=== PATIENT | male | born 1940 | race African-American/Black ===

== ENCOUNTER 2017-07-13 17:52 | Inpatient (IN) | payer MEDICARE ==
[~2017-07-13] VITALS: Ht 182.9 cm; Wt 77.2 kg
[~2017-07-13 17:52] MED LIST: ASPI-612 PO; ASPI325T8 PO; ATOR20TA58 PO; BRIM5DRO2 OP; DORZ10DR3 EACHEYE; FINA5TAB4 PO; LATA2.5D3 EACHEYE; LISI-338 PO; METO25TA4 PO; TAMS0.4C2 PO; TICA90TA PO
[2017-07-13 18:23] LABS: BASO # 0.1 x10^3/uL (0.0-0.2); BASO % 1 % (0-3); EOS % 4 % (0-3); HEMOGLOBIN 13.9 g/dL (13.0-17.5); LYMPH # 1.4 x10^3/uL (1.0-4.8); LYMPH % 22 % (24-48); MEAN CORPUSCULAR HEMOGLOBIN 33 pg (25-35); MEAN CORPUSCULAR HGB CONC 34 g/dL (31-37); MEAN CORPUSCULAR VOLUME 97 fL (79-100); MONO % 10 % (0-9); NEUT % 64 % (31-73); PLATELET COUNT 215 x10^3/uL (140-400); RED BLOOD COUNT 4.23 x10^6/uL (4.30-5.70); RED CELL DISTRIBUTION WIDTH 13.8 % (11.5-14.5); WHITE BLOOD COUNT 6.5 x10^3/uL (4.0-11.0)
[2017-07-13] MEDS ORDERED: LIDO:MAALOX:DONNATAL 1:1:1 15 ML SINGLE DOSE SWSW ONE (18:30)
[2017-07-13 18:40] LABS: CALCIUM 9.6 mg/dL (8.5-10.1); CREATININE 1.2 mg/dL (0.7-1.3); POTASSIUM 4.2 mmol/L (3.5-5.1)
[2017-07-13] MEDS ORDERED: ALBUTEROL SULFATE 2.5 MG/3 ML NEBU. NEB ONE (18:45)
[2017-07-13] MEDS ORDERED: HYDROcodone/APAP 5/325MG 1 TAB TABLET PO ONE (18:45)
[2017-07-13] MEDS ORDERED: fentaNYL PF VIAL 100 MCG/2 ML VIAL IV PRN (18:45)
[2017-07-13] MEDS ORDERED: ONDANSETRON PF 4 MG/2 ML VIAL. IV PRN ×2 (18:45→19:45)
[2017-07-13] MEDS ORDERED: ONDANSETRON PF 4 MG/2 ML VIAL. IV ONE (18:45)
[2017-07-13] MEDS ORDERED: OXYMETAZOLINE 0.05% NASAL SPRAY 30ML BOTTLE. NS ONE (18:45)
[2017-07-13 18:49] LABS: ALBUMIN 3.9 g/dL (3.4-5.0); ALBUMIN/GLOBULIN RATIO 1.1 (1.0-1.7); TOTAL BILIRUBIN 0.4 mg/dL (0.2-1.0); TOTAL PROTEIN 7.4 g/dL (6.4-8.2)
[2017-07-13 19:17] LABS: INR 1.1 (0.8-1.1); PROTHROMBIN TIME PATIENT 13.2 SEC (11.7-14.0)
--- NOTE | 2017-07-13 19:18 | PHYS DOC ---
Past Medical History Past Medical History: High Cholesterol, Hypertension, Other Additional Past Medical Histor: ENLARGED PROSTATE Past Surgical History: Other Additional Past Surgical Histo: STENTS Alcohol Use: None Drug Use: None Adult General Chief Complaint Chief Complaint: CHEST PAIN HPI HPI Patient is a 77 year old male presenting to the emergency department for evaluation of left-sided chest pressure that has been going off and on for the past several weeks but it was much worse today. He thinks that it may get slightly worse with exertion but also says it feels worse after eating as well. He has had some diaphoresis but no nausea vomiting or shortness of breath. He says that this pain feels similar to when he had to get his stents approximately one year ago. 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 Patient took 2 full dose aspirins today in addition to his Plavix. He is in no obvious distress with normal vital signs. Review of Systems Review of Systems Constitutional: Denies fever or chills [] Eyes: Denies change in visual acuity, redness, or eye pain [] HENT: Denies nasal congestion or sore throat [] Respiratory: Denies cough or shortness of breath [] Cardiovascular: + CP GI: Denies abdominal pain, nausea, vomiting, bloody stools or diarrhea [] : Denies dysuria or hematuria [] Musculoskeletal: Denies back pain or joint pain [] Integument: Denies rash or skin lesions [] Neurologic: Denies headache, focal weakness or sensory changes [] All other systems were reviewed and found to be within normal limits, except as documented in this note. Allergies Allergies Allergies Coded Allergies Type Severity Reaction Last Updated Verified No Known Drug Allergies 06/15/16 No Physical Exam Physical Exam Constitutional: Well developed, well nourished, no acute distress, non-toxic appearance. [] HENT: Normocephalic, atraumatic, bilateral external ears normal, oropharynx moist, no oral exudates, nose normal. [] Eyes: PERRLA, EOMI, conjunctiva normal, no discharge. [] Neck: Normal range of motion, no tenderness, supple, no stridor. [] Cardiovascular:Heart rate regular rhythm, no murmur [] Lungs & Thorax: Bilateral breath sounds clear to auscultation [] Abdomen: Bowel sounds normal, soft, no tenderness, no masses, no pulsatile masses. [] Skin: Warm, dry, no erythema, no rash. [] Back: No tenderness, no CVA tenderness. [] Extremities: No tenderness, no cyanosis, no clubbing, ROM intact, no edema. [] Neurologic: Alert and oriented X 3, normal motor function, normal sensory function, no focal deficits noted. [] Current Patient Data Vital Signs Vital Signs Date Time Temp Pulse Resp B/P (MAP) Pulse Ox O2 Delivery O2 Flow Rate FiO2 07/13/17 18:16 97.7 67 18 136/67 (90) 94 Room Air 97.7 Lab Values Laboratory Tests Test 07/13/17 18:10 07/13/17 18:12 Sodium Level 140 mmol/L (136-145) Potassium Level 4.2 mmol/L (3.5-5.1) Chloride Level 108 mmol/L (98-107) H Carbon Dioxide Level 26 mmol/L (21-32) Anion Gap 6 (6-14) Blood Urea Nitrogen 18 mg/dL (8-26) Creatinine 1.2 mg/dL (0.7-1.3) Estimated GFR (Cockcroft-Gault) 71.0 BUN/Creatinine Ratio 15 (6-20) Glucose Level 109 mg/dL (70-99) H Calcium Level 9.6 mg/dL (8.5-10.1) Total Bilirubin 0.4 mg/dL (0.2-1.0) Aspartate Amino Transferase (AST) 23 U/L (15-37) Alanine Aminotransferase (ALT) 26 U/L (16-63) Alkaline Phosphatase 61 U/L (46-116) Troponin I Quantitative < 0.017 ng/mL (0.000-0.055) YU-Gpf-S-Type Natriuretic Peptide 57 pg/mL (0-449) Total Protein 7.4 g/dL (6.4-8.2) Albumin 3.9 g/dL (3.4-5.0) Albumin/Globulin Ratio 1.1 (1.0-1.7) Lipase 556 U/L (73-393) H White Blood Count 6.5 x10^3/uL (4.0-11.0) Red Blood Count 4.23 x10^6/uL (4.30-5.70) L Hemoglobin 13.9 g/dL (13.0-17.5) Hematocrit 41.0 % (39.0-53.0) Mean Corpuscular Volume 97 fL (79-100) Mean Corpuscular Hemoglobin 33 pg (25-35) Mean Corpuscular Hemoglobin Concent 34 g/dL (31-37) Red Cell Distribution Width 13.8 % (11.5-14.5) Platelet Count 215 x10^3/uL (140-400) Neutrophils (%) (Auto) 64 % (31-73) Lymphocytes (%) (Auto) 22 % (24-48) L Monocytes (%) (Auto) 10 % (0-9) H Eosinophils (%) (Auto) 4 % (0-3) H Basophils (%) (Auto) 1 % (0-3) Neutrophils # (Auto) 4.1 x10^3uL (1.8-7.7) Lymphocytes # (Auto) 1.4 x10^3/uL (1.0-4.8) Monocytes # (Auto) 0.6 x10^3/uL (0.0-1.1) Eosinophils # (Auto) 0.3 x10^3/uL (0.0-0.7) Basophils # (Auto) 0.1 x10^3/uL (0.0-0.2) Laboratory Tests 07/13/17 18:12 Laboratory Tests 07/13/17 18:10 EKG EKG Sinus rhythm at 66 beats per minutes with leftward axis no obvious ST elevation or depression with Q waves in the anterior leads and inverted and flattened T waves in the lateral leads Radiology/Procedures Radiology/Procedures [] Course & Med Decision Making Course & Med Decision Making Patient with chest pain and is concerning for possible ischemia given he describes it as the same prior to his stenting. Patient said the GI cocktail helped somewhat however he is still has some discomfort. Lipase is slightly elevated but he has no abdominal tenderness to 90 think that he has pancreatitis. Patient will be admitted for further evaluation and treatment. Dragon Disclaimer Dragon Disclaimer This electronic medical record was generated, in whole or in part, using a voice recognition dictation system. Departure Departure Impression: Primary Impression: Chest pain Additional Impression: Elevated lipase Disposition: ADMITTED INPATIENT Admitting Physician: Almaz Medina Condition: STABLE Referrals: ROSE SAMSON MD (PCP) Problem Qualifiers Primary Impression: Chest pain Chest pain type: unspecified Qualified Codes: R07.9 - Chest pain, unspecified DE PAULA DO Jul 13, 2017 19:18
[2017-07-13] MEDS ORDERED: ACETAMINOPHEN 325 MG TABLET. PO PRN (19:30)
--- NOTE | 2017-07-13 20:03 | PDOC1 ---
History and Physical Date of Admission Date of Admission DATE: 07/13/17 TIME: 19:59 Identification/Chief Complaint Chief Complaint CP Problems: Source Source: Caregiver, Chart review, Patient History of Present Illness History of Present Illness Very pleasant 77 y.o AA male with 2 indwelling stents last placed 2016 marcy Wilmer Zamarripa, has been having intermittent CP last few weeks worse today, midsternal after exertion and also after eating, some mild diaphoresis, no emesis, no SOA, no presyncopal sxs.. EKG reassuring, first set trop 0.04. Still having some left sided dc, feels achy, VS ok, CLaims compliance to his ASA 81 and Brilinta, ABout to have CXR now, Admitted for ACS r.o Wants to just stay overnight, not any longer if possible, Past Medical History Cardiovascular: CAD, HTN Renal/: Benign prostatic enlarg. Past Surgical History Past Surgical History: Other (PCI 2 stents), No pertinent history Family History Family History: No Significant, Hypertension Social History Smoke: No ALCOHOL: none Drugs: None Current Problem List Problem List Problems Medical Problems: (1) Chest pain Status: Acute (2) Elevated lipase Status: Acute Problems: Current Medications Current Medications Current Medications Multi-Ingredient Mouthwash/Gargle (Gi Cocktail Single Dose) 15 ml 1X ONCE SWSW Last administered on 07/13/17 18:46; Start 07/13/17 at 18:30; Stop at 18:31; Status DC Ondansetron HCl (Zofran) 8 mg 1X ONCE IV Last administered on 07/13/17 18:46 ; Start 07/13/17 at 18:45; Stop 07/13/17 at 18:56; Status DC Acetaminophen/ Hydrocodone Bitart (Lortab 5/325) 2 tab 1X ONCE PO Last administered on 07/13/17 18:45; Start 07/13/17 at 18:45; Stop 07/13/17 at 18 :56; Status DC Albuterol Sulfate (Ventolin Neb Soln) 5 mg 1X ONCE NEB ; Start 07/13/17 at 18: 45; Stop 07/13/17 at 18:56; Status DC Oxymetazoline HCl (Afrin) 2 spray 1X ONCE NS ; Start 07/13/17 at 18:45; Stop 07/13/17 at 18:56; Status DC Ondansetron HCl (Zofran) 4 mg PRN Q8HRS PRN IV NAUSEA/VOMITING; Start at 18:45; Stop 07/13/17 at 19:32; Status DC Fentanyl Citrate (Fentanyl 2ml Vial) 50 mcg PRN Q2HR PRN IV PAIN; Start at 18:45; Stop 07/14/17 at 18:44 Ondansetron HCl (Zofran) 4 mg PRN Q6HRS PRN IV NAUSEA/VOMITING; Start at 19:45 Acetaminophen (Tylenol) 650 mg PRN Q6HRS PRN PO pain; Start 07/13/17 at 19:30 Aspirin (Ecotrin) 81 mg DAILYWBKFT PO ; Start 07/14/17 at 08:00 Atorvastatin Calcium (Lipitor) 20 mg QHS PO ; Start 07/13/17 at 21:00 Dorzolamide HCl (Trusopt) 1 drop BID OU ; Start 07/13/17 at 21:00 Finasteride (Proscar) 5 mg DAILY PO ; Start 07/14/17 at 09:00 Latanoprost (Xalatan) 1 drop QHS OU ; Start 07/13/17 at 21:00 Lisinopril (Prinivil) 5 mg DAILY PO ; Start 07/14/17 at 09:00 Metoprolol Tartrate (Lopressor) 12.5 mg BID PO ; Start 07/13/17 at 21:00 Tamsulosin HCl (Flomax) 0.4 mg DAILY PO ; Start 07/14/17 at 09:00 Ticagrelor (Brilinta) 90 mg BID PO ; Start 07/13/17 at 21:00 Brimonidine Tartrate (Alphagan) 1 drop BID OU ; Start 07/13/17 at 21:00 Timolol Maleate (Timoptic 0.5% Ophth) 1 drop BID OU ; Start 07/13/17 at 21:00 Active Scripts Active Brilinta (Ticagrelor) 90 Mg Tablet 90 Mg PO BID Metoprolol Tartrate 25 Mg Tablet 12.5 Mg PO BID Lisinopril 5 Mg Tablet 5 Mg PO DAILY Atorvastatin Calcium 20 Mg Tablet 20 Mg PO QHS Aspirin Ec (Aspirin) 81 Mg Tablet. 81 Mg PO DAILYWBKFT Reported Latanoprost 2.5 Ml Drops 1 Drop EACHEYE QHS Dorzolamide Hcl 10 Ml Drops 1 Drop EACHEYE BID Tamsulosin Hcl 0.4 Mg Cap.er.24h 0.4 Mg PO DAILY Finasteride 5 Mg Tablet 5 Mg PO DAILY Combigan Eye Drops (Brimonidine Tartrate/Timolol) 5 Ml Drops 5 Ml OP BID Allergies Allergies: Coded Allergies: No Known Drug Allergies (Unverified , 06/15/16) ROS Review of System as per HPI all else is neg 14 pt reviewed Physical Exam General: Alert, Oriented X3, Cooperative, No acute distress HEENT: Atraumatic, PERRLA Lungs: Clear to auscultation, Normal air movement Heart: S1S2, RRR, no thrills, no rubs, no gallops Cardiovascular: S1, S2 Breasts: Normal, Rt breast nml w/o mass, Lt breast nml w/o mass, Nipples normal Abdomen: Normal bowel sounds, Soft, No tenderness, No hepatosplenomegaly, No masses Male Genitals Exam: normal genitalia, normal prostate Rectal Exam: not examined PELVIC: Nml ext genitalia Extremities: No clubbing, No cyanosis, No edema, Normal pulses, No tenderness/ swelling Skin: No rashes, No breakdown, No significant lesion Neuro: Normal gait, Normal speech, Strength at 5/5 X4 ext, Normal tone, Sensation intact, Cranial nerves 3-12 NL, Reflexes 2+ Psych/Mental Status: Mental status NL, Mood NL Vitals Vitals Vital Signs Date Time Temp Pulse Resp B/P (MAP) Pulse Ox O2 Delivery O2 Flow Rate FiO2 07/13/17 18:45 Room Air 07/13/17 18:16 97.7 67 18 136/67 (90) 94 97.7 Labs Labs Laboratory Tests Test 07/13/17 18:10 07/13/17 18:12 07/13/17 18:54 Sodium Level 140 mmol/L (136-145) Potassium Level 4.2 mmol/L (3.5-5.1) Chloride Level 108 mmol/L (98-107) Carbon Dioxide Level 26 mmol/L (21-32) Anion Gap 6 (6-14) Blood Urea Nitrogen 18 mg/dL (8-26) Creatinine 1.2 mg/dL (0.7-1.3) Estimated GFR (Cockcroft-Gault) 71.0 BUN/Creatinine Ratio 15 (6-20) Glucose Level 109 mg/dL (70-99) Calcium Level 9.6 mg/dL (8.5-10.1) Total Bilirubin 0.4 mg/dL (0.2-1.0) Aspartate Amino Transf (AST/SGOT) 23 U/L (15-37) Alanine Aminotransferase (ALT/SGPT) 26 U/L (16-63) Alkaline Phosphatase 61 U/L (46-116) Troponin I Quantitative < 0.017 ng/mL (0.000-0.055) JV-Hyr-B-Type Natriuretic Peptide 57 pg/mL (0-449) Total Protein 7.4 g/dL (6.4-8.2) Albumin 3.9 g/dL (3.4-5.0) Albumin/Globulin Ratio 1.1 (1.0-1.7) Lipase 556 U/L (73-393) White Blood Count 6.5 x10^3/uL (4.0-11.0) Red Blood Count 4.23 x10^6/uL (4.30-5.70) Hemoglobin 13.9 g/dL (13.0-17.5) Hematocrit 41.0 % (39.0-53.0) Mean Corpuscular Volume 97 fL (79-100) Mean Corpuscular Hemoglobin 33 pg (25-35) Mean Corpuscular Hemoglobin Concent 34 g/dL (31-37) Red Cell Distribution Width 13.8 % (11.5-14.5) Platelet Count 215 x10^3/uL (140-400) Neutrophils (%) (Auto) 64 % (31-73) Lymphocytes (%) (Auto) 22 % (24-48) Monocytes (%) (Auto) 10 % (0-9) Eosinophils (%) (Auto) 4 % (0-3) Basophils (%) (Auto) 1 % (0-3) Neutrophils # (Auto) 4.1 x10^3uL (1.8-7.7) Lymphocytes # (Auto) 1.4 x10^3/uL (1.0-4.8) Monocytes # (Auto) 0.6 x10^3/uL (0.0-1.1) Eosinophils # (Auto) 0.3 x10^3/uL (0.0-0.7) Basophils # (Auto) 0.1 x10^3/uL (0.0-0.2) Prothrombin Time 13.2 SEC (11.7-14.0) Prothromb Time International Ratio 1.1 (0.8-1.1) Activated Partial Thromboplast Time 31 SEC (24-38) Laboratory Tests Test 07/13/17 18:10 07/13/17 18:12 07/13/17 18:54 Sodium Level 140 mmol/L (136-145) Potassium Level 4.2 mmol/L (3.5-5.1) Chloride Level 108 mmol/L (98-107) Carbon Dioxide Level 26 mmol/L (21-32) Anion Gap 6 (6-14) Blood Urea Nitrogen 18 mg/dL (8-26) Creatinine 1.2 mg/dL (0.7-1.3) Estimated GFR (Cockcroft-Gault) 71.0 BUN/Creatinine Ratio 15 (6-20) Glucose Level 109 mg/dL (70-99) Calcium Level 9.6 mg/dL (8.5-10.1) Total Bilirubin 0.4 mg/dL (0.2-1.0) Aspartate Amino Transf (AST/SGOT) 23 U/L (15-37) Alanine Aminotransferase (ALT/SGPT) 26 U/L (16-63) Alkaline Phosphatase 61 U/L (46-116) Troponin I Quantitative < 0.017 ng/mL (0.000-0.055) MO-Ltq-I-Type Natriuretic Peptide 57 pg/mL (0-449) Total Protein 7.4 g/dL (6.4-8.2) Albumin 3.9 g/dL (3.4-5.0) Albumin/Globulin Ratio 1.1 (1.0-1.7) Lipase 556 U/L (73-393) White Blood Count 6.5 x10^3/uL (4.0-11.0) Red Blood Count 4.23 x10^6/uL (4.30-5.70) Hemoglobin 13.9 g/dL (13.0-17.5) Hematocrit 41.0 % (39.0-53.0) Mean Corpuscular Volume 97 fL (79-100) Mean Corpuscular Hemoglobin 33 pg (25-35) Mean Corpuscular Hemoglobin Concent 34 g/dL (31-37) Red Cell Distribution Width 13.8 % (11.5-14.5) Platelet Count 215 x10^3/uL (140-400) Neutrophils (%) (Auto) 64 % (31-73) Lymphocytes (%) (Auto) 22 % (24-48) Monocytes (%) (Auto) 10 % (0-9) Eosinophils (%) (Auto) 4 % (0-3) Basophils (%) (Auto) 1 % (0-3) Neutrophils # (Auto) 4.1 x10^3uL (1.8-7.7) Lymphocytes # (Auto) 1.4 x10^3/uL (1.0-4.8) Monocytes # (Auto) 0.6 x10^3/uL (0.0-1.1) Eosinophils # (Auto) 0.3 x10^3/uL (0.0-0.7) Basophils # (Auto) 0.1 x10^3/uL (0.0-0.2) Prothrombin Time 13.2 SEC (11.7-14.0) Prothromb Time International Ratio 1.1 (0.8-1.1) Activated Partial Thromboplast Time 31 SEC (24-38) VTE Prophylaxis Ordered VTE Prophylaxis Devices: Yes VTE Pharmacological Prophylaxi: Yes Assessment/Plan Assessment/Plan 1. Chest pain 2. CAD 2 indwelling stents 3. HTN, controlled 4. BPH PLAN Admit Cards consut Cycle CE Resume home meds ff up cXR Keep tele monitor ARASH DYE MD Jul 13, 2017 20:03
[2017-07-13 20:15] VITALS: BP 130/76
[2017-07-13] MEDS ORDERED: CLOP75TA PO (20:39)
[2017-07-13] MEDS ORDERED: CHOL500021 PO (20:43)
[2017-07-13] MEDS ORDERED: MULT1TAB52 PO (20:43)
[2017-07-13] MEDS: METOPROLOL TART IMMED RELEASE 25 MG TABLET. PO SCH (20:48)
[2017-07-13] MEDS: ATORVASTATIN CALCIUM 20 MG TABLET PO SCH (21:00)
[2017-07-13] MEDS: BRIMONIDINE 0.2% OPHTH SOLUTION 5ML BOTTLE. OU SCH (21:00)
[2017-07-13] MEDS: TIMOLOL 0.5% OPHTH SOLUTION 5ML BOTTLE. OU SCH (21:00)
[2017-07-13] MEDS ORDERED: DORZOLAMIDE 2% OPHTH SOLUTION 10ML BOTTLE. OU SCH (21:00)
[2017-07-13] MEDS ORDERED: TICAGRELOR 90 MG TABLET. PO SCH (21:00)
[2017-07-13] MEDS: LATANOPROST 0.005% OPHTH SOLUTION 2.5ML BOTTLE. OU SCH (21:48)
[2017-07-13] MEDS ORDERED: PRED5DRO16 EACHEYE (21:58)
[2017-07-13] MEDS: DEXAMETHASONE 0.1% OPHTH SOLUTION 5ML BOTTLE. OU SCH (22:54)
[2017-07-13 23:50] VITALS: BP 109/53
[2017-07-14] MEDS: DEXAMETHASONE 0.1% OPHTH SOLUTION 5ML BOTTLE. OU SCH ×7 (02:00→21:00)
[2017-07-14 03:59] VITALS: BP 123/62
[2017-07-14 05:31] LABS: BASO % 1 % (0-3); EOS % 5 % (0-3); HEMATOCRIT 39.7 % (39.0-53.0); LYMPH # 1.8 x10^3/uL (1.0-4.8); LYMPH % 30 % (24-48); MEAN CORPUSCULAR HEMOGLOBIN 33 pg (25-35); MEAN CORPUSCULAR HGB CONC 33 g/dL (31-37); MEAN CORPUSCULAR VOLUME 99 fL (79-100); MONO % 12 % (0-9); NEUT % 52 % (31-73); PLATELET COUNT 205 x10^3/uL (140-400); RED BLOOD COUNT 4.01 x10^6/uL (4.30-5.70); RED CELL DISTRIBUTION WIDTH 13.4 % (11.5-14.5); WHITE BLOOD COUNT 6.1 x10^3/uL (4.0-11.0)
[2017-07-14 06:03] LABS: CALCIUM 9.4 mg/dL (8.5-10.1); CREATININE 1.2 mg/dL (0.7-1.3); POTASSIUM 4.3 mmol/L (3.5-5.1)
[2017-07-14 06:09] LABS: CHOLESTEROL/HDL RATIO 3.1
--- NOTE | 2017-07-14 07:29 | EKG ---
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
[2017-07-14 07:43] VITALS: BP 125/65
--- NOTE | 2017-07-14 07:46 | RAD ---
Single view chest History:Chest pain An AP view of the chest is submitted. Comparison: 06/15/2016. Findings: There is no significant infiltrate, pleural effusion, or pneumothorax. The pericardial cardiac silhouette is within normal limits in size. Impression: There is no evidence of acute cardiopulmonary disease.
[2017-07-14] MEDS: DORZOLAMIDE 2% OPHTH SOLUTION 10ML BOTTLE. OU SCH ×3 (08:01→21:00)
[2017-07-14] MEDS: TIMOLOL 0.5% OPHTH SOLUTION 5ML BOTTLE. OU SCH ×2 (08:01→21:00)
[2017-07-14] MEDS: BRIMONIDINE 0.2% OPHTH SOLUTION 5ML BOTTLE. OU SCH ×2 (08:02→21:00)
[2017-07-14] MEDS: LISINOPRIL 5 MG TABLET. PO SCH (08:03)
[2017-07-14] MEDS: METOPROLOL TART IMMED RELEASE 25 MG TABLET. PO SCH ×2 (08:04→21:00)
[2017-07-14] MEDS: FINASTERIDE 5 MG TABLET. PO SCH (08:04)
[2017-07-14] MEDS: CHOLECALCIFEROL (VITAMIN D3) 1,000 UNIT TABLET PO SCH (08:04)
[2017-07-14] MEDS: TAMSULOSIN 0.4 MG CAP.ER.24H. PO SCH ×2 (08:04→21:00)
[2017-07-14] MEDS: MULTIVITAMIN with MINERAL TABLET. PO SCH (08:04)
[2017-07-14] MEDS: ASPIRIN ENTERIC COATED 81 MG TABLET.DR. PO SCH (08:04)
[2017-07-14] MEDS: CLOPIDOGREL BISULFATE 75 MG TABLET PO SCH (08:05)
[2017-07-14] MEDS ORDERED: TAMSULOSIN 0.4 MG CAP.ER.24H. PO SCH (09:00)
--- NOTE | 2017-07-14 10:48 | PDOC ---
PROGRESS NOTES Chief Complaint Chief Complaint 1. Chest pain 2. CAD 2 indwelling stents 3. HTN, controlled 4. BPH History of Present Illness History of Present Illness Some left sided CP after eating NO epig or abd pain "CP" still somewhat there Known pt of Sushant Zamarripa - not on brilinta anymore, claims compliance Trop x 3 is neg SANTOS: Trial PPI Maalox prn Await cards rounds Dw him Vitals Vitals Vital Signs Date Time Temp Pulse Resp B/P (MAP) Pulse Ox O2 Delivery O2 Flow Rate FiO2 07/14/17 08:04 85 125/65 07/14/17 07:43 97.7 17 100 Room Air 97.7 Physical Exam General: Alert, Oriented X3, Cooperative, No acute distress Lungs: Clear Abdomen: Normal bowel sounds, Soft, No tenderness, No hepatosplenomegaly, No masses Extremities: No clubbing, No cyanosis, No edema, Normal pulses, No tenderness/ swelling Skin: No rashes, No breakdown, No significant lesion Labs LABS Laboratory Tests Test 07/13/17 18:10 07/13/17 18:12 07/13/17 18:54 07/14/17 00:30 Sodium Level 140 mmol/L (136-145) Potassium Level 4.2 mmol/L (3.5-5.1) Chloride Level 108 mmol/L (98-107) Carbon Dioxide Level 26 mmol/L (21-32) Anion Gap 6 (6-14) Blood Urea Nitrogen 18 mg/dL (8-26) Creatinine 1.2 mg/dL (0.7-1.3) Estimated GFR (Cockcroft-Gault) 71.0 BUN/Creatinine Ratio 15 (6-20) Glucose Level 109 mg/dL (70-99) Calcium Level 9.6 mg/dL (8.5-10.1) Total Bilirubin 0.4 mg/dL (0.2-1.0) Aspartate Amino Transf (AST/SGOT) 23 U/L (15-37) Alanine Aminotransferase (ALT/SGPT) 26 U/L (16-63) Alkaline Phosphatase 61 U/L (46-116) Troponin I Quantitative < 0.017 ng/mL (0.000-0.055) < 0.017 ng/mL (0.000-0.055) DD-Lbb-F-Type Natriuretic Peptide 57 pg/mL (0-449) Total Protein 7.4 g/dL (6.4-8.2) Albumin 3.9 g/dL (3.4-5.0) Albumin/Globulin Ratio 1.1 (1.0-1.7) Lipase 556 U/L (73-393) White Blood Count 6.5 x10^3/uL (4.0-11.0) Red Blood Count 4.23 x10^6/uL (4.30-5.70) Hemoglobin 13.9 g/dL (13.0-17.5) Hematocrit 41.0 % (39.0-53.0) Mean Corpuscular Volume 97 fL (79-100) Mean Corpuscular Hemoglobin 33 pg (25-35) Mean Corpuscular Hemoglobin Concent 34 g/dL (31-37) Red Cell Distribution Width 13.8 % (11.5-14.5) Platelet Count 215 x10^3/uL (140-400) Neutrophils (%) (Auto) 64 % (31-73) Lymphocytes (%) (Auto) 22 % (24-48) Monocytes (%) (Auto) 10 % (0-9) Eosinophils (%) (Auto) 4 % (0-3) Basophils (%) (Auto) 1 % (0-3) Neutrophils # (Auto) 4.1 x10^3uL (1.8-7.7) Lymphocytes # (Auto) 1.4 x10^3/uL (1.0-4.8) Monocytes # (Auto) 0.6 x10^3/uL (0.0-1.1) Eosinophils # (Auto) 0.3 x10^3/uL (0.0-0.7) Basophils # (Auto) 0.1 x10^3/uL (0.0-0.2) Prothrombin Time 13.2 SEC (11.7-14.0) Prothromb Time International Ratio 1.1 (0.8-1.1) Activated Partial Thromboplast Time 31 SEC (24-38) Test 07/14/17 05:20 White Blood Count 6.1 x10^3/uL (4.0-11.0) Red Blood Count 4.01 x10^6/uL (4.30-5.70) Hemoglobin 13.0 g/dL (13.0-17.5) Hematocrit 39.7 % (39.0-53.0) Mean Corpuscular Volume 99 fL (79-100) Mean Corpuscular Hemoglobin 33 pg (25-35) Mean Corpuscular Hemoglobin Concent 33 g/dL (31-37) Red Cell Distribution Width 13.4 % (11.5-14.5) Platelet Count 205 x10^3/uL (140-400) Neutrophils (%) (Auto) 52 % (31-73) Lymphocytes (%) (Auto) 30 % (24-48) Monocytes (%) (Auto) 12 % (0-9) Eosinophils (%) (Auto) 5 % (0-3) Basophils (%) (Auto) 1 % (0-3) Neutrophils # (Auto) 3.1 x10^3uL (1.8-7.7) Lymphocytes # (Auto) 1.8 x10^3/uL (1.0-4.8) Monocytes # (Auto) 0.7 x10^3/uL (0.0-1.1) Eosinophils # (Auto) 0.3 x10^3/uL (0.0-0.7) Basophils # (Auto) 0.0 x10^3/uL (0.0-0.2) Sodium Level 143 mmol/L (136-145) Potassium Level 4.3 mmol/L (3.5-5.1) Chloride Level 108 mmol/L (98-107) Carbon Dioxide Level 30 mmol/L (21-32) Anion Gap 5 (6-14) Blood Urea Nitrogen 19 mg/dL (8-26) Creatinine 1.2 mg/dL (0.7-1.3) Estimated GFR (Cockcroft-Gault) 71.0 Glucose Level 95 mg/dL (70-99) Calcium Level 9.4 mg/dL (8.5-10.1) Troponin I Quantitative < 0.017 ng/mL (0.000-0.055) Triglycerides Level 67 mg/dL (0-150) Cholesterol Level 107 mg/dL (0-200) LDL Cholesterol, Calculated 59 mg/dL (0-100) VLDL Cholesterol, Calculated 13 mg/dL (0-40) Non-HDL Cholesterol Calculated 72 mg/dL (0-129) HDL Cholesterol 35 mg/dL (40-60) Cholesterol/HDL Ratio 3.1 Review of Systems Review of Systems Chest dc, no soa, pND, orthopnea, pre syncopal sxs Assessment and Plan Assessmemt and Plan Problems Medical Problems: (1) Chest pain Status: Acute (2) Elevated lipase Status: Acute Problems: Comment Review of Relevant I have reviewed the following items khoa (where applicable) has been applied. Labs Laboratory Tests Test 07/13/17 18:10 07/13/17 18:12 07/13/17 18:54 07/14/17 00:30 Sodium Level 140 mmol/L (136-145) Potassium Level 4.2 mmol/L (3.5-5.1) Chloride Level 108 mmol/L (98-107) Carbon Dioxide Level 26 mmol/L (21-32) Anion Gap 6 (6-14) Blood Urea Nitrogen 18 mg/dL (8-26) Creatinine 1.2 mg/dL (0.7-1.3) Estimated GFR (Cockcroft-Gault) 71.0 BUN/Creatinine Ratio 15 (6-20) Glucose Level 109 mg/dL (70-99) Calcium Level 9.6 mg/dL (8.5-10.1) Total Bilirubin 0.4 mg/dL (0.2-1.0) Aspartate Amino Transf (AST/SGOT) 23 U/L (15-37) Alanine Aminotransferase (ALT/SGPT) 26 U/L (16-63) Alkaline Phosphatase 61 U/L (46-116) Troponin I Quantitative < 0.017 ng/mL (0.000-0.055) < 0.017 ng/mL (0.000-0.055) IL-Vpj-N-Type Natriuretic Peptide 57 pg/mL (0-449) Total Protein 7.4 g/dL (6.4-8.2) Albumin 3.9 g/dL (3.4-5.0) Albumin/Globulin Ratio 1.1 (1.0-1.7) Lipase 556 U/L (73-393) White Blood Count 6.5 x10^3/uL (4.0-11.0) Red Blood Count 4.23 x10^6/uL (4.30-5.70) Hemoglobin 13.9 g/dL (13.0-17.5) Hematocrit 41.0 % (39.0-53.0) Mean Corpuscular Volume 97 fL (79-100) Mean Corpuscular Hemoglobin 33 pg (25-35) Mean Corpuscular Hemoglobin Concent 34 g/dL (31-37) Red Cell Distribution Width 13.8 % (11.5-14.5) Platelet Count 215 x10^3/uL (140-400) Neutrophils (%) (Auto) 64 % (31-73) Lymphocytes (%) (Auto) 22 % (24-48) Monocytes (%) (Auto) 10 % (0-9) Eosinophils (%) (Auto) 4 % (0-3) Basophils (%) (Auto) 1 % (0-3) Neutrophils # (Auto) 4.1 x10^3uL (1.8-7.7) Lymphocytes # (Auto) 1.4 x10^3/uL (1.0-4.8) Monocytes # (Auto) 0.6 x10^3/uL (0.0-1.1) Eosinophils # (Auto) 0.3 x10^3/uL (0.0-0.7) Basophils # (Auto) 0.1 x10^3/uL (0.0-0.2) Prothrombin Time 13.2 SEC (11.7-14.0) Prothromb Time International Ratio 1.1 (0.8-1.1) Activated Partial Thromboplast Time 31 SEC (24-38) Test 07/14/17 05:20 White Blood Count 6.1 x10^3/uL (4.0-11.0) Red Blood Count 4.01 x10^6/uL (4.30-5.70) Hemoglobin 13.0 g/dL (13.0-17.5) Hematocrit 39.7 % (39.0-53.0) Mean Corpuscular Volume 99 fL (79-100) Mean Corpuscular Hemoglobin 33 pg (25-35) Mean Corpuscular Hemoglobin Concent 33 g/dL (31-37) Red Cell Distribution Width 13.4 % (11.5-14.5) Platelet Count 205 x10^3/uL (140-400) Neutrophils (%) (Auto) 52 % (31-73) Lymphocytes (%) (Auto) 30 % (24-48) Monocytes (%) (Auto) 12 % (0-9) Eosinophils (%) (Auto) 5 % (0-3) Basophils (%) (Auto) 1 % (0-3) Neutrophils # (Auto) 3.1 x10^3uL (1.8-7.7) Lymphocytes # (Auto) 1.8 x10^3/uL (1.0-4.8) Monocytes # (Auto) 0.7 x10^3/uL (0.0-1.1) Eosinophils # (Auto) 0.3 x10^3/uL (0.0-0.7) Basophils # (Auto) 0.0 x10^3/uL (0.0-0.2) Sodium Level 143 mmol/L (136-145) Potassium Level 4.3 mmol/L (3.5-5.1) Chloride Level 108 mmol/L (98-107) Carbon Dioxide Level 30 mmol/L (21-32) Anion Gap 5 (6-14) Blood Urea Nitrogen 19 mg/dL (8-26) Creatinine 1.2 mg/dL (0.7-1.3) Estimated GFR (Cockcroft-Gault) 71.0 Glucose Level 95 mg/dL (70-99) Calcium Level 9.4 mg/dL (8.5-10.1) Troponin I Quantitative < 0.017 ng/mL (0.000-0.055) Triglycerides Level 67 mg/dL (0-150) Cholesterol Level 107 mg/dL (0-200) LDL Cholesterol, Calculated 59 mg/dL (0-100) VLDL Cholesterol, Calculated 13 mg/dL (0-40) Non-HDL Cholesterol Calculated 72 mg/dL (0-129) HDL Cholesterol 35 mg/dL (40-60) Cholesterol/HDL Ratio 3.1 Laboratory Tests Test 07/13/17 18:10 07/13/17 18:12 07/13/17 18:54 07/14/17 00:30 Sodium Level 140 mmol/L (136-145) Potassium Level 4.2 mmol/L (3.5-5.1) Chloride Level 108 mmol/L (98-107) Carbon Dioxide Level 26 mmol/L (21-32) Anion Gap 6 (6-14) Blood Urea Nitrogen 18 mg/dL (8-26) Creatinine 1.2 mg/dL (0.7-1.3) Estimated GFR (Cockcroft-Gault) 71.0 BUN/Creatinine Ratio 15 (6-20) Glucose Level 109 mg/dL (70-99) Calcium Level 9.6 mg/dL (8.5-10.1) Total Bilirubin 0.4 mg/dL (0.2-1.0) Aspartate Amino Transf (AST/SGOT) 23 U/L (15-37) Alanine Aminotransferase (ALT/SGPT) 26 U/L (16-63) Alkaline Phosphatase 61 U/L (46-116) Troponin I Quantitative < 0.017 ng/mL (0.000-0.055) < 0.017 ng/mL (0.000-0.055) RZ-Qax-B-Type Natriuretic Peptide 57 pg/mL (0-449) Total Protein 7.4 g/dL (6.4-8.2) Albumin 3.9 g/dL (3.4-5.0) Albumin/Globulin Ratio 1.1 (1.0-1.7) Lipase 556 U/L (73-393) White Blood Count 6.5 x10^3/uL (4.0-11.0) Red Blood Count 4.23 x10^6/uL (4.30-5.70) Hemoglobin 13.9 g/dL (13.0-17.5) Hematocrit 41.0 % (39.0-53.0) Mean Corpuscular Volume 97 fL (79-100) Mean Corpuscular Hemoglobin 33 pg (25-35) Mean Corpuscular Hemoglobin Concent 34 g/dL (31-37) Red Cell Distribution Width 13.8 % (11.5-14.5) Platelet Count 215 x10^3/uL (140-400) Neutrophils (%) (Auto) 64 % (31-73) Lymphocytes (%) (Auto) 22 % (24-48) Monocytes (%) (Auto) 10 % (0-9) Eosinophils (%) (Auto) 4 % (0-3) Basophils (%) (Auto) 1 % (0-3) Neutrophils # (Auto) 4.1 x10^3uL (1.8-7.7) Lymphocytes # (Auto) 1.4 x10^3/uL (1.0-4.8) Monocytes # (Auto) 0.6 x10^3/uL (0.0-1.1) Eosinophils # (Auto) 0.3 x10^3/uL (0.0-0.7) Basophils # (Auto) 0.1 x10^3/uL (0.0-0.2) Prothrombin Time 13.2 SEC (11.7-14.0) Prothromb Time International Ratio 1.1 (0.8-1.1) Activated Partial Thromboplast Time 31 SEC (24-38) Test 07/14/17 05:20 White Blood Count 6.1 x10^3/uL (4.0-11.0) Red Blood Count 4.01 x10^6/uL (4.30-5.70) Hemoglobin 13.0 g/dL (13.0-17.5) Hematocrit 39.7 % (39.0-53.0) Mean Corpuscular Volume 99 fL (79-100) Mean Corpuscular Hemoglobin 33 pg (25-35) Mean Corpuscular Hemoglobin Concent 33 g/dL (31-37) Red Cell Distribution Width 13.4 % (11.5-14.5) Platelet Count 205 x10^3/uL (140-400) Neutrophils (%) (Auto) 52 % (31-73) Lymphocytes (%) (Auto) 30 % (24-48) Monocytes (%) (Auto) 12 % (0-9) Eosinophils (%) (Auto) 5 % (0-3) Basophils (%) (Auto) 1 % (0-3) Neutrophils # (Auto) 3.1 x10^3uL (1.8-7.7) Lymphocytes # (Auto) 1.8 x10^3/uL (1.0-4.8) Monocytes # (Auto) 0.7 x10^3/uL (0.0-1.1) Eosinophils # (Auto) 0.3 x10^3/uL (0.0-0.7) Basophils # (Auto) 0.0 x10^3/uL (0.0-0.2) Sodium Level 143 mmol/L (136-145) Potassium Level 4.3 mmol/L (3.5-5.1) Chloride Level 108 mmol/L (98-107) Carbon Dioxide Level 30 mmol/L (21-32) Anion Gap 5 (6-14) Blood Urea Nitrogen 19 mg/dL (8-26) Creatinine 1.2 mg/dL (0.7-1.3) Estimated GFR (Cockcroft-Gault) 71.0 Glucose Level 95 mg/dL (70-99) Calcium Level 9.4 mg/dL (8.5-10.1) Troponin I Quantitative < 0.017 ng/mL (0.000-0.055) Triglycerides Level 67 mg/dL (0-150) Cholesterol Level 107 mg/dL (0-200) LDL Cholesterol, Calculated 59 mg/dL (0-100) VLDL Cholesterol, Calculated 13 mg/dL (0-40) Non-HDL Cholesterol Calculated 72 mg/dL (0-129) HDL Cholesterol 35 mg/dL (40-60) Cholesterol/HDL Ratio 3.1 Medications Current Medications Multi-Ingredient Mouthwash/Gargle (Gi Cocktail Single Dose) 15 ml 1X ONCE SWSW Last administered on 07/13/17 18:46; Start 07/13/17 at 18:30; Stop at 18:31; Status DC Ondansetron HCl (Zofran) 8 mg 1X ONCE IV Last administered on 07/13/17 18:46 ; Start 07/13/17 at 18:45; Stop 07/13/17 at 18:56; Status DC Acetaminophen/ Hydrocodone Bitart (Lortab 5/325) 2 tab 1X ONCE PO Last administered on 07/13/17 18:45; Start 07/13/17 at 18:45; Stop 07/13/17 at 18 :56; Status DC Albuterol Sulfate (Ventolin Neb Soln) 5 mg 1X ONCE NEB ; Start 07/13/17 at 18: 45; Stop 07/13/17 at 18:56; Status DC Oxymetazoline HCl (Afrin) 2 spray 1X ONCE NS ; Start 07/13/17 at 18:45; Stop 07/13/17 at 18:56; Status DC Ondansetron HCl (Zofran) 4 mg PRN Q8HRS PRN IV NAUSEA/VOMITING; Start at 18:45; Stop 07/13/17 at 19:32; Status DC Fentanyl Citrate (Fentanyl 2ml Vial) 50 mcg PRN Q2HR PRN IV PAIN; Start at 18:45; Stop 07/14/17 at 18:44 Ondansetron HCl (Zofran) 4 mg PRN Q6HRS PRN IV NAUSEA/VOMITING; Start at 19:45 Acetaminophen (Tylenol) 650 mg PRN Q6HRS PRN PO pain; Start 07/13/17 at 19:30 Aspirin (Ecotrin) 81 mg DAILYWBKFT PO Last administered on 07/14/17 08:04; Start 07/14/17 at 08:00 Atorvastatin Calcium (Lipitor) 20 mg QHS PO Last administered on 07/13/17 21: 00; Start 07/13/17 at 21:00 Dorzolamide HCl (Trusopt) 1 drop BID OU ; Start 07/13/17 at 21:00; Stop at 22:16; Status DC Finasteride (Proscar) 5 mg DAILY PO Last administered on 07/14/17 08:04; Start 07/14/17 at 09:00 Latanoprost (Xalatan) 1 drop QHS OU Last administered on 07/13/17 21:48; Start 07/13/17 at 21:00 Lisinopril (Prinivil) 5 mg DAILY PO Last administered on 07/14/17 08:03; Start 07/14/17 at 09:00 Metoprolol Tartrate (Lopressor) 12.5 mg BID PO Last administered on 07/14/17 08:04; Start 07/13/17 at 21:00 Tamsulosin HCl (Flomax) 0.4 mg DAILY PO ; Start 07/14/17 at 09:00; Stop at 09:00; Status DC Ticagrelor (Brilinta) 90 mg BID PO ; Start 07/13/17 at 21:00; Stop 07/13/17 at 22:16; Status DC Brimonidine Tartrate (Alphagan) 1 drop BID OU Last administered on 07/14/17 08:02; Start 07/13/17 at 21:00 Timolol Maleate (Timoptic 0.5% [facility]) 1 drop BID OU Last administered on 08:01; Start 07/13/17 at 21:00 Dorzolamide HCl (Trusopt) 1 drop TID OU Last administered on 07/14/17 08:01; Start 07/14/17 at 09:00 Tamsulosin HCl (Flomax) 0.4 mg BID PO Last administered on 07/14/17 08:04; Start 07/14/17 at 09:00 Clopidogrel Bisulfate (Plavix) 75 mg DAILYWBKFT PO Last administered on 08:05; Start 07/14/17 at 08:00 Vitamin D (Vitamin D3) 500 unit DAILY PO Last administered on 07/14/17 08:04 ; Start 07/14/17 at 09:00 Multivitamins (Thera M Plus) 1 tab DAILY PO Last administered on 07/14/17 08: 04; Start 07/14/17 at 09:00 Dexamethasone (Maxidex) 1 drop Q2HR OU Last administered on 07/14/17 07:59; Start 07/14/17 at 00:00 Active Scripts Active Brilinta (Ticagrelor) 90 Mg Tablet 90 Mg PO BID Metoprolol Tartrate 25 Mg Tablet 12.5 Mg PO BID Lisinopril 5 Mg Tablet 5 Mg PO DAILY Atorvastatin Calcium 20 Mg Tablet 20 Mg PO QHS Aspirin Ec (Aspirin) 81 Mg Tablet.dr 81 Mg PO DAILYWBKFT Reported Prednisolone Acetate 5 Ml Drops.susp 1 Drop EACHEYE Q2HR Multivitamins (Multivitamin) 1 Each Tablet 1 Tab PO DAILY D3-50 (Cholecalciferol (Vitamin D3)) 50,000 Unit Capsule 50,000 Unit PO DAILY Clopidogrel (Clopidogrel Bisulfate) 75 Mg Tablet 1 Tab PO DAILY Latanoprost 2.5 Ml Drops 1 Drop EACHEYE QHS Dorzolamide Hcl 10 Ml Drops 1 Drop EACHEYE TID Tamsulosin Hcl 0.4 Mg Cap.er.24h 0.4 Mg PO BID Finasteride 5 Mg Tablet 5 Mg PO DAILY Combigan Eye Drops (Brimonidine Tartrate/Timolol) 5 Ml Drops 5 Ml OP BID Vitals/I & O Vital Sign - Last 24 Hours 07/13/17 07/13/17 07/13/17 07/13/17 18:16 18:45 20:15 20:30 Temp 97.7 97.3 97.7 97.3 Pulse 67 61 Resp 18 16 B/P (MAP) 136/67 (90) 130/76 (94) Pulse Ox 94 98 O2 Delivery Room Air Room Air Room Air Room Air 07/13/17 07/13/17 07/14/17 07/14/17 20:48 23:50 03:59 07:43 Temp 97.6 97.5 97.7 97.6 97.5 97.7 Pulse 61 61 52 85 Resp 16 16 17 B/P (MAP) 130/76 109/53 (71) 123/62 (82) 125/65 (85) Pulse Ox 100 100 100 O2 Delivery Room Air Room Air Room Air 07/14/17 07/14/17 08:03 08:04 Pulse 85 85 B/P (MAP) 125/65 125/65 Intake and Output 07/13/17 07/13/17 07/14/17 15:00 23:00 07:00 Intake Total 580 ml Balance 580 ml ARASH DYE MD Jul 14, 2017 10:48
[2017-07-14] MEDS ORDERED: MAG HYDROX/ALUMINUM HYD/SIMETH 30 ML ORAL.SUSP PO PRN (11:00)
[2017-07-14 11:03] VITALS: BP 126/67
[2017-07-14] MEDS: PANTOPRAZOLE 40 MG TABLET.DR. PO SCH (12:42)
[2017-07-14 15:04] VITALS: BP 124/70
--- NOTE | 2017-07-14 19:03 | CONS ---
DATE OF CONSULTATION: 07/14/2017 REASON FOR CONSULTATION: Chest pain. HISTORY OF PRESENT ILLNESS: The patient is a 77-year-old man who presents to the hospital in the setting of atypical chest pain. Of note, he had some atypical chest pain last year, which ultimately prompted a cardiac catheterization and 2-vessel intervention for coronary artery disease. At baseline, the patient reports he has been doing functionally quite well. Denies any orthopnea, dyspnea, PND or lower extremity edema. No syncope or palpitations. He had some irregular chest tightness across his precordium without any alleviating or exacerbating factors and in light of this due to concern, reported to the hospital. He reports that his symptoms this time around are similar to, but not exactly likely he has had before. He reports compliance with his medications. His dietary habits have been less than optimal. PAST MEDICAL HISTORY: 1. Coronary artery disease. 2. Dyslipidemia. 3. Mild hypertension. ALLERGIES: No known drug allergies. MEDICATIONS: 1. Atorvastatin 20 mg daily. 2. Aspirin 81 mg daily. 3. Plavix 75 mg daily. 4. Lisinopril 5 mg daily. 5. Metoprolol 12.5 mg b.i.d. REVIEW OF SYSTEMS: Negative for 10 out of 14 systems reviewed, unless otherwise mentioned above in the HPI. SOCIAL HISTORY: No alcohol, tobacco or illicit drug use. FAMILY HISTORY: Negative for any sudden cardiac . PHYSICAL EXAMINATION: VITAL SIGNS: Afebrile, 92, 16, 124/70, 100% on room air. GENERAL: He is alert and oriented, in no acute distress. HEAD AND NECK: Unremarkable. CARDIAC: Regular rate and rhythm without any murmurs, rubs or gallops. LUNGS: Clear to auscultation bilaterally. ABDOMEN: Soft, nontender, nondistended. EXTREMITIES: Without any clubbing, cyanosis or edema. 2+ radial and dorsalis pedis pulses. NEUROLOGIC: No focal deficits. MUSCULOSKELETAL: No trauma. DIAGNOSTIC STUDIES: Hemoglobin and platelets are within normal limits. Biomarkers are negative x 3. LDL is at goal 59 and HDL at 72. Chest x-ray is unremarkable. EKG is unremarkable. IMPRESSION: 1. Atypical chest pain in a patient with known coronary artery disease. 2. Dyslipidemia. 3. Hypertension, well controlled. RECOMMENDATIONS: I had a long discussion with the patient in regards to his chest discomfort and various approaches of treatment. He is low risk in nature given the lack of any significant biomarker elevation or EKG changes. We discussed continued monitoring with outpatient followup or stress testing. The patient will pursue stress testing at this time. Plan for a treadmill myocardial perfusion study in the morning, n.p.o. at midnight. Thank you for this consultation. ARTURO RODRÍGUEZ MD DR: SHAKA/nola JOB#: [id number] / [id number]
[2017-07-14 19:30] VITALS: BP 123/63
[2017-07-14] MEDS: LATANOPROST 0.005% OPHTH SOLUTION 2.5ML BOTTLE. OU SCH (21:00)
[2017-07-14] MEDS: ATORVASTATIN CALCIUM 20 MG TABLET PO SCH (22:34)
[2017-07-14 23:58] VITALS: BP 108/60
[2017-07-15 03:12] VITALS: BP 114/65
[2017-07-15 07:00] VITALS: BP 116/65
[2017-07-15] MEDS: PANTOPRAZOLE 40 MG TABLET.DR. PO SCH (07:30)
[2017-07-15] MEDS: CLOPIDOGREL BISULFATE 75 MG TABLET PO SCH (08:00)
[2017-07-15] MEDS: ASPIRIN ENTERIC COATED 81 MG TABLET.DR. PO SCH (10:59)
[2017-07-15] MEDS: TAMSULOSIN 0.4 MG CAP.ER.24H. PO SCH (10:59)
[2017-07-15] MEDS: METOPROLOL TART IMMED RELEASE 25 MG TABLET. PO SCH (10:59)
[2017-07-15] MEDS: MULTIVITAMIN with MINERAL TABLET. PO SCH (11:00)
[2017-07-15] MEDS: CHOLECALCIFEROL (VITAMIN D3) 1,000 UNIT TABLET PO SCH (11:00)
[2017-07-15] MEDS: FINASTERIDE 5 MG TABLET. PO SCH (11:00)
[2017-07-15] MEDS: LISINOPRIL 5 MG TABLET. PO SCH (11:00)
[2017-07-15] MEDS: DEXAMETHASONE 0.1% OPHTH SOLUTION 5ML BOTTLE. OU SCH (11:01)
[2017-07-15] MEDS: BRIMONIDINE 0.2% OPHTH SOLUTION 5ML BOTTLE. OU SCH (11:01)
[2017-07-15] MEDS: TIMOLOL 0.5% OPHTH SOLUTION 5ML BOTTLE. OU SCH (11:01)
[2017-07-15] MEDS: DORZOLAMIDE 2% OPHTH SOLUTION 10ML BOTTLE. OU SCH (11:01)
--- NOTE | 2017-07-15 12:08 | RAD ---
APPROVED REPORT Test Type: Exercise Stress Nurse/Tech: Taniya Panchal R.N. Test Indications: chest pain Cardiac History: stents in 2016, Hypertension Medications: See Electronic Medical Record Medical History: See Electronic Medical Record Resting ECG: s. [id number] Resting Heart Rate: 56 bpm Resting Blood Pressure: 133/66mmHg Pretest Chest Pain: Atypical angina Nurse/Tech Notes S1S2, lungs sound clear Consent: The procedure was explained to the patient in lay terms. Informed consent was witnessed. Forest eout was entered into [employer]. History and Stress Test performed by Taniya Panchal R.N. Stress Symptoms states the chest throbbing is at a 2 which has not changed since he came to [facility]. POST EXERCISE Reason for Termination: Reached target heart rate Target HR: 121 Max HR: 132 bpm Exercise duration: 6 min., 15 sec min:sec, 3 Stage Max Blood Pressure: 171/57mmHg Blood Pressure response to exercise: Normal blood pressure response during stress. Chest Pain: Yes. cont. at rate of 2 Arrhythmia: No. ST Change: No. INTERPRETATION Stress EKG Conclusion: No stress induced EKG changes to suggest ischemia. Imaging Protocol IMAGE PROTOCOL: Rest Tc-99m/stress Tc-99m 1 day Rest: Stress: Viability: Radiopharm.Tc99m [id number] Sestamibi Dose11.6mCi 32.6mCi Duration 15min. 10min. Img Date 07/15/2017 07/15/2017 Inj-Img Roxk11mel. 60min. Post-Injection Exercise: 1 minute Rest Admin Site:IV - Right HandAdministrator:KYARA Jj Stress Admin Site: IV - Right HandAdministrator: KYARA Jj STRESS DATA End Diast. Vol.72.0mlAv. Heart Rate70.0bpm End Syst. Vol.21.0mlCO Index BSA0.0L/min Myocardial Lold424.0gEject. Jqypslgo84.0% Stress Rates Pk. Fill Rate2.58EDV/secLVtime Pk. Fill 156.53msec Pk. Empty Rate4.00ESV/secLVtime Pk. Nzpgd589.64msec 1/3 Pk. 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 Wall Motion Grossly normal. EF > 70%. LV Perf. Quant 17 Seg. SSS9.00 17 Seg. SRS6.00 17 Seg. SDS3.00 Stress Defect Extent (% LAD)34.40Rest Defect Extent (% LAD)23.10Rev. Defect Extent (% LAD)10.00 Stress Defect Extent (% LCX) 3.80Rest Defect Extent (% LCX)5.00Rev. Defect Extent (% LCX)0.00 Stress Defect Extent (% RCA)10.00Rest Defect Extent (% RCA)8.90Rev. Defect Extent (% RCA)0.00 Stress Defect Extent (% ABUNDIO)22.80Rest Defect Extent (% ABUNDIO)15.40Rev. Defect Extent (% ABUNDIO)6.10 Other Information Quality:Good Risk Assessment: Moderate Risk Conclusion 1. No stress induced EKG changes to suggest ischemia. Good exercise capacity with 10.0 Mets on a Bruc e Protocol 2. Fixed apical perfusion defect as noted above. 3. Normal EF at > 70% 4. Moderate risk for future CV events.
[2017-07-15 14:00] VITALS: BP 137/80
== END 2017-07-15 14:55 | disposition home or self-care (01) | DRG 206 ==
LOC: ER 17:52 → 6 SOUTH 18:24
PROVIDERS: ADMIT Internal Medicine; ATTEND Internal Medicine
DX: M94.0 Chondrocostal junction syndrome [Tietze] (principal); E78.5 Hyperlipidemia, unspecified; I25.10 Atherosclerotic heart disease of native coronary artery without angina pectoris; R74.8 Abnormal levels of other serum enzymes; N40.0 Benign prostatic hyperplasia without lower urinary tract symptoms; Z82.49 Family history of ischemic heart disease and other diseases of the circulatory system; Z95.5 Presence of coronary angioplasty implant and graft; I12.9 Hypertensive chronic kidney disease with stage 1 through stage 4 chronic kidney disease, or unspecified chronic kidney disease; N18.2 Chronic kidney disease, stage 2 (mild)
CPT/HCPCS: 36415; 71010; 78452; 80048; 80053; 80061; 83690; 83880; 84484; 85025; 85610; 85730; 93005; 93017; 96374; 96376; A9500; J2405; 97530; 99285-25

== ENCOUNTER 2018-10-11 14:14 | Inpatient (IN) | payer MEDICARE ==
[~2018-10-11] VITALS: Ht 182.9 cm; Wt 75.5 kg
[~2018-10-11 14:14] MED LIST changes: +CHOL500021 PO; +CLOP75TA PO; -DORZ10DR3 EACHEYE; +DORZ10DR6 EACHEYE; +MULT1TAB52 PO; +PANT20TA2 PO; +PRED5DRO16 EACHEYE; +SUCR1TAB35 PO
[2018-10-11] MEDS ORDERED: ASPIRIN 325 MG TABLET PO ONE (14:30)
[2018-10-11 14:37] LABS: BASO % 1 % (0-3); EOS # 0.1 x10^3/uL (0.0-0.7); EOS % 2 % (0-3); HEMATOCRIT 38.5 % (39.0-53.0); HEMOGLOBIN 12.5 g/dL (13.0-17.5); LYMPH # 0.9 x10^3/uL (1.0-4.8); LYMPH % 17 % (24-48); MEAN CORPUSCULAR HEMOGLOBIN 31 pg (25-35); MEAN CORPUSCULAR HGB CONC 32 g/dL (31-37); MEAN CORPUSCULAR VOLUME 96 fL (79-100); MONO # 0.6 x10^3/uL (0.0-1.1); MONO % 10 % (0-9); NEUT # 3.9 x10^3uL (1.8-7.7); NEUT % 70 % (31-73); PLATELET COUNT 233 x10^3/uL (140-400); RED BLOOD COUNT 4.03 x10^6/uL (4.30-5.70); WHITE BLOOD COUNT 5.5 x10^3/uL (4.0-11.0)
[2018-10-11 14:45] LABS: CALCIUM 9.3 mg/dL (8.5-10.1); CREATININE 1.2 mg/dL (0.7-1.3); GFR 70.9; POTASSIUM 3.7 mmol/L (3.5-5.1)
--- NOTE | 2018-10-11 14:48 | PHYS DOC ---
Past Medical History Past Medical History: High Cholesterol, Heart Disease, Hypertension, Other Additional Past Medical Histor: ENLARGED PROSTATE (DANIEL GARCIA APRN) Past Surgical History: Other Additional Past Surgical Histo: Cardiac STENTS x2. (DANIEL GARCIA APRN) Alcohol Use: None Drug Use: None (DANIEL GARCIA APRN) Adult General Chief Complaint Chief Complaint: CHEST PAIN HPI HPI Patient is a 78 year old male who presents with mid chest pressure for the last 4 days that comes and goes. Patient states that when he was shoveling snow days ago he feels that it triggered this pressure. Patient denies shortness of air, nausea, vomiting, fever. Patient has a history of stents [address] Piña, hypertension, high cholesterol, heart disease, enlarged prostate. Patient states he is also concerned that he's been having worsening extremity edema in his ankles. (DANIEL GARCIA APRN) Review of Systems Review of Systems Constitutional: Denies fever or chills [] Eyes: Denies change in visual acuity, redness, or eye pain [] HENT: Denies nasal congestion or sore throat [] Respiratory: Denies cough or shortness of breath [] Cardiovascular: mid chest pressure GI: Denies abdominal pain, nausea, vomiting, bloody stools or diarrhea [] : Denies dysuria or hematuria [] Musculoskeletal: Denies back pain or joint pain [] Integument: Denies rash or skin lesions [] Neurologic: Denies headache, focal weakness or sensory changes [] All other systems were reviewed and found to be within normal limits, except as documented in this note. (DANIEL GARCIA APRN) Current Medications Current Medications Current Medications Medications (Trade) Dose Ordered Sig/[facility] Start Time Stop Time Status Last Admin Dose Admin Aspirin (Denise Aspirin) 325 mg 1X ONCE 10/11/18 14:30 10/11/18 14:31 DC 10/11/18 14:49 325 MG Azithromycin 250 ml @ 250 mls/hr 1X ONCE 10/11/18 15:30 10/11/18 16:29 UNV Levofloxacin/ Dextrose (Levaquin Per Pharmacy) 1 each PRN DAILY PRN 10/11/18 15:30 UNV Nitroglycerin (Nitrostat) 0.4 mg PRN Q5MIN PRN 10/11/18 14:45 10/11/18 14:59 0.4 MG (ASHLEY ASKEW MD) Allergies Allergies Allergies Coded Allergies Type Severity Reaction Last Updated Verified No Known Drug Allergies 06/15/16 No (ASHLEY ASKEW MD) Physical Exam Physical Exam Constitutional: Well developed, well nourished, no acute distress, non-toxic appearance. [] HENT: Normocephalic, atraumatic, bilateral external ears normal, oropharynx moist, no oral exudates, nose normal. [] Eyes: PERRLA, EOMI, conjunctiva normal, no discharge. [] Neck: Normal range of motion, no tenderness, supple, no stridor. [] Cardiovascular:Heart rate regular rhythm, no murmur [] Lungs & Thorax: Bilateral breath sounds clear to auscultation [] Abdomen: Bowel sounds normal, soft, no tenderness, no masses, no pulsatile masses. [] Skin: Warm, dry, no erythema, no rash. [] Back: No tenderness, no CVA tenderness. [] Extremities: No tenderness, no cyanosis, no clubbing, ROM intact, Bilateral pedal 2+ edema. [] Neurologic: Alert and oriented X 3, normal motor function, normal sensory function, no focal deficits noted. [] Psychologic: Affect normal, judgement normal, mood normal. [] (DANIEL GARCIA APRN) Current Patient Data Vital Signs Vital Signs Date Time Temp Pulse Resp B/P (MAP) Pulse Ox O2 Delivery O2 Flow Rate FiO2 10/11/18 15:30 62 14 115/66 (82) 96 Room Air 10/11/18 14:16 98.7 98.7 (ASHLEY ASKEW MD) Lab Values Laboratory Tests Test 10/11/18 14:25 10/11/18 15:15 White Blood Count 5.5 x10^3/uL (4.0-11.0) Red Blood Count 4.03 x10^6/uL (4.30-5.70) L Hemoglobin 12.5 g/dL (13.0-17.5) L Hematocrit 38.5 % (39.0-53.0) L Mean Corpuscular Volume 96 fL (79-100) Mean Corpuscular Hemoglobin 31 pg (25-35) Mean Corpuscular Hemoglobin Concent 32 g/dL (31-37) Red Cell Distribution Width 14.0 % (11.5-14.5) Platelet Count 233 x10^3/uL (140-400) Neutrophils (%) (Auto) 70 % (31-73) Lymphocytes (%) (Auto) 17 % (24-48) L Monocytes (%) (Auto) 10 % (0-9) H Eosinophils (%) (Auto) 2 % (0-3) Basophils (%) (Auto) 1 % (0-3) Neutrophils # (Auto) 3.9 x10^3uL (1.8-7.7) Lymphocytes # (Auto) 0.9 x10^3/uL (1.0-4.8) L Monocytes # (Auto) 0.6 x10^3/uL (0.0-1.1) Eosinophils # (Auto) 0.1 x10^3/uL (0.0-0.7) Basophils # (Auto) 0.0 x10^3/uL (0.0-0.2) Sodium Level 142 mmol/L (136-145) Potassium Level 3.7 mmol/L (3.5-5.1) Chloride Level 105 mmol/L (98-107) Carbon Dioxide Level 27 mmol/L (21-32) Anion Gap 10 (6-14) Blood Urea Nitrogen 10 mg/dL (8-26) Creatinine 1.2 mg/dL (0.7-1.3) Estimated GFR (Cockcroft-Gault) 70.9 BUN/Creatinine Ratio 8 (6-20) Glucose Level 106 mg/dL (70-99) H Calcium Level 9.3 mg/dL (8.5-10.1) Total Bilirubin 0.9 mg/dL (0.2-1.0) Aspartate Amino Transferase (AST) 26 U/L (15-37) Alanine Aminotransferase (ALT) 35 U/L (16-63) Alkaline Phosphatase 117 U/L (46-116) H Troponin I Quantitative < 0.017 ng/mL (0.000-0.055) LA-Rbv-J-Type Natriuretic Peptide 305 pg/mL (0-449) Total Protein 7.8 g/dL (6.4-8.2) Albumin 3.7 g/dL (3.4-5.0) Albumin/Globulin Ratio 0.9 (1.0-1.7) L Urine Collection Type Void Urine Color Yellow Urine Clarity Clear Urine pH 7.5 Urine Specific Harvey <=1.005 Urine Protein Negative mg/dL (NEG-TRACE) Urine Glucose (UA) Negative mg/dL (NEG) Urine Ketones (Stick) Negative mg/dL (NEG) Urine Blood Negative (NEG) Urine Nitrite Negative (NEG) Urine Bilirubin Negative (NEG) Urine Urobilinogen Dipstick 0.2 mg/dL (0.2 mg/dL) Urine Leukocyte Esterase Negative (NEG) Urine RBC 0 /HPF (0-2) Urine WBC Rare /HPF (0-4) Urine Squamous Epithelial Cells Few /LPF Urine Bacteria 0 /HPF (0-FEW) Laboratory Tests 10/11/18 14:25 Laboratory Tests 10/11/18 14:25 (ASHLEY ASKEW MD) EKG EKG Sinus Rhythm and no SEMI Interpretation Time: [address] Askew (DANIEL GARCIA APRN) Radiology/Procedures Radiology/Procedures [] (DANIEL GARCIA APRN) Impressions: [facility] [address] [place] [address] IMAGING REPORT Signed PATIENT: KATHLEEN LUU ACCOUNT: [id number] : 1940 LOCATION: ER AGE: 78 SEX: M EXAM STATUS: PRE ER ORD. PHYSICIAN: DANIEL GARCIA APRN REASON: chest pain PROCEDURE: PORTABLE CHEST 1V Indication:LEFT SIDED CHEST PAIN X5 DAYS. RADIATES DOWN LEFT ARM TECHNIQUE:Portable AP chest X-ray COMPARISON:07/13/2017 FINDINGS: Heart is normal in size. Blunting of the left costophrenic angle is seen with silhouetting of the left hemidiaphragm. Rest of the lungs are clear. No pneumothorax. Visualized bony thorax within normal limits. IMPRESSION: Findings suggests consolidation which may be from atelectasis or pneumonia in the left lung base and small pleural effusion. Electronically signed by: Arnulfo Carmona DO (10/11/2018 2:45 PM) [facility] DICTATED and SIGNED BY: ARNULFO CARMONA DO DATE: 10/11/18 1445 (DANIEL GARCIA APRN) Course & Med Decision Making Course & Med Decision Making Patient is a 78 year old male who presents with mid chest pressure for the last 4 days that comes and goes. Patient states that when he was shoveling snow days ago he feels that it triggered this pressure. Patient denies shortness of air, nausea, vomiting, fever. Patient has a history of stents [address] Piña, hypertension, high cholesterol, heart disease, enlarged prostate. Patient states he is also concerned that he's been having worsening extremity edema in his ankles. Patient has bilateral extremity edema that is 2+ nonpitting. Heart rate regular. Lungs are clear to auscultation all lobes. Abdomen soft and nontender. Chest pain is not reproducible with palpation. Patient speaks in full clear sentences. He denies any dizziness or numbness and tingling. PERRLA. Patient states nothing makes the pain worse or better. Patient states the pressure has been coming and going the last 4 days that seems to be staying longer the last day. Patient is currently rating his discomfort or his pressure at a 5 out of 10. EKG shows sinus rhythm and no STEMI. Heart score 5. Patient is told that more likely he will be admitted to the hospital for observation for his chest pain given his history and his current symptoms. Patient is agreeable to this. Chest xray shows Findings suggests consolidation which may be from atelectasis or pneumonia in the left lung base and small pleural effusion. Patient did also receive 2 nitros which relieved his pain/ pressure. Patient is started on doxycycline and Rocephin. Patient is admitted by Dr. Pinto. (DANIEL GARCIA APRN) Course & Med Decision Making Staff Physician Addendum: I was working in the ER during the course of this patient's visit. I was available for consultation as needed, but I was not directly involved in the care of this patient. (ASHLEY ASKEW MD) Dragon Disclaimer Dragon Disclaimer This electronic medical record was generated, in whole or in part, using a voice recognition dictation system. (DANIEL GARCIA APRN) Departure Departure Impression: Primary Impression: Chest pain Additional Impression: Pneumonia Disposition: 09 ADMITTED INPATIENT Admitting Physician: Other (BAFUS,DANIEL M [employer]) Condition: STABLE Referrals: LILLIG,ROSE P MD (PCP) Problem Qualifiers Primary Impression: Chest pain Chest pain type: unspecified Qualified Codes: R07.9 - Chest pain, unspecified Additional Impression: Pneumonia Pneumonia type: due to unspecified organism Laterality: left Lung location : lower lobe of lung Qualified Codes: J18.1 - Lobar pneumonia, unspecified organism DANIEL GARCIA APRN Oct 11, 2018 14:48 ASHLEY ASKEW MD Oct 13, 2018 00:37
[2018-10-11 14:51] LABS: ALBUMIN 3.7 g/dL (3.4-5.0); ALBUMIN/GLOBULIN RATIO 0.9 (1.0-1.7); TOTAL BILIRUBIN 0.9 mg/dL (0.2-1.0); TOTAL PROTEIN 7.8 g/dL (6.4-8.2)
[2018-10-11] MEDS: NITROGLYCERIN SUBLINGUAL 0.4 MG BOTTLE OF 25. SL PRN ×2 (14:52→14:59)
[2018-10-11 15:23] LABS: BILIRUBIN,URINE NEGATIVE (NEG); CLARITY,URINE CLEAR; COLOR,URINE YELLOW; NITRITE,URINE NEGATIVE (NEG); PH,URINE 7.5; PROTEIN,URINE NEGATIVE (NEG-TRACE); UROBILINOGEN,URINE 0.2 mg/dL (0.2 mg/dL)
[2018-10-11 15:30] LABS: BACTERIA,URINE 0 /HPF (0-FEW); RBC,URINE 0 /HPF (0-2); SQUAMOUS EPITHELIAL CELL,UR FEW /LPF; WBC,URINE RARE /HPF (0-4)
[2018-10-11] MEDS ORDERED: levOFLOXacin PER PHARMACY. MC PRN (15:30)
[2018-10-11] MEDS ORDERED: AZITHRMYCN 500MG IVPB FOR OMNI 250 ML IV ONE (15:30)
[2018-10-11] MEDS ORDERED: DOXYCYCLINE HYCLATE 100 MG in IV DEXTROSE 5% 100ML 100 ML IV ONE (16:00)
[2018-10-11] MEDS ORDERED: cefTRIAXone IV Push 1 GM VIAL. IVP ONE (16:00)
--- NOTE | 2018-10-11 16:09 | PDOC1 ---
History and Physical Date of Admission Date of Admission DATE: 10/11/18 TIME: 16:07 Identification/Chief Complaint Chief Complaint Chest pain Source Source: Chart review, Patient History of Present Illness History of Present Illness 78 year old male w/ PMHx HTN, CAD, GERD, PUD, HLD, BPH who presents with mid chest pressure for the last 4 days that comes and goes. Patient states that when he was shoveling snow days ago he feels that it triggered this pressure. Patient denies shortness of air, nausea, vomiting, fever. Patient has a history of stents [address] Piña. Patient states he is also concerned that he's been having worsening extremity edema in his ankles, R>L. BNP 305 In ED found with negative troponin, EKG. CXR revealed a LLL infiltrate and based on his symptoms and mild renal insufficiency was called for inpatient admission for community acquired pneumonia Past Medical History Cardiovascular: CAD, HTN Pulmonary: No pertinent hx GI: No pertinent hx Heme/Onc: No pertinent hx Hepatobiliary: No pertinent hx Psych: No pertinent hx Renal/: Benign prostatic enlarg. Past Surgical History Past Surgical History: Other, No pertinent history Family History Family History: No Significant, Hypertension Social History Smoke: No ALCOHOL: none Drugs: None Current Problem List Problem List Problems Medical Problems: (1) Chest pain Status: Acute (2) Pneumonia Status: Acute Current Medications Current Medications Current Medications Aspirin (Denise Aspirin) 325 mg 1X ONCE PO Last administered on 10/11/18at 14:49 ; Start 10/11/18 at 14:30; Stop 10/11/18 at 14:31; Status DC Nitroglycerin (Nitrostat) 0.4 mg PRN Q5MIN PRN SL CHEST PAIN Last administered on 10/11/18at 14:59; Start 10/11/18 at 14:45 Levofloxacin/ Dextrose (Levaquin Per Pharmacy) 1 each PRN DAILY PRN MC SEE COMMENTS; Start 10/11/18 at 15:30; Status UNV Azithromycin 250 ml @ 250 mls/hr 1X ONCE IV ; Start 10/11/18 at 15:30; Stop at 16:29; Status UNV Levofloxacin/ Dextrose 100 ml @ 100 mls/hr 1X ONCE IV ; Start 10/11/18 at 15: 45; Stop 10/11/18 at 16:44; Status Cancel Doxycycline Hyclate 100 mg/ Dextrose 100 ml @ 50 mls/hr 1X ONCE IV ; Start at 16:00; Stop 10/11/18 at 17:59; Status UNV Ceftriaxone Sodium (Rocephin) 1 gm 1X ONCE IVP ; Start 10/11/18 at 16:00; Stop 10/11/18 at 16:01; Status UNV Active Scripts Active Protonix (Pantoprazole Sodium) 20 Mg Tablet.dr 2 Tab PO DAILY Carafate (Sucralfate) 1 Gm Tablet 1 Tab PO QID Metoprolol Tartrate 25 Mg Tablet 12.5 Mg PO BID Lisinopril 5 Mg Tablet 5 Mg PO DAILY Atorvastatin Calcium 20 Mg Tablet 20 Mg PO QHS Aspirin Ec (Aspirin) 81 Mg Tablet.dr 81 Mg PO DAILYWBKFT Reported Prednisolone Acetate 5 Ml Drops.susp 1 Drop EACHEYE Q2HR Multivitamins (Multivitamin) 1 Each Tablet 1 Tab PO DAILY D3-50 (Cholecalciferol (Vitamin D3)) 50,000 Unit Capsule 50,000 Unit PO DAILY Clopidogrel (Clopidogrel Bisulfate) 75 Mg Tablet 1 Tab PO DAILY Latanoprost 2.5 Ml Drops 1 Drop EACHEYE QHS Dorzolamide Hcl 10 Ml Drops 1 Drop EACHEYE TID Tamsulosin Hcl 0.4 Mg Cap.er.24h 0.4 Mg PO BID Finasteride 5 Mg Tablet 5 Mg PO DAILY Combigan Eye Drops (Brimonidine Tartrate/Timolol) 5 Ml Drops 5 Ml OP BID Allergies Allergies: Coded Allergies: No Known Drug Allergies (Unverified , 06/15/16) ROS General: YES: Fatigue, Malaise; No: Chills, Night Sweats, Appetite, Other PSYCHOLOGICAL ROS: No: Anxiety, Behavioral Disorder, Concentration difficultie , Decreased libido, Depression, Disorientation, Hallucinations, Hostility, Irritablity, Memory difficulties, Mood Swings, Obsessive thoughts, Physical abuse, Sexual abuse, Sleep disturbances, Suicidal ideation, Other Eyes: No Blurry vision, No Decreased vision, No Double vision, No Dry eyes, No Excessive tearing, No Eye Pain, No Itchy Eyes, No Loss of vision, No Photophobia , No Scotomata, No Uses contacts, No Uses glasses, No Other HEENT: No: Heacaches, Visual Changes, Hearing change, Nasal congestion, Nasal discharge, Oral lesions, Sinus pain, Sore Throat, Epistaxis, Sneezing, Snoring, Tinnitus, Vertigo, Vocal changes, Other ALLERGY AND IMMUNOLOGY: No: Hives, Insect Bite Sensitivity, Itchy/Watery Eyes, Nasal Congestion, Post Nasal Drip, Seasonal Allergies, Other Hematological and Lymphatic: No: Bleeding Problems, Blood Clots, Blood Transfusions, Brusing, Night Sweats, Pallor, Swollen Lymph Nodes, Other ENDOCRINE: No: Breast Changes, Galactorrhea, Hair Pattern Changes, Hot Flashes , Malaise/lethargy, Mood Swings, Palpitations, Polydipsia/polyuria, Skin Changes , Temperature Intolerance, Unexpected Weight Changes, Other Breast: No New/Changing Breast Lumps, No Nipple changes, No Nipple discharge, No Other Respiratory: YES: Cough, Shortness of breath; No: Hemoptysis, Orthopnea, Pleuritic Pain, SOB with excertion, Sputum Changes , Stridor, Tachypnea, Wheezing, Other Cardiovascular: yes Chest Pain; No Palpitations, No Orthopnea, No Paroxysmal Noc. Dyspnea, No Edema, No Lt Headedness, No Other Gastrointestinal: Yes Nausea; No Vomiting, No Abdominal Pain, No Diarrhea, No Constipation, No Melena, No Hematochezia, No Other Genitourinary: No Dysuria, No Frequency, No Incontinence, No Hematuria, No Retention, No Discharge, No Urgency, No Pain, No Flank Pain, No Other, No , No , No , No , No , No , No Musculoskeletal: Yes Muscle Pain (left arm); No Gait Disturbance, No Joint Pain, No Joint Stiffness, No Joint Swelling, No Muscular Weakness, No Pain In:, No Swelling In:, No Other Neurological: No Behavorial Changes, No Bowel/Bladder ControlChng, No Confusion , No Dizziness, No Gait Disturbance, No Headaches, No Impaired Coord/balance, No Memory Loss, No Numbness/Tingling, No Seizures, No Speech Problems, No Tremors, No Visual Changes, No Weakness, No Other Skin: No Dry Skin, No Eczema, No Hair Changes, No Lumps, No Mole Changes, No Mottling, No Nail Changes, No Pruritus, No Rash, No Skin Lesion Changes, No Other, No Acne Physical Exam General: Alert, Oriented X3, Cooperative, No acute distress HEENT: Atraumatic, PERRLA, EOMI, Mucous membr. moist/pink Lungs: Other (Bibasilar crackles) Abdomen: Normal bowel sounds, Soft, No tenderness, No hepatosplenomegaly, No masses Rectal Exam: not examined Extremities: No clubbing, No cyanosis, Normal pulses, No tenderness/swelling, Other (1+ edema left ankle, 2+ edema right ankle) Skin: No rashes, No breakdown, No significant lesion Neuro: Normal gait, Normal speech, Strength at 5/5 X4 ext, Normal tone, Sensation intact, Cranial nerves 3-12 NL, Reflexes 2+ Vitals Vitals Vital Signs Date Time Temp Pulse Resp B/P (MAP) Pulse Ox O2 Delivery O2 Flow Rate FiO2 10/11/18 14:59 77 132/68 10/11/18 14:16 98.7 16 96 Room Air 98.7 Labs Labs Laboratory Tests Test 10/11/18 14:25 10/11/18 15:15 White Blood Count 5.5 x10^3/uL (4.0-11.0) Red Blood Count 4.03 x10^6/uL (4.30-5.70) Hemoglobin 12.5 g/dL (13.0-17.5) Hematocrit 38.5 % (39.0-53.0) Mean Corpuscular Volume 96 fL (79-100) Mean Corpuscular Hemoglobin 31 pg (25-35) Mean Corpuscular Hemoglobin Concent 32 g/dL (31-37) Red Cell Distribution Width 14.0 % (11.5-14.5) Platelet Count 233 x10^3/uL (140-400) Neutrophils (%) (Auto) 70 % (31-73) Lymphocytes (%) (Auto) 17 % (24-48) Monocytes (%) (Auto) 10 % (0-9) Eosinophils (%) (Auto) 2 % (0-3) Basophils (%) (Auto) 1 % (0-3) Neutrophils # (Auto) 3.9 x10^3uL (1.8-7.7) Lymphocytes # (Auto) 0.9 x10^3/uL (1.0-4.8) Monocytes # (Auto) 0.6 x10^3/uL (0.0-1.1) Eosinophils # (Auto) 0.1 x10^3/uL (0.0-0.7) Basophils # (Auto) 0.0 x10^3/uL (0.0-0.2) Sodium Level 142 mmol/L (136-145) Potassium Level 3.7 mmol/L (3.5-5.1) Chloride Level 105 mmol/L (98-107) Carbon Dioxide Level 27 mmol/L (21-32) Anion Gap 10 (6-14) Blood Urea Nitrogen 10 mg/dL (8-26) Creatinine 1.2 mg/dL (0.7-1.3) Estimated GFR (Cockcroft-Gault) 70.9 BUN/Creatinine Ratio 8 (6-20) Glucose Level 106 mg/dL (70-99) Calcium Level 9.3 mg/dL (8.5-10.1) Total Bilirubin 0.9 mg/dL (0.2-1.0) Aspartate Amino Transf (AST/SGOT) 26 U/L (15-37) Alanine Aminotransferase (ALT/SGPT) 35 U/L (16-63) Alkaline Phosphatase 117 U/L (46-116) Troponin I Quantitative < 0.017 ng/mL (0.000-0.055) NB-Ypp-F-Type Natriuretic Peptide 305 pg/mL (0-449) Total Protein 7.8 g/dL (6.4-8.2) Albumin 3.7 g/dL (3.4-5.0) Albumin/Globulin Ratio 0.9 (1.0-1.7) Urine Collection Type Void Urine Color Yellow Urine Clarity Clear Urine pH 7.5 Urine Specific Bynum <=1.005 Urine Protein Negative mg/dL (NEG-TRACE) Urine Glucose (UA) Negative mg/dL (NEG) Urine Ketones (Stick) Negative mg/dL (NEG) Urine Blood Negative (NEG) Urine Nitrite Negative (NEG) Urine Bilirubin Negative (NEG) Urine Urobilinogen Dipstick 0.2 mg/dL (0.2 mg/dL) Urine Leukocyte Esterase Negative (NEG) Urine RBC 0 /HPF (0-2) Urine WBC Rare /HPF (0-4) Urine Squamous Epithelial Cells Few /LPF Urine Bacteria 0 /HPF (0-FEW) Laboratory Tests Test 10/11/18 14:25 10/11/18 15:15 White Blood Count 5.5 x10^3/uL (4.0-11.0) Red Blood Count 4.03 x10^6/uL (4.30-5.70) Hemoglobin 12.5 g/dL (13.0-17.5) Hematocrit 38.5 % (39.0-53.0) Mean Corpuscular Volume 96 fL (79-100) Mean Corpuscular Hemoglobin 31 pg (25-35) Mean Corpuscular Hemoglobin Concent 32 g/dL (31-37) Red Cell Distribution Width 14.0 % (11.5-14.5) Platelet Count 233 x10^3/uL (140-400) Neutrophils (%) (Auto) 70 % (31-73) Lymphocytes (%) (Auto) 17 % (24-48) Monocytes (%) (Auto) 10 % (0-9) Eosinophils (%) (Auto) 2 % (0-3) Basophils (%) (Auto) 1 % (0-3) Neutrophils # (Auto) 3.9 x10^3uL (1.8-7.7) Lymphocytes # (Auto) 0.9 x10^3/uL (1.0-4.8) Monocytes # (Auto) 0.6 x10^3/uL (0.0-1.1) Eosinophils # (Auto) 0.1 x10^3/uL (0.0-0.7) Basophils # (Auto) 0.0 x10^3/uL (0.0-0.2) Sodium Level 142 mmol/L (136-145) Potassium Level 3.7 mmol/L (3.5-5.1) Chloride Level 105 mmol/L (98-107) Carbon Dioxide Level 27 mmol/L (21-32) Anion Gap 10 (6-14) Blood Urea Nitrogen 10 mg/dL (8-26) Creatinine 1.2 mg/dL (0.7-1.3) Estimated GFR (Cockcroft-Gault) 70.9 BUN/Creatinine Ratio 8 (6-20) Glucose Level 106 mg/dL (70-99) Calcium Level 9.3 mg/dL (8.5-10.1) Total Bilirubin 0.9 mg/dL (0.2-1.0) Aspartate Amino Transf (AST/SGOT) 26 U/L (15-37) Alanine Aminotransferase (ALT/SGPT) 35 U/L (16-63) Alkaline Phosphatase 117 U/L (46-116) Troponin I Quantitative < 0.017 ng/mL (0.000-0.055) VY-Mtw-S-Type Natriuretic Peptide 305 pg/mL (0-449) Total Protein 7.8 g/dL (6.4-8.2) Albumin 3.7 g/dL (3.4-5.0) Albumin/Globulin Ratio 0.9 (1.0-1.7) Urine Collection Type Void Urine Color Yellow Urine Clarity Clear Urine pH 7.5 Urine Specific Bynum <=1.005 Urine Protein Negative mg/dL (NEG-TRACE) Urine Glucose (UA) Negative mg/dL (NEG) Urine Ketones (Stick) Negative mg/dL (NEG) Urine Blood Negative (NEG) Urine Nitrite Negative (NEG) Urine Bilirubin Negative (NEG) Urine Urobilinogen Dipstick 0.2 mg/dL (0.2 mg/dL) Urine Leukocyte Esterase Negative (NEG) Urine RBC 0 /HPF (0-2) Urine WBC Rare /HPF (0-4) Urine Squamous Epithelial Cells Few /LPF Urine Bacteria 0 /HPF (0-FEW) Images Images CXR - Findings suggests consolidation which may be from atelectasis or pneumonia in the left lung base and small pleural effusion. VTE Prophylaxis Ordered VTE Prophylaxis Devices: No VTE Pharmacological Prophylaxi: Yes Assessment/Plan Assessment/Plan A/P: Chest pain - could be 2/2 pneumonia on CXR, however his left arm pain and improvement with NTG and CAD history and cessation of plavix last year for PUD merit further w/u. Trend trops. cont NTG, ASA, consult cardiology LLL Pneumonia - treat as CAP with rocephin + doxy Bilateral LE swelling - particularly concerning with BNP of 305, which is normal for age > 74. Will get US of bilateral LE, more concern for DVT on right , though no provocation is in his history. Lovenox for now CAD - cont meds PUD - cont PPI, carafate. Stopped plavix previously for GI bleed HLD - cont statin FEN - Cardiac diet PPX - lovenox FULL CODE Inpatient for CAP with chest pain and leg swelling. RAIN DAMON MD Oct 11, 2018 16:09
[2018-10-11] MEDS ORDERED: ACETAMINOPHEN 325 MG TABLET. PO PRN (16:30)
[2018-10-11] MEDS ORDERED: fentaNYL PF VIAL 100 MCG/2 ML VIAL IV PRN (16:30)
[2018-10-11] MEDS ORDERED: ONDANSETRON PF 4 MG/2 ML VIAL. IV PRN (16:30)
[2018-10-11 19:45] VITALS: BP 132/71
[2018-10-11] MEDS: IPRATRPIUM/ALBUTEROL 0.5/2.5MG 3 ML NEBU. NEB SCH (20:00)
[2018-10-11] MEDS: NON FORMULARY ITEM (Prednisolone Acetate 1 DROP) EACHEYE SCH (22:00)
[2018-10-11] MEDS: SUCRALFATE 1 GM TABLET. PO SCH (22:58)
[2018-10-11] MEDS: TAMSULOSIN 0.4 MG CAP.ER.24H. PO SCH (22:58)
[2018-10-11] MEDS: LATANOPROST 0.005% OPHTH SOLUTION 2.5ML BOTTLE. OU SCH (23:00)
[2018-10-11] MEDS: DORZOLAMIDE 2% OPHTH SOLUTION 10ML BOTTLE. OU SCH (23:00)
[2018-10-11] MEDS: ENOXAPARIN 30 MG/0.3 ML SYRINGE. SQ SCH (23:00)
[2018-10-11 23:15] VITALS: BP 146/84
[2018-10-12] MEDS: NON FORMULARY ITEM (Prednisolone Acetate 1 DROP) EACHEYE SCH ×4 (02:00→05:51)
[2018-10-12 03:10] VITALS: BP 147/75
[2018-10-12 05:38] LABS: CALCIUM 9.1 mg/dL (8.5-10.1); CREATININE 1.2 mg/dL (0.7-1.3); GFR 70.9; POTASSIUM 3.7 mmol/L (3.5-5.1)
[2018-10-12 07:49] VITALS: BP 133/75
[2018-10-12] MEDS: IPRATRPIUM/ALBUTEROL 0.5/2.5MG 3 ML NEBU. NEB SCH ×3 (07:56→16:04)
--- NOTE | 2018-10-12 08:22 | RAD ---
Right lower extremity venous doppler ultrasound Indication:RIGHT LE PAIN AND SWELLING. Technique: Color Doppler, grayscale, and spectral waveform analysis is used to evaluate the right femoral and popliteal veins. Findings: No evidence of deep venous thrombosis. Normal response to augmentation, normal compressibility and normal phasicity is demonstrated. Visualized calf veins are patent. Impression: Negative for deep venous thrombosis Electronically signed by: Anuel Finch MD (10/12/2018 8:18 AM) [facility]
[2018-10-12] MEDS: cefTRIAXone IV Push 1 GM VIAL. IVP SCH (08:33)
[2018-10-12] MEDS: SUCRALFATE 1 GM TABLET. PO SCH ×4 (08:34→22:52)
[2018-10-12] MEDS: DOXYCYCLINE HYCLATE 100 MG in IV DEXTROSE 5% 100ML 100 ML IV SCH ×2 (08:34→22:59)
[2018-10-12] MEDS: ASPIRIN ENTERIC COATED 81 MG TABLET.DR. PO SCH (08:34)
[2018-10-12] MEDS: FINASTERIDE 5 MG TABLET. PO SCH (08:34)
[2018-10-12] MEDS: LISINOPRIL 5 MG TABLET. PO SCH (08:34)
[2018-10-12] MEDS: PANTOPRAZOLE 40 MG TABLET.DR. PO SCH (08:34)
[2018-10-12] MEDS: MULTIVITAMIN with MINERAL TABLET. PO SCH (08:34)
[2018-10-12] MEDS: TAMSULOSIN 0.4 MG CAP.ER.24H. PO SCH ×2 (08:34→22:52)
[2018-10-12] MEDS: CHOLECALCIFEROL (VITAMIN D3) 1,000 UNIT TABLET PO SCH (08:34)
[2018-10-12] MEDS: DORZOLAMIDE 2% OPHTH SOLUTION 10ML BOTTLE. OU SCH ×3 (08:35→22:53)
[2018-10-12] MEDS: DEXAMETHASONE 0.1% OPHTH SOLUTION 5ML BOTTLE. OU SCH ×4 (08:36→22:53)
[2018-10-12] MEDS: BRIMONIDINE 0.2% OPHTH SOLUTION 5ML BOTTLE. OU SCH ×2 (08:36→22:54)
[2018-10-12] MEDS: TIMOLOL 0.5% OPHTH SOLUTION 5ML BOTTLE. OU SCH ×2 (08:36→22:53)
[2018-10-12] MEDS ORDERED: NON FORMULARY ITEM (Brimonidine Tartrate/Timolol (Combigan Eye Drops) 5 ML) OP SCH (09:00)
--- NOTE | 2018-10-12 09:40 | PDOC2 ---
CONSULT Date of Consult Date of Consult DATE: 10/12/18 TIME: 09:31 Reason for Consult Reason for Consult: Chest pain Referring Physician Referring Physician: Dr. Pinto Identification/Chief Complaint Chief Complaint Chest pain Source Source: Chart review, Patient History of Present Illness Reason for Visit: 78-year-old male with history of coronary artery disease s/p PCI/JESUS to LAD/LCx in June 2016, usually followed by Dr. Piña presented complaining of retrosternal chest pressure radiating to the left arm mainly on exertion and relieved with rest. He noted this particularly when he was shoveling snow recently. He also complained of associated mild dyspnea but denied any orthopnea /PND, palpitations or syncope. Past Medical History Cardiovascular: CAD, HTN Pulmonary: No pertinent hx GI: No pertinent hx Heme/Onc: No pertinent hx Hepatobiliary: No pertinent hx Psych: No pertinent hx Renal/: Benign prostatic enlarg. Past Surgical History Past Surgical History: Other, No pertinent history Family History Family History: No Significant, Hypertension Social History No ALCOHOL: none Drugs: None Current Problem List Problem List Problems Medical Problems: (1) Chest pain Status: Acute (2) Pneumonia Status: Acute Current Medications Current Medications Current Medications Aspirin (Denise Aspirin) 325 mg 1X ONCE PO Last administered on 10/11/18at 14:49 ; Start 10/11/18 at 14:30; Stop 10/11/18 at 14:31; Status DC Nitroglycerin (Nitrostat) 0.4 mg PRN Q5MIN PRN SL CHEST PAIN Last administered on 10/11/18at 14:59; Start 10/11/18 at 14:45 Levofloxacin/ Dextrose (Levaquin Per Pharmacy) 1 each PRN DAILY PRN MC SEE COMMENTS; Start 10/11/18 at 15:30; Status UNV Azithromycin 250 ml @ 250 mls/hr 1X ONCE IV ; Start 10/11/18 at 15:30; Stop at 16:29; Status UNV Levofloxacin/ Dextrose 100 ml @ 100 mls/hr 1X ONCE IV ; Start 10/11/18 at 15: 45; Stop 10/11/18 at 16:44; Status Cancel Doxycycline Hyclate 100 mg/ Dextrose 100 ml @ 50 mls/hr 1X ONCE IV Last administered on 10/11/18at 16:37; Start 10/11/18 at 16:00; Stop 10/11/18 at 17:59 ; Status DC Ceftriaxone Sodium (Rocephin) 1 gm 1X ONCE IVP Last administered on 10/11/18at 16:33; Start 10/11/18 at 16:00; Stop 10/11/18 at 16:10; Status DC Ondansetron HCl (Zofran) 4 mg PRN Q8HRS PRN IV NAUSEA/VOMITING; Start 10/11/18 at 16:30; Stop 10/12/18 at 16:29 Fentanyl Citrate (Fentanyl 2ml Vial) 50 mcg PRN Q1HR PRN IV PAIN; Start at 16:30; Stop 10/12/18 at 16:29 Acetaminophen (Tylenol) 650 mg PRN Q4HRS PRN PO FEVER; Start 10/11/18 at 16:30 ; Stop 10/12/18 at 16:29 Albuterol/ Ipratropium (Duoneb) 3 ml RTQID NEB Last administered on 10/12/18at 07:56; Start 10/11/18 at 20:00; Stop 10/12/18 at 19:59 Aspirin (Ecotrin) 81 mg DAILYWBKFT PO Last administered on 10/12/18at 08:34; Start 10/12/18 at 08:00 Atorvastatin Calcium (Lipitor) 20 mg QHS PO ; Start 10/12/18 at 21:00 Dorzolamide HCl (Trusopt) 1 drop TID OU Last administered on 10/12/18at 08:35; Start 10/11/18 at 22:00 Finasteride (Proscar) 5 mg DAILY PO Last administered on 10/12/18at 08:34; Start 10/12/18 at 09:00 Tamsulosin HCl (Flomax) 0.4 mg BID PO Last administered on 10/12/18at 08:34; Start 10/11/18 at 21:30 Non-Formulary Medication (Brimonidine Tartrate/Timolol (Combigan Eye Drops)) 5 ml BID OP ; Start 10/12/18 at 09:00; Stop 10/12/18 at 09:00; Status DC Vitamin D (Vitamin D3) 1,000 unit DAILY PO Last administered on 10/12/18at 08:34 ; Start 10/12/18 at 09:00 Latanoprost (Xalatan) 1 drop QHS OU Last administered on 10/11/18 23:00; Start 10/11/18 at 22:00 Lisinopril (Prinivil) 5 mg DAILY PO Last administered on 10/12/18 08:34; Start 10/12/18 at 09:00 Multivitamins (Thera M Plus) 1 tab DAILY PO Last administered on 10/12/18 08: 34; Start 10/12/18 at 09:00 Pantoprazole Sodium (Protonix) 40 mg DAILY07 PO Last administered on 10/12/18 08:34; Start 10/12/18 at 07:00 Non-Formulary Medication (Prednisolone Acetate ) 1 drop Q2HR EACHEYE ; Start at 22:00; Stop 10/12/18 at 07:10; Status DC Sucralfate (Carafate) 1 gm QIDACHS PO Last administered on 10/12/18 08:34; Start 10/11/18 at 21:30 Ceftriaxone Sodium (Rocephin) 1 gm Q24H IVP Last administered on 10/12/18 08: 33; Start 10/12/18 at 09:00 Doxycycline Hyclate 100 mg/ Dextrose 100 ml @ 50 mls/hr Q12HR IV Last administered on 10/12/18 08:34; Start 10/12/18 at 09:00 Enoxaparin Sodium (Lovenox 30mg Syringe) 30 mg Q24H SQ Last administered on 23:00; Start 10/11/18 at 21:30 Brimonidine Tartrate (Alphagan) 1 drop BID OU Last administered on 10/12/18 08 :36; Start 10/12/18 at 09:00 Timolol Maleate (Timoptic 0.5% [facility]) 1 drop BID OU Last administered on 08:36; Start 10/12/18 at 09:00 Dexamethasone (Maxidex) 1 drop QID OU Last administered on 10/12/18 08:36; Start 10/12/18 at 09:00 Active Scripts Active Protonix (Pantoprazole Sodium) 20 Mg Tablet.dr 2 Tab PO DAILY Carafate (Sucralfate) 1 Gm Tablet 1 Tab PO QID Metoprolol Tartrate 25 Mg Tablet 12.5 Mg PO BID Lisinopril 5 Mg Tablet 5 Mg PO DAILY Atorvastatin Calcium 20 Mg Tablet 20 Mg PO QHS Aspirin Ec (Aspirin) 81 Mg Tablet.dr 81 Mg PO DAILYWBKFT Reported Prednisolone Acetate 5 Ml Drops.susp 1 Drop EACHEYE Q2HR Multivitamins (Multivitamin) 1 Each Tablet 1 Tab PO DAILY D3-50 (Cholecalciferol (Vitamin D3)) 50,000 Unit Capsule 50,000 Unit PO DAILY Clopidogrel (Clopidogrel Bisulfate) 75 Mg Tablet 1 Tab PO DAILY Latanoprost 2.5 Ml Drops 1 Drop EACHEYE QHS Dorzolamide Hcl 10 Ml Drops 1 Drop EACHEYE TID Tamsulosin Hcl 0.4 Mg Cap.er.24h 0.4 Mg PO BID Finasteride 5 Mg Tablet 5 Mg PO DAILY Combigan Eye Drops (Brimonidine Tartrate/Timolol) 5 Ml Drops 5 Ml OP BID Allergies Allergies: Coded Allergies: No Known Drug Allergies (Unverified , 06/15/16) ROS PSYCHOLOGICAL ROS: No: Hallucinations Eyes: No Loss of vision HEENT: No: Epistaxis Respiratory: YES: Shortness of breath; No: Orthopnea Cardiovascular: yes Chest Pain; No Palpitations Gastrointestinal: No Vomiting, No Diarrhea Genitourinary: No Hematuria Neurological: No Seizures Skin: No Rash Physical Exam General: Alert, Oriented X3 HEENT: Atraumatic, PERRLA Lungs: Clear to auscultation Heart: Regular rate Abdomen: Soft, No tenderness Extremities: Other (2+ edema right lower extremity and trace edema left lower extremity) Vitals VITALS Vital Signs Date Time Temp Pulse Resp B/P (MAP) Pulse Ox O2 Delivery O2 Flow Rate FiO2 10/12/18 08:34 73 133/75 10/12/18 08:00 Room Air 10/12/18 07:57 97 10/12/18 07:49 97.8 17 97.8 Labs Labs Laboratory Tests Test 10/11/18 14:25 10/11/18 15:15 10/11/18 16:14 10/11/18 19:15 White Blood Count 5.5 x10^3/uL (4.0-11.0) Red Blood Count 4.03 x10^6/uL (4.30-5.70) Hemoglobin 12.5 g/dL (13.0-17.5) Hematocrit 38.5 % (39.0-53.0) Mean Corpuscular Volume 96 fL (79-100) Mean Corpuscular Hemoglobin 31 pg (25-35) Mean Corpuscular Hemoglobin Concent 32 g/dL (31-37) Red Cell Distribution Width 14.0 % (11.5-14.5) Platelet Count 233 x10^3/uL (140-400) Neutrophils (%) (Auto) 70 % (31-73) Lymphocytes (%) (Auto) 17 % (24-48) Monocytes (%) (Auto) 10 % (0-9) Eosinophils (%) (Auto) 2 % (0-3) Basophils (%) (Auto) 1 % (0-3) Neutrophils # (Auto) 3.9 x10^3uL (1.8-7.7) Lymphocytes # (Auto) 0.9 x10^3/uL (1.0-4.8) Monocytes # (Auto) 0.6 x10^3/uL (0.0-1.1) Eosinophils # (Auto) 0.1 x10^3/uL (0.0-0.7) Basophils # (Auto) 0.0 x10^3/uL (0.0-0.2) Sodium Level 142 mmol/L (136-145) Potassium Level 3.7 mmol/L (3.5-5.1) Chloride Level 105 mmol/L (98-107) Carbon Dioxide Level 27 mmol/L (21-32) Anion Gap 10 (6-14) Blood Urea Nitrogen 10 mg/dL (8-26) Creatinine 1.2 mg/dL (0.7-1.3) Estimated GFR (Cockcroft-Gault) 70.9 BUN/Creatinine Ratio 8 (6-20) Glucose Level 106 mg/dL (70-99) Calcium Level 9.3 mg/dL (8.5-10.1) Total Bilirubin 0.9 mg/dL (0.2-1.0) Aspartate Amino Transf (AST/SGOT) 26 U/L (15-37) Alanine Aminotransferase (ALT/SGPT) 35 U/L (16-63) Alkaline Phosphatase 117 U/L (46-116) Troponin I Quantitative < 0.017 ng/mL (0.000-0.055) < 0.017 ng/mL (0.000-0.055) PA-Pdp-P-Type Natriuretic Peptide 305 pg/mL (0-449) Total Protein 7.8 g/dL (6.4-8.2) Albumin 3.7 g/dL (3.4-5.0) Albumin/Globulin Ratio 0.9 (1.0-1.7) Urine Collection Type Void Urine Color Yellow Urine Clarity Clear Urine pH 7.5 Urine Specific [place]lin <=1.005 Urine Protein Negative mg/dL (NEG-TRACE) Urine Glucose (UA) Negative mg/dL (NEG) Urine Ketones (Stick) Negative mg/dL (NEG) Urine Blood Negative (NEG) Urine Nitrite Negative (NEG) Urine Bilirubin Negative (NEG) Urine Urobilinogen Dipstick 0.2 mg/dL (0.2 mg/dL) Urine Leukocyte Esterase Negative (NEG) Urine RBC 0 /HPF (0-2) Urine WBC Rare /HPF (0-4) Urine Squamous Epithelial Cells Few /LPF Urine Bacteria 0 /HPF (0-FEW) Lactic Acid Level 0.9 mmol/L (0.4-2.0) Test 10/12/18 04:00 Sodium Level 143 mmol/L (136-145) Potassium Level 3.7 mmol/L (3.5-5.1) Chloride Level 107 mmol/L (98-107) Carbon Dioxide Level 24 mmol/L (21-32) Anion Gap 12 (6-14) Blood Urea Nitrogen 12 mg/dL (8-26) Creatinine 1.2 mg/dL (0.7-1.3) Estimated GFR (Cockcroft-Gault) 70.9 Glucose Level 103 mg/dL (70-99) Calcium Level 9.1 mg/dL (8.5-10.1) Troponin I Quantitative 0.025 ng/mL (0.000-0.055) Laboratory Tests Test 10/11/18 14:25 10/11/18 15:15 10/11/18 16:14 10/11/18 19:15 White Blood Count 5.5 x10^3/uL (4.0-11.0) Red Blood Count 4.03 x10^6/uL (4.30-5.70) Hemoglobin 12.5 g/dL (13.0-17.5) Hematocrit 38.5 % (39.0-53.0) Mean Corpuscular Volume 96 fL (79-100) Mean Corpuscular Hemoglobin 31 pg (25-35) Mean Corpuscular Hemoglobin Concent 32 g/dL (31-37) Red Cell Distribution Width 14.0 % (11.5-14.5) Platelet Count 233 x10^3/uL (140-400) Neutrophils (%) (Auto) 70 % (31-73) Lymphocytes (%) (Auto) 17 % (24-48) Monocytes (%) (Auto) 10 % (0-9) Eosinophils (%) (Auto) 2 % (0-3) Basophils (%) (Auto) 1 % (0-3) Neutrophils # (Auto) 3.9 x10^3uL (1.8-7.7) Lymphocytes # (Auto) 0.9 x10^3/uL (1.0-4.8) Monocytes # (Auto) 0.6 x10^3/uL (0.0-1.1) Eosinophils # (Auto) 0.1 x10^3/uL (0.0-0.7) Basophils # (Auto) 0.0 x10^3/uL (0.0-0.2) Sodium Level 142 mmol/L (136-145) Potassium Level 3.7 mmol/L (3.5-5.1) Chloride Level 105 mmol/L (98-107) Carbon Dioxide Level 27 mmol/L (21-32) Anion Gap 10 (6-14) Blood Urea Nitrogen 10 mg/dL (8-26) Creatinine 1.2 mg/dL (0.7-1.3) Estimated GFR (Cockcroft-Gault) 70.9 BUN/Creatinine Ratio 8 (6-20) Glucose Level 106 mg/dL (70-99) Calcium Level 9.3 mg/dL (8.5-10.1) Total Bilirubin 0.9 mg/dL (0.2-1.0) Aspartate Amino Transf (AST/SGOT) 26 U/L (15-37) Alanine Aminotransferase (ALT/SGPT) 35 U/L (16-63) Alkaline Phosphatase 117 U/L (46-116) Troponin I Quantitative < 0.017 ng/mL (0.000-0.055) < 0.017 ng/mL (0.000-0.055) IL-Tuz-Q-Type Natriuretic Peptide 305 pg/mL (0-449) Total Protein 7.8 g/dL (6.4-8.2) Albumin 3.7 g/dL (3.4-5.0) Albumin/Globulin Ratio 0.9 (1.0-1.7) Urine Collection Type Void Urine Color Yellow Urine Clarity Clear Urine pH 7.5 Urine Specific [place]lin <=1.005 Urine Protein Negative mg/dL (NEG-TRACE) Urine Glucose (UA) Negative mg/dL (NEG) Urine Ketones (Stick) Negative mg/dL (NEG) Urine Blood Negative (NEG) Urine Nitrite Negative (NEG) Urine Bilirubin Negative (NEG) Urine Urobilinogen Dipstick 0.2 mg/dL (0.2 mg/dL) Urine Leukocyte Esterase Negative (NEG) Urine RBC 0 /HPF (0-2) Urine WBC Rare /HPF (0-4) Urine Squamous Epithelial Cells Few /LPF Urine Bacteria 0 /HPF (0-FEW) Lactic Acid Level 0.9 mmol/L (0.4-2.0) Test 10/12/18 04:00 Sodium Level 143 mmol/L (136-145) Potassium Level 3.7 mmol/L (3.5-5.1) Chloride Level 107 mmol/L (98-107) Carbon Dioxide Level 24 mmol/L (21-32) Anion Gap 12 (6-14) Blood Urea Nitrogen 12 mg/dL (8-26) Creatinine 1.2 mg/dL (0.7-1.3) Estimated GFR (Cockcroft-Gault) 70.9 Glucose Level 103 mg/dL (70-99) Calcium Level 9.1 mg/dL (8.5-10.1) Troponin I Quantitative 0.025 ng/mL (0.000-0.055) Assessment/Plan Assessment/Plan 1. Chest pain and dyspnea on exertion in a patient with known history of coronary artery disease s/p PCI/JESUS to LAD/LCx 06/2016. His Plavix was stopped one year ago secondary to peptic ulcer disease. Myocardial infarction has been ruled out based on cardiac enzymes and EKG. Plan for cardiac catheterization and possible angina plasty tomorrow. Risks and benefits were explained and he is agreeable. 2. Hypertension: Controlled 3. Hyperlipidemia: Continue statin therapy 4. Pneumonia: Treat per IM 5. Possible right lower extremity venous insufficiency based on asymmetric edema. Doubt CHF. Plan for outpatient venous reflux study. Thank you for your consultation. HOLA STEWART MD Oct 12, 2018 09:40
[2018-10-12 11:05] VITALS: BP 140/83
--- NOTE | 2018-10-12 11:48 | EKG ---
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
--- NOTE | 2018-10-12 13:32 | PDOC ---
PROGRESS NOTES Chief Complaint Chief Complaint Chest pain - could be 2/2 pneumonia on CXR, however his left arm pain and improvement with NTG and CAD history and cessation of plavix last year for PUD merit further w/u. Trend trops. cont NTG, ASA, wikll follow cardiology associate recommendations. LLL Pneumonia - treat as CAP with rocephin + doxy Bilateral LE swelling - particularly concerning with BNP of 305, which is normal for age > 74. Will get US of bilateral LE, more concern for DVT on right but no evidence on US as of now. will follow on the left CAD - cont meds PUD - cont PPI, carafate. Stopped plavix previously for GI bleed HLD - cont statin continue antibiotics for CAP Cardiac diet PPX - lovenox FULL CODE Inpatient for CAP with chest pain and leg swelling. History of Present Illness History of Present Illness Patient with no new complaints. Still concerned about his lower summary edema. Reassurance has been provided after discussing results of his Doppler ultrasound family at bedside all concerns were addressed to the best of my abilities Vitals Vitals Vital Signs Date Time Temp Pulse Resp B/P (MAP) Pulse Ox O2 Delivery O2 Flow Rate FiO2 10/12/18 13:04 96 Room Air 10/12/18 11:05 98.0 66 17 140/83 (102) 98.0 Physical Exam General: Alert, Oriented X3 Heart: Regular rate Lungs: Clear Abdomen: Soft, No tenderness Extremities: Other (2+ edema right lower extremity and trace edema left lower extremity) Skin: No rashes, No breakdown, No significant lesion Labs LABS Laboratory Tests Test 10/11/18 14:25 10/11/18 15:15 10/11/18 16:14 10/11/18 19:15 White Blood Count 5.5 x10^3/uL (4.0-11.0) Red Blood Count 4.03 x10^6/uL (4.30-5.70) Hemoglobin 12.5 g/dL (13.0-17.5) Hematocrit 38.5 % (39.0-53.0) Mean Corpuscular Volume 96 fL (79-100) Mean Corpuscular Hemoglobin 31 pg (25-35) Mean Corpuscular Hemoglobin Concent 32 g/dL (31-37) Red Cell Distribution Width 14.0 % (11.5-14.5) Platelet Count 233 x10^3/uL (140-400) Neutrophils (%) (Auto) 70 % (31-73) Lymphocytes (%) (Auto) 17 % (24-48) Monocytes (%) (Auto) 10 % (0-9) Eosinophils (%) (Auto) 2 % (0-3) Basophils (%) (Auto) 1 % (0-3) Neutrophils # (Auto) 3.9 x10^3uL (1.8-7.7) Lymphocytes # (Auto) 0.9 x10^3/uL (1.0-4.8) Monocytes # (Auto) 0.6 x10^3/uL (0.0-1.1) Eosinophils # (Auto) 0.1 x10^3/uL (0.0-0.7) Basophils # (Auto) 0.0 x10^3/uL (0.0-0.2) Sodium Level 142 mmol/L (136-145) Potassium Level 3.7 mmol/L (3.5-5.1) Chloride Level 105 mmol/L (98-107) Carbon Dioxide Level 27 mmol/L (21-32) Anion Gap 10 (6-14) Blood Urea Nitrogen 10 mg/dL (8-26) Creatinine 1.2 mg/dL (0.7-1.3) Estimated GFR (Cockcroft-Gault) 70.9 BUN/Creatinine Ratio 8 (6-20) Glucose Level 106 mg/dL (70-99) Calcium Level 9.3 mg/dL (8.5-10.1) Total Bilirubin 0.9 mg/dL (0.2-1.0) Aspartate Amino Transf (AST/SGOT) 26 U/L (15-37) Alanine Aminotransferase (ALT/SGPT) 35 U/L (16-63) Alkaline Phosphatase 117 U/L (46-116) Troponin I Quantitative < 0.017 ng/mL (0.000-0.055) < 0.017 ng/mL (0.000-0.055) CO-Xot-Q-Type Natriuretic Peptide 305 pg/mL (0-449) Total Protein 7.8 g/dL (6.4-8.2) Albumin 3.7 g/dL (3.4-5.0) Albumin/Globulin Ratio 0.9 (1.0-1.7) Urine Collection Type Void Urine Color Yellow Urine Clarity Clear Urine pH 7.5 Urine Specific [place] <=1.005 Urine Protein Negative mg/dL (NEG-TRACE) Urine Glucose (UA) Negative mg/dL (NEG) Urine Ketones (Stick) Negative mg/dL (NEG) Urine Blood Negative (NEG) Urine Nitrite Negative (NEG) Urine Bilirubin Negative (NEG) Urine Urobilinogen Dipstick 0.2 mg/dL (0.2 mg/dL) Urine Leukocyte Esterase Negative (NEG) Urine RBC 0 /HPF (0-2) Urine WBC Rare /HPF (0-4) Urine Squamous Epithelial Cells Few /LPF Urine Bacteria 0 /HPF (0-FEW) Lactic Acid Level 0.9 mmol/L (0.4-2.0) Test 10/12/18 04:00 Sodium Level 143 mmol/L (136-145) Potassium Level 3.7 mmol/L (3.5-5.1) Chloride Level 107 mmol/L (98-107) Carbon Dioxide Level 24 mmol/L (21-32) Anion Gap 12 (6-14) Blood Urea Nitrogen 12 mg/dL (8-26) Creatinine 1.2 mg/dL (0.7-1.3) Estimated GFR (Cockcroft-Gault) 70.9 Glucose Level 103 mg/dL (70-99) Calcium Level 9.1 mg/dL (8.5-10.1) Troponin I Quantitative 0.025 ng/mL (0.000-0.055) Review of Systems Review of Systems Attendant as per history of present illness otherwise 14 point review of system is negative Assessment and Plan Assessmemt and Plan Problems Medical Problems: (1) Chest pain Status: Acute (2) Pneumonia Status: Acute Comment Review of Relevant I have reviewed the following items khoa (where applicable) has been applied. Labs Laboratory Tests Test 10/11/18 14:25 10/11/18 15:15 10/11/18 16:14 10/11/18 19:15 White Blood Count 5.5 x10^3/uL (4.0-11.0) Red Blood Count 4.03 x10^6/uL (4.30-5.70) Hemoglobin 12.5 g/dL (13.0-17.5) Hematocrit 38.5 % (39.0-53.0) Mean Corpuscular Volume 96 fL (79-100) Mean Corpuscular Hemoglobin 31 pg (25-35) Mean Corpuscular Hemoglobin Concent 32 g/dL (31-37) Red Cell Distribution Width 14.0 % (11.5-14.5) Platelet Count 233 x10^3/uL (140-400) Neutrophils (%) (Auto) 70 % (31-73) Lymphocytes (%) (Auto) 17 % (24-48) Monocytes (%) (Auto) 10 % (0-9) Eosinophils (%) (Auto) 2 % (0-3) Basophils (%) (Auto) 1 % (0-3) Neutrophils # (Auto) 3.9 x10^3uL (1.8-7.7) Lymphocytes # (Auto) 0.9 x10^3/uL (1.0-4.8) Monocytes # (Auto) 0.6 x10^3/uL (0.0-1.1) Eosinophils # (Auto) 0.1 x10^3/uL (0.0-0.7) Basophils # (Auto) 0.0 x10^3/uL (0.0-0.2) Sodium Level 142 mmol/L (136-145) Potassium Level 3.7 mmol/L (3.5-5.1) Chloride Level 105 mmol/L (98-107) Carbon Dioxide Level 27 mmol/L (21-32) Anion Gap 10 (6-14) Blood Urea Nitrogen 10 mg/dL (8-26) Creatinine 1.2 mg/dL (0.7-1.3) Estimated GFR (Cockcroft-Gault) 70.9 BUN/Creatinine Ratio 8 (6-20) Glucose Level 106 mg/dL (70-99) Calcium Level 9.3 mg/dL (8.5-10.1) Total Bilirubin 0.9 mg/dL (0.2-1.0) Aspartate Amino Transf (AST/SGOT) 26 U/L (15-37) Alanine Aminotransferase (ALT/SGPT) 35 U/L (16-63) Alkaline Phosphatase 117 U/L (46-116) Troponin I Quantitative < 0.017 ng/mL (0.000-0.055) < 0.017 ng/mL (0.000-0.055) PE-Xmn-I-Type Natriuretic Peptide 305 pg/mL (0-449) Total Protein 7.8 g/dL (6.4-8.2) Albumin 3.7 g/dL (3.4-5.0) Albumin/Globulin Ratio 0.9 (1.0-1.7) Urine Collection Type Void Urine Color Yellow Urine Clarity Clear Urine pH 7.5 Urine Specific [place] <=1.005 Urine Protein Negative mg/dL (NEG-TRACE) Urine Glucose (UA) Negative mg/dL (NEG) Urine Ketones (Stick) Negative mg/dL (NEG) Urine Blood Negative (NEG) Urine Nitrite Negative (NEG) Urine Bilirubin Negative (NEG) Urine Urobilinogen Dipstick 0.2 mg/dL (0.2 mg/dL) Urine Leukocyte Esterase Negative (NEG) Urine RBC 0 /HPF (0-2) Urine WBC Rare /HPF (0-4) Urine Squamous Epithelial Cells Few /LPF Urine Bacteria 0 /HPF (0-FEW) Lactic Acid Level 0.9 mmol/L (0.4-2.0) Test 10/12/18 04:00 Sodium Level 143 mmol/L (136-145) Potassium Level 3.7 mmol/L (3.5-5.1) Chloride Level 107 mmol/L (98-107) Carbon Dioxide Level 24 mmol/L (21-32) Anion Gap 12 (6-14) Blood Urea Nitrogen 12 mg/dL (8-26) Creatinine 1.2 mg/dL (0.7-1.3) Estimated GFR (Cockcroft-Gault) 70.9 Glucose Level 103 mg/dL (70-99) Calcium Level 9.1 mg/dL (8.5-10.1) Troponin I Quantitative 0.025 ng/mL (0.000-0.055) Laboratory Tests Test 10/11/18 14:25 10/11/18 15:15 10/11/18 16:14 10/11/18 19:15 White Blood Count 5.5 x10^3/uL (4.0-11.0) Red Blood Count 4.03 x10^6/uL (4.30-5.70) Hemoglobin 12.5 g/dL (13.0-17.5) Hematocrit 38.5 % (39.0-53.0) Mean Corpuscular Volume 96 fL (79-100) Mean Corpuscular Hemoglobin 31 pg (25-35) Mean Corpuscular Hemoglobin Concent 32 g/dL (31-37) Red Cell Distribution Width 14.0 % (11.5-14.5) Platelet Count 233 x10^3/uL (140-400) Neutrophils (%) (Auto) 70 % (31-73) Lymphocytes (%) (Auto) 17 % (24-48) Monocytes (%) (Auto) 10 % (0-9) Eosinophils (%) (Auto) 2 % (0-3) Basophils (%) (Auto) 1 % (0-3) Neutrophils # (Auto) 3.9 x10^3uL (1.8-7.7) Lymphocytes # (Auto) 0.9 x10^3/uL (1.0-4.8) Monocytes # (Auto) 0.6 x10^3/uL (0.0-1.1) Eosinophils # (Auto) 0.1 x10^3/uL (0.0-0.7) Basophils # (Auto) 0.0 x10^3/uL (0.0-0.2) Sodium Level 142 mmol/L (136-145) Potassium Level 3.7 mmol/L (3.5-5.1) Chloride Level 105 mmol/L (98-107) Carbon Dioxide Level 27 mmol/L (21-32) Anion Gap 10 (6-14) Blood Urea Nitrogen 10 mg/dL (8-26) Creatinine 1.2 mg/dL (0.7-1.3) Estimated GFR (Cockcroft-Gault) 70.9 BUN/Creatinine Ratio 8 (6-20) Glucose Level 106 mg/dL (70-99) Calcium Level 9.3 mg/dL (8.5-10.1) Total Bilirubin 0.9 mg/dL (0.2-1.0) Aspartate Amino Transf (AST/SGOT) 26 U/L (15-37) Alanine Aminotransferase (ALT/SGPT) 35 U/L (16-63) Alkaline Phosphatase 117 U/L (46-116) Troponin I Quantitative < 0.017 ng/mL (0.000-0.055) < 0.017 ng/mL (0.000-0.055) MI-Oij-C-Type Natriuretic Peptide 305 pg/mL (0-449) Total Protein 7.8 g/dL (6.4-8.2) Albumin 3.7 g/dL (3.4-5.0) Albumin/Globulin Ratio 0.9 (1.0-1.7) Urine Collection Type Void Urine Color Yellow Urine Clarity Clear Urine pH 7.5 Urine Specific [place] <=1.005 Urine Protein Negative mg/dL (NEG-TRACE) Urine Glucose (UA) Negative mg/dL (NEG) Urine Ketones (Stick) Negative mg/dL (NEG) Urine Blood Negative (NEG) Urine Nitrite Negative (NEG) Urine Bilirubin Negative (NEG) Urine Urobilinogen Dipstick 0.2 mg/dL (0.2 mg/dL) Urine Leukocyte Esterase Negative (NEG) Urine RBC 0 /HPF (0-2) Urine WBC Rare /HPF (0-4) Urine Squamous Epithelial Cells Few /LPF Urine Bacteria 0 /HPF (0-FEW) Lactic Acid Level 0.9 mmol/L (0.4-2.0) Test 10/12/18 04:00 Sodium Level 143 mmol/L (136-145) Potassium Level 3.7 mmol/L (3.5-5.1) Chloride Level 107 mmol/L (98-107) Carbon Dioxide Level 24 mmol/L (21-32) Anion Gap 12 (6-14) Blood Urea Nitrogen 12 mg/dL (8-26) Creatinine 1.2 mg/dL (0.7-1.3) Estimated GFR (Cockcroft-Gault) 70.9 Glucose Level 103 mg/dL (70-99) Calcium Level 9.1 mg/dL (8.5-10.1) Troponin I Quantitative 0.025 ng/mL (0.000-0.055) Medications Current Medications Aspirin (Denise Aspirin) 325 mg 1X ONCE PO Last administered on 10/11/18at 14:49 ; Start 10/11/18 at 14:30; Stop 10/11/18 at 14:31; Status DC Nitroglycerin (Nitrostat) 0.4 mg PRN Q5MIN PRN SL CHEST PAIN Last administered on 10/11/18at 14:59; Start 10/11/18 at 14:45 Levofloxacin/ Dextrose (Levaquin Per Pharmacy) 1 each PRN DAILY PRN MC SEE COMMENTS; Start 10/11/18 at 15:30; Status UNV Azithromycin 250 ml @ 250 mls/hr 1X ONCE IV ; Start 10/11/18 at 15:30; Stop at 16:29; Status UNV Levofloxacin/ Dextrose 100 ml @ 100 mls/hr 1X ONCE IV ; Start 10/11/18 at 15: 45; Stop 10/11/18 at 16:44; Status Cancel Doxycycline Hyclate 100 mg/ Dextrose 100 ml @ 50 mls/hr 1X ONCE IV Last administered on 10/11/18at 16:37; Start 10/11/18 at 16:00; Stop 10/11/18 at 17:59 ; Status DC Ceftriaxone Sodium (Rocephin) 1 gm 1X ONCE IVP Last administered on 10/11/18at 16:33; Start 10/11/18 at 16:00; Stop 10/11/18 at 16:10; Status DC Ondansetron HCl (Zofran) 4 mg PRN Q8HRS PRN IV NAUSEA/VOMITING; Start 10/11/18 at 16:30; Stop 10/12/18 at 16:29 Fentanyl Citrate (Fentanyl 2ml Vial) 50 mcg PRN Q1HR PRN IV PAIN; Start at 16:30; Stop 10/12/18 at 16:29 Acetaminophen (Tylenol) 650 mg PRN Q4HRS PRN PO FEVER; Start 10/11/18 at 16:30 ; Stop 10/12/18 at 16:29 Albuterol/ Ipratropium (Duoneb) 3 ml RTQID NEB Last administered on 10/12/18at 13:03; Start 10/11/18 at 20:00; Stop 10/12/18 at 19:59 Aspirin (Ecotrin) 81 mg DAILYWBKFT PO Last administered on 10/12/18at 08:34; Start 10/12/18 at 08:00 Atorvastatin Calcium (Lipitor) 20 mg QHS PO ; Start 10/12/18 at 21:00 Dorzolamide HCl (Trusopt) 1 drop TID OU Last administered on 10/12/18at 08:35; Start 10/11/18 at 22:00 Finasteride (Proscar) 5 mg DAILY PO Last administered on 10/12/18at 08:34; Start 10/12/18 at 09:00 Tamsulosin HCl (Flomax) 0.4 mg BID PO Last administered on 10/12/18 08:34; Start 10/11/18 at 21:30 Non-Formulary Medication (Brimonidine Tartrate/Timolol (Combigan Eye Drops)) 5 ml BID OP ; Start 10/12/18 at 09:00; Stop 10/12/18 at 09:00; Status DC Vitamin D (Vitamin D3) 1,000 unit DAILY PO Last administered on 10/12/18 08:34 ; Start 10/12/18 at 09:00 Latanoprost (Xalatan) 1 drop QHS OU Last administered on 10/11/18 23:00; Start 10/11/18 at 22:00 Lisinopril (Prinivil) 5 mg DAILY PO Last administered on 10/12/18 08:34; Start 10/12/18 at 09:00 Multivitamins (Thera M Plus) 1 tab DAILY PO Last administered on 10/12/18 08: 34; Start 10/12/18 at 09:00 Pantoprazole Sodium (Protonix) 40 mg DAILY07 PO Last administered on 10/12/18 08:34; Start 10/12/18 at 07:00 Non-Formulary Medication (Prednisolone Acetate ) 1 drop Q2HR EACHEYE ; Start at 22:00; Stop 10/12/18 at 07:10; Status DC Sucralfate (Carafate) 1 gm QIDACHS PO Last administered on 10/12/18 11:53; Start 10/11/18 at 21:30 Ceftriaxone Sodium (Rocephin) 1 gm Q24H IVP Last administered on 10/12/18 08: 33; Start 10/12/18 at 09:00 Doxycycline Hyclate 100 mg/ Dextrose 100 ml @ 50 mls/hr Q12HR IV Last administered on 10/12/18 08:34; Start 10/12/18 at 09:00 Enoxaparin Sodium (Lovenox 30mg Syringe) 30 mg Q24H SQ Last administered on 23:00; Start 10/11/18 at 21:30 Brimonidine Tartrate (Alphagan) 1 drop BID OU Last administered on 10/12/18 08 :36; Start 10/12/18 at 09:00 Timolol Maleate (Timoptic 0.5% Oph) 1 drop BID OU Last administered on at 08:36; Start 10/12/18 at 09:00 Dexamethasone (Maxidex) 1 drop QID OU Last administered on 10/12/18at 11:53; Start 10/12/18 at 09:00 Active Scripts Active Protonix (Pantoprazole Sodium) 20 Mg Tablet.dr 2 Tab PO DAILY Carafate (Sucralfate) 1 Gm Tablet 1 Tab PO QID Metoprolol Tartrate 25 Mg Tablet 12.5 Mg PO BID Lisinopril 5 Mg Tablet 5 Mg PO DAILY Atorvastatin Calcium 20 Mg Tablet 20 Mg PO QHS Aspirin Ec (Aspirin) 81 Mg Tablet.dr 81 Mg PO DAILYWBKFT Reported Prednisolone Acetate 5 Ml Drops.susp 1 Drop EACHEYE Q2HR Multivitamins (Multivitamin) 1 Each Tablet 1 Tab PO DAILY D3-50 (Cholecalciferol (Vitamin D3)) 50,000 Unit Capsule 50,000 Unit PO DAILY Clopidogrel (Clopidogrel Bisulfate) 75 Mg Tablet 1 Tab PO DAILY Latanoprost 2.5 Ml Drops 1 Drop EACHEYE QHS Dorzolamide Hcl 10 Ml Drops 1 Drop EACHEYE TID Tamsulosin Hcl 0.4 Mg Cap.er.24h 0.4 Mg PO BID Finasteride 5 Mg Tablet 5 Mg PO DAILY Combigan Eye Drops (Brimonidine Tartrate/Timolol) 5 Ml Drops 5 Ml OP BID Vitals/I & O Vital Sign - Last 24 Hours 10/11/18 10/11/18 10/11/18 10/11/18 14:16 14:52 14:59 15:00 Temp 98.7 98.7 Pulse 72 66 77 104 Resp 16 14 B/P (MAP) 140/89 (106) 166/87 132/68 132/68 (89) Pulse Ox 96 97 O2 Delivery Room Air Room Air 10/11/18 10/11/18 10/11/18 10/11/18 15:30 16:00 19:45 21:09 Temp 98.2 98.2 Pulse 62 60 69 Resp 14 14 18 B/P (MAP) 115/66 (82) 126/69 (88) 132/71 (91) Pulse Ox 96 96 98 96 O2 Delivery Room Air Room Air Room Air Room Air 10/11/18 10/11/18 10/12/18 10/12/18 22:30 23:15 03:10 07:49 Temp 97.4 97.9 97.8 97.4 97.9 97.8 Pulse 59 64 73 Resp 17 17 17 B/P (MAP) 146/84 (104) 147/75 (99) 133/75 (94) Pulse Ox 98 98 98 O2 Delivery Room Air Room Air Room Air Room Air 10/12/18 10/12/18 10/12/18 10/12/18 07:57 08:00 08:34 11:05 Temp 98.0 98.0 Pulse 73 66 Resp 17 B/P (MAP) 133/75 140/83 (102) Pulse Ox 97 96 O2 Delivery Room Air Room Air Room Air 10/12/18 13:04 Pulse Ox 96 O2 Delivery Room Air Intake and Output 10/11/18 10/11/18 10/12/18 15:00 23:00 07:00 Intake Total 500 ml Balance 500 ml TASIA YI MD Oct 12, 2018 13:32
[2018-10-12 14:49] VITALS: BP 136/70
--- NOTE | 2018-10-12 16:01 | RAD ---
Left lower extremity venous doppler ultrasound Indication:BLE SWELLING Technique: Color Doppler, grayscale, and spectral waveform analysis is used to evaluate the left femoral and popliteal veins. Findings: No evidence of deep venous thrombosis. Normal response to augmentation, normal compressibility and normal phasicity is demonstrated. Visualized calf veins are patent. Impression: Negative for deep venous thrombosis Electronically signed by: Anuel Finch MD (10/12/2018 3:57 PM) [facility]
[2018-10-12 19:50] VITALS: BP 149/86
[2018-10-12] MEDS: ENOXAPARIN 30 MG/0.3 ML SYRINGE. SQ SCH (21:30)
[2018-10-12] MEDS: ATORVASTATIN CALCIUM 20 MG TABLET PO SCH (22:52)
[2018-10-12] MEDS: LATANOPROST 0.005% OPHTH SOLUTION 2.5ML BOTTLE. OU SCH (22:55)
[2018-10-12] MEDS: LACTOBACILLUS RHAMNOSUS GG 1 CAPSULE. PO SCH (23:13)
[2018-10-12 23:15] VITALS: BP 136/86
[2018-10-13] VITALS (15 sets, daily range): BP systolic 121–160; BP diastolic 72–87
[2018-10-13] MEDS: PANTOPRAZOLE 40 MG TABLET.DR. PO SCH (07:00)
[2018-10-13] MEDS: SUCRALFATE 1 GM TABLET. PO SCH ×4 (07:30→21:14)
[2018-10-13] MEDS: CHOLECALCIFEROL (VITAMIN D3) 1,000 UNIT TABLET PO SCH (09:00)
[2018-10-13] MEDS: LACTOBACILLUS RHAMNOSUS GG 1 CAPSULE. PO SCH ×2 (09:00→21:14)
[2018-10-13] MEDS: FINASTERIDE 5 MG TABLET. PO SCH (09:00)
[2018-10-13] MEDS: MULTIVITAMIN with MINERAL TABLET. PO SCH (09:00)
[2018-10-13] MEDS: TAMSULOSIN 0.4 MG CAP.ER.24H. PO SCH ×2 (09:00→21:00)
[2018-10-13 09:28] LABS: PROTHROMBIN TIME PATIENT 14.8 SEC (11.7-14.0)
[2018-10-13] MEDS: LISINOPRIL 5 MG TABLET. PO SCH (09:28)
[2018-10-13] MEDS: DOXYCYCLINE HYCLATE 100 MG in IV DEXTROSE 5% 100ML 100 ML IV SCH ×2 (09:30→21:15)
[2018-10-13] MEDS: TIMOLOL 0.5% OPHTH SOLUTION 5ML BOTTLE. OU SCH ×2 (09:30→21:13)
[2018-10-13] MEDS: DORZOLAMIDE 2% OPHTH SOLUTION 10ML BOTTLE. OU SCH ×3 (09:30→21:13)
[2018-10-13] MEDS: ASPIRIN ENTERIC COATED 81 MG TABLET.DR. PO SCH (09:30)
[2018-10-13] MEDS: cefTRIAXone IV Push 1 GM VIAL. IVP SCH (09:30)
[2018-10-13] MEDS: BRIMONIDINE 0.2% OPHTH SOLUTION 5ML BOTTLE. OU SCH ×2 (09:30→21:13)
[2018-10-13] MEDS: DEXAMETHASONE 0.1% OPHTH SOLUTION 5ML BOTTLE. OU SCH ×4 (09:30→21:13)
--- NOTE | 2018-10-13 11:38 | NUR ---
SS following for discharge planning. SS reviewed pt chart. Pt is from home with spouse and currently on room air. No discharge needs noted at this time. SS will continue to follow for pending discharge needs.
[2018-10-13] MEDS ORDERED: IODIXANOL 320 MG/ML 100 ML VIAL. ONE (14:33)
[2018-10-13] MEDS ORDERED: LIDOCAINE 1% PF 2 ML VIAL. ONE (14:34)
[2018-10-13] MEDS ORDERED: VERAPAMIL 5 MG/2 ML VIAL. ONE (14:51)
[2018-10-13] MEDS ORDERED: MIDAZOLAM HCL/PF 2 MG/2 ML VIAL. ONE (14:51)
[2018-10-13] MEDS ORDERED: fentaNYL PF VIAL 100 MCG/2 ML VIAL ONE (14:51)
[2018-10-13] MEDS ORDERED: NITROGLYCERIN 200 MCG/2 ML SYRINGE FOR CATH/VASC LAB. ONE (14:52)
[2018-10-13] MEDS ORDERED: HEPARIN for IV BOLUS 10,000 UNIT/10 ML VIAL. ONE (14:52)
--- NOTE | 2018-10-13 15:05 | PDOC ---
PROGRESS NOTES Chief Complaint Chief Complaint Chest pain - could be 2/2 pneumonia on CXR, however his left arm pain and improvement with NTG and CAD history and cessation of plavix last year patient will undergo cardiac cath today LLL Pneumonia - treat as CAP with rocephin + doxy Bilateral LE swelling - particularly concerning with BNP of 305, which is normal for age > 74. Will get US of bilateral LE, more concern for DVT on right but no evidence on US as of now. will follow on the left CAD - cont meds PUD - cont PPI, carafate. Stopped plavix previously for GI bleed HLD - cont statin continue antibiotics for CAP Cardiac diet PPX - lovenox FULL CODE Inpatient for CAP with chest pain and leg swelling. cardiac cath today reassurance that bilaeral dopplers were negative, venous insufficiency vs salt abuse as possbile etiolgoy for peripheral edema History of Present Illness History of Present Illness Patient with no new complaints. Still concerned about his lower summary edema. Reassurance has been provided after discussing results of his Doppler ultrasound family at bedside all concerns were addressed to the best of my abilities Vitals Vitals Vital Signs Date Time Temp Pulse Resp B/P (MAP) Pulse Ox O2 Delivery O2 Flow Rate FiO2 10/13/18 15:00 97.6 90 16 160/83 (108) 98 Room Air 97.6 Physical Exam General: Alert, Oriented X3 Heart: Regular rate Lungs: Clear Abdomen: Soft, No tenderness Extremities: Other (2+ edema right lower extremity and trace edema left lower extremity) Skin: No rashes, No breakdown, No significant lesion Labs LABS Laboratory Tests Test 10/13/18 08:40 Prothrombin Time 14.8 SEC (11.7-14.0) Prothromb Time International Ratio 1.2 (0.8-1.1) Review of Systems Review of Systems Pertinent as per history of present illness otherwise 14 point review of system is negative Assessment and Plan Assessmemt and Plan Problems Medical Problems: (1) Chest pain Status: Acute (2) Pneumonia Status: Acute Comment Review of Relevant I have reviewed the following items khoa (where applicable) has been applied. Labs Laboratory Tests Test 10/11/18 15:15 10/11/18 16:14 10/11/18 19:15 10/12/18 04:00 Urine Collection Type Void Urine Color Yellow Urine Clarity Clear Urine pH 7.5 Urine Specific [place] <=1.005 Urine Protein Negative mg/dL (NEG-TRACE) Urine Glucose (UA) Negative mg/dL (NEG) Urine Ketones (Stick) Negative mg/dL (NEG) Urine Blood Negative (NEG) Urine Nitrite Negative (NEG) Urine Bilirubin Negative (NEG) Urine Urobilinogen Dipstick 0.2 mg/dL (0.2 mg/dL) Urine Leukocyte Esterase Negative (NEG) Urine RBC 0 /HPF (0-2) Urine WBC Rare /HPF (0-4) Urine Squamous Epithelial Cells Few /LPF Urine Bacteria 0 /HPF (0-FEW) Lactic Acid Level 0.9 mmol/L (0.4-2.0) Troponin I Quantitative < 0.017 ng/mL (0.000-0.055) 0.025 ng/mL (0.000-0.055) Sodium Level 143 mmol/L (136-145) Potassium Level 3.7 mmol/L (3.5-5.1) Chloride Level 107 mmol/L (98-107) Carbon Dioxide Level 24 mmol/L (21-32) Anion Gap 12 (6-14) Blood Urea Nitrogen 12 mg/dL (8-26) Creatinine 1.2 mg/dL (0.7-1.3) Estimated GFR (Cockcroft-Gault) 70.9 Glucose Level 103 mg/dL (70-99) Calcium Level 9.1 mg/dL (8.5-10.1) Test 10/13/18 08:40 Prothrombin Time 14.8 SEC (11.7-14.0) Prothromb Time International Ratio 1.2 (0.8-1.1) Laboratory Tests Test 10/13/18 08:40 Prothrombin Time 14.8 SEC (11.7-14.0) Prothromb Time International Ratio 1.2 (0.8-1.1) Microbiology 10/11/18 Blood Culture - Preliminary, Resulted NO GROWTH AFTER 1 DAY Medications Current Medications Aspirin (Denise Aspirin) 325 mg 1X ONCE PO Last administered on 10/11/18at 14:49 ; Start 10/11/18 at 14:30; Stop 10/11/18 at 14:31; Status DC Nitroglycerin (Nitrostat) 0.4 mg PRN Q5MIN PRN SL CHEST PAIN Last administered on 10/11/18at 14:59; Start 10/11/18 at 14:45 Levofloxacin/ Dextrose (Levaquin Per Pharmacy) 1 each PRN DAILY PRN MC SEE COMMENTS; Start 10/11/18 at 15:30; Status UNV Azithromycin 250 ml @ 250 mls/hr 1X ONCE IV ; Start 10/11/18 at 15:30; Stop at 16:29; Status UNV Levofloxacin/ Dextrose 100 ml @ 100 mls/hr 1X ONCE IV ; Start 10/11/18 at 15: 45; Stop 10/11/18 at 16:44; Status Cancel Doxycycline Hyclate 100 mg/ Dextrose 100 ml @ 50 mls/hr 1X ONCE IV Last administered on 10/11/18at 16:37; Start 10/11/18 at 16:00; Stop 10/11/18 at 17:59 ; Status DC Ceftriaxone Sodium (Rocephin) 1 gm 1X ONCE IVP Last administered on 10/11/18at 16:33; Start 10/11/18 at 16:00; Stop 10/11/18 at 16:10; Status DC Ondansetron HCl (Zofran) 4 mg PRN Q8HRS PRN IV NAUSEA/VOMITING; Start 10/11/18 at 16:30; Stop 10/12/18 at 16:29; Status DC Fentanyl Citrate (Fentanyl 2ml Vial) 50 mcg PRN Q1HR PRN IV PAIN; Start at 16:30; Stop 10/12/18 at 16:29; Status DC Acetaminophen (Tylenol) 650 mg PRN Q4HRS PRN PO FEVER; Start 10/11/18 at 16:30 ; Stop 10/12/18 at 16:29; Status DC Albuterol/ Ipratropium (Duoneb) 3 ml RTQID NEB Last administered on 10/12/18at 16:04; Start 10/11/18 at 20:00; Stop 10/12/18 at 19:59; Status DC Aspirin (Ecotrin) 81 mg DAILYWBKFT PO Last administered on 10/13/18at 09:30; Start 10/12/18 at 08:00 Atorvastatin Calcium (Lipitor) 20 mg QHS PO Last administered on 10/12/18at 22: 52; Start 10/12/18 at 21:00 Dorzolamide HCl (Trusopt) 1 drop TID OU Last administered on 10/13/18 09:30; Start 10/11/18 at 22:00 Finasteride (Proscar) 5 mg DAILY PO Last administered on 10/12/18 08:34; Start 10/12/18 at 09:00 Tamsulosin HCl (Flomax) 0.4 mg BID PO Last administered on 10/12/18 22:52; Start 10/11/18 at 21:30 Non-Formulary Medication (Brimonidine Tartrate/Timolol (Combigan Eye Drops)) 5 ml BID OP ; Start 10/12/18 at 09:00; Stop 10/12/18 at 09:00; Status DC Vitamin D (Vitamin D3) 1,000 unit DAILY PO Last administered on 10/12/18 08:34 ; Start 10/12/18 at 09:00 Latanoprost (Xalatan) 1 drop QHS OU Last administered on 10/12/18 22:55; Start 10/11/18 at 22:00 Lisinopril (Prinivil) 5 mg DAILY PO Last administered on 10/13/18 09:28; Start 10/12/18 at 09:00 Multivitamins (Thera M Plus) 1 tab DAILY PO Last administered on 10/12/18 08: 34; Start 10/12/18 at 09:00 Pantoprazole Sodium (Protonix) 40 mg DAILY07 PO Last administered on 10/12/18 08:34; Start 10/12/18 at 07:00 Non-Formulary Medication (Prednisolone Acetate ) 1 drop Q2HR EACHEYE ; Start at 22:00; Stop 10/12/18 at 07:10; Status DC Sucralfate (Carafate) 1 gm QIDACHS PO Last administered on 10/12/18 22:52; Start 10/11/18 at 21:30 Ceftriaxone Sodium (Rocephin) 1 gm Q24H IVP Last administered on 10/13/18 09: 30; Start 10/12/18 at 09:00 Doxycycline Hyclate 100 mg/ Dextrose 100 ml @ 50 mls/hr Q12HR IV Last administered on 10/13/18 09:30; Start 10/12/18 at 09:00 Enoxaparin Sodium (Lovenox 30mg Syringe) 30 mg Q24H SQ Last administered on at 23:00; Start 10/11/18 at 21:30 Brimonidine Tartrate (Alphagan) 1 drop BID OU Last administered on 10/13/18at 09 :30; Start 10/12/18 at 09:00 Timolol Maleate (Timoptic 0.5% Ophth) 1 drop BID OU Last administered on 09:30; Start 10/12/18 at 09:00 Dexamethasone (Maxidex) 1 drop QID OU Last administered on 10/13/18at 09:30; Start 10/12/18 at 09:00 Lactobacillus Rhamnosus (Culturelle) 1 cap BID PO Last administered on at 23:13; Start 10/12/18 at 21:00 Iodixanol (Visipaque 320) 100 ml STK-MED ONCE .ROUTE ; Start 10/13/18 at 14:33; Stop 10/13/18 at 14:34; Status DC Lidocaine HCl (Xylocaine-Mpf 1% 2ml Vial) 2 ml STK-MED ONCE .ROUTE ; Start 10/13 at 14:34; Stop 10/13/18 at 14:35; Status DC Heparin Sodium/ Sodium Chloride 500 ml @ As Directed STK-MED ONCE .ROUTE ; Start 10/13/18 at 14:34; Stop 10/13/18 at 14:35; Status DC Midazolam HCl (Versed) 2 mg STK-MED ONCE .ROUTE ; Start 10/13/18 at 14:51; Stop 10/13/18 at 14:52; Status DC Fentanyl Citrate (Fentanyl 2ml Vial) 100 mcg STK-MED ONCE .ROUTE ; Start at 14:51; Stop 10/13/18 at 14:52; Status DC Verapamil HCl (Verapamil) 5 mg STK-MED ONCE .ROUTE ; Start 10/13/18 at 14:51; Stop 10/13/18 at 14:52; Status DC Heparin Sodium (Porcine) (Heparin Sodium) 10,000 unit STK-MED ONCE .ROUTE ; Start 10/13/18 at 14:52; Stop 10/13/18 at 14:53; Status DC Nitroglycerin (Nitroglycerin) 200 mcg STK-MED ONCE .ROUTE ; Start 10/13/18 at 14 :52; Stop 10/13/18 at 14:53; Status DC Active Scripts Active Protonix (Pantoprazole Sodium) 20 Mg Tablet.dr 2 Tab PO DAILY Carafate (Sucralfate) 1 Gm Tablet 1 Tab PO QID Metoprolol Tartrate 25 Mg Tablet 12.5 Mg PO BID Lisinopril 5 Mg Tablet 5 Mg PO DAILY Atorvastatin Calcium 20 Mg Tablet 20 Mg PO QHS Aspirin Ec (Aspirin) 81 Mg Tablet.dr 81 Mg PO DAILYWBKFT Reported Prednisolone Acetate 5 Ml Drops.susp 1 Drop EACHEYE Q2HR Multivitamins (Multivitamin) 1 Each Tablet 1 Tab PO DAILY D3-50 (Cholecalciferol (Vitamin D3)) 50,000 Unit Capsule 50,000 Unit PO DAILY Clopidogrel (Clopidogrel Bisulfate) 75 Mg Tablet 1 Tab PO DAILY Latanoprost 2.5 Ml Drops 1 Drop EACHEYE QHS Dorzolamide Hcl 10 Ml Drops 1 Drop EACHEYE TID Tamsulosin Hcl 0.4 Mg Cap.er.24h 0.4 Mg PO BID Finasteride 5 Mg Tablet 5 Mg PO DAILY Combigan Eye Drops (Brimonidine Tartrate/Timolol) 5 Ml Drops 5 Ml OP BID Vitals/I & O Vital Sign - Last 24 Hours 10/12/18 10/12/18 10/12/18 10/12/18 16:04 19:50 20:00 23:15 Temp 97.9 98.1 97.9 98.1 Pulse 72 62 Resp 18 16 B/P (MAP) 149/86 (107) 136/86 (103) Pulse Ox 96 96 98 O2 Delivery Room Air Room Air Room Air Room Air 10/13/18 10/13/18 10/13/18 10/13/18 03:35 07:00 08:29 09:28 Temp 98.0 97.5 98.0 97.5 Pulse 89 91 91 Resp 16 16 B/P (MAP) 141/78 (99) 147/75 (99) 147/75 Pulse Ox 99 96 O2 Delivery Room Air Room Air Room Air 10/13/18 10/13/18 10:47 15:00 Temp 98.0 97.6 98.0 97.6 Pulse 60 90 Resp 16 16 B/P (MAP) 121/74 (90) 160/83 (108) Pulse Ox 98 98 O2 Delivery Room Air Room Air Intake and Output 10/12/18 10/12/18 10/13/18 15:00 23:00 07:00 Intake Total 120 ml 600 ml 750 ml Output Total 650 ml Balance -530 ml 600 ml 750 ml TASIA YI MD Oct 13, 2018 15:05
[2018-10-13] MEDS ORDERED: MIDAZOLAM HCL/PF 2 MG/2 ML VIAL. IV ONE (15:30)
[2018-10-13] MEDS ORDERED: VERAPAMIL 5 MG/2 ML VIAL. IART ONE (15:30)
[2018-10-13] MEDS ORDERED: fentaNYL PF VIAL 100 MCG/2 ML VIAL IV ONE (15:30)
[2018-10-13] MEDS ORDERED: IODIXANOL 320 MG/ML 100 ML VIAL. IART ONE (15:30)
[2018-10-13] MEDS ORDERED: HEPARIN for IV BOLUS 10,000 UNIT/10 ML VIAL. IART ONE (15:30)
[2018-10-13] MEDS ORDERED: LIDOCAINE 1% PF 2 ML VIAL. INJ ONE (15:30)
[2018-10-13] MEDS ORDERED: NITROGLYCERIN 200 MCG/2 ML SYRINGE FOR CATH/VASC LAB. IART ONE (15:30)
--- NOTE | 2018-10-13 15:33 | PDOC ---
MODERATE SEDATION ASSESSMENT RISKS/ALTERNATIVES Risks/Alternatives Risks and alternatives of this type of sedation and procedure discussed with: RISK/ALTERNATIVES: Patient H & P ON CHART H & P H & P on chart and reviewed for co-morbid conditions and appropriate labs. H&P ON CHART: Yes STATUS PREG STATUS ASSESSED: N/A MEDS/ALLERGIES REVIEWED Meds/Allergies Reviewed Medications and Allergies including time and route of recently administered narcotics and sedatives. MEDS/ALLERGIES REVIEWED: Yes ASA RATING ASA RATING: II AIRWAY ASSESSMENT Airway Assessment Airway patency, oral function limitations, presence of caps, crowns, dentures, partials, and ability to extend neck assessed. AIRWAY ASSESSMENT: Yes MALLAMPATI SCORE MALLAMPATI SCORE: II PRE-SEDATION ASSESSMENT PRE-SEDATION ASSESSMENT: Yes HOLA STEWART MD Oct 13, 2018 15:33
[2018-10-13] MEDS: IV 1/2 NORMAL SALINE 1,000 ML IV SCH (15:34)
[2018-10-13] MEDS ORDERED: NITROGLYCERIN SUBLINGUAL 0.4 MG BOTTLE OF 25. SL PRN (15:45)
--- NOTE | 2018-10-13 15:57 | CARD ---
MR#: [id number] Date of Study: 10/13/2018 Ordering Physician: HOLA HEDRICK, Referring Physician: RAIN DAMON Tech: RT Marry (R) APPROVED REPORT Technologist: RT Marry (R) Nurse: MANPREET WEBBER RN Procedure(s) performed: Left heart catheterization, selective coronary angiography and left ventricul ography via right transradial approach Moderate sedation:14 mins INDICATION The indication(s) include : unstable angina . CSHA Clinical Frailty Scale [facility] Clinical Frailty Scale: Well Heart Failure Heart Failure: No PROCEDURE NARRATIVE After explaining the risks, benefits and alternative options, informed consent was obtained from pam ent. Patient was brought to the cardiac Pyridine Recovery Operator and right wrist was prepped and draped in the usual fashion after confirming a positive modified Christopher's test. Arterial access was obtained in the righ t radial artery and a 6 Lao sheath was inserted. 6 Lao Jeremias catheter was used to perform palmer ective angiography of the left and right coronary arteries. 6 Lao pigtail catheter was used to pe rform left ventriculography. Patient tolerated the procedure well. Hemostasis was achieved using TR band. There were no immediate complications. The following findings were noted. FINDINGS 1. Hemodynamics: Left ventricular end-diastolic pressure of 12 mmHg. No pullback gradient across th e aortic valve. 2. Left ventriculography: Normal left ventricle systolic function with ejection fraction estimated at 65%. No significant mitral regurgitation seen. 3. Coronary angiography: a. The left main coronary artery arose from the left sinus of Valsalva, gave rise to the left anteri or descending and left circumflex arteries and did not show any significant stenosis. b. The left anterior descending artery showed patent stent in the midsegment. c. The left circumflex artery showed patent stent in the mid to distal segment of obtuse marginal br anch. d. The right coronary artery was a large and dominant vessel arising from the right sinus of Valsalv a that did not show any significant stenosis. Conclusion 1. No significant coronary artery stenosis with patent previously placed stents in left anterior bailey cending artery and obtuse marginal branch of left circumflex artery 2. Normal left ventricle systolic function with ejection fraction estimated at 65%. Recommendations Medical Therapy Signed by : Hola Hedrick, Electronically Approved : 10/13/2018 15:56:37
[2018-10-13] MEDS ORDERED: ENOXAPARIN 40 MG/0.4 ML SYRINGE. SQ SCH (21:00)
[2018-10-13] MEDS: LATANOPROST 0.005% OPHTH SOLUTION 2.5ML BOTTLE. OU SCH (21:13)
[2018-10-13] MEDS: ATORVASTATIN CALCIUM 20 MG TABLET PO SCH (21:14)
[2018-10-14 03:45] VITALS: BP 144/70
[2018-10-14 07:00] VITALS: BP 116/63
[2018-10-14] MEDS: PANTOPRAZOLE 40 MG TABLET.DR. PO SCH ×2 (07:00→07:31)
[2018-10-14] MEDS: SUCRALFATE 1 GM TABLET. PO SCH ×2 (07:32→12:11)
[2018-10-14] MEDS: IV 1/2 NORMAL SALINE 1,000 ML IV SCH (08:14)
[2018-10-14] MEDS: ASPIRIN ENTERIC COATED 81 MG TABLET.DR. PO SCH (08:43)
[2018-10-14] MEDS: CHOLECALCIFEROL (VITAMIN D3) 1,000 UNIT TABLET PO SCH (08:43)
[2018-10-14] MEDS: DOXYCYCLINE HYCLATE 100 MG in IV DEXTROSE 5% 100ML 100 ML IV SCH (08:43)
[2018-10-14] MEDS: MULTIVITAMIN with MINERAL TABLET. PO SCH (08:43)
[2018-10-14] MEDS: BRIMONIDINE 0.2% OPHTH SOLUTION 5ML BOTTLE. OU SCH (08:44)
[2018-10-14] MEDS: cefTRIAXone IV Push 1 GM VIAL. IVP SCH (08:44)
[2018-10-14] MEDS: TIMOLOL 0.5% OPHTH SOLUTION 5ML BOTTLE. OU SCH (08:44)
[2018-10-14] MEDS: LACTOBACILLUS RHAMNOSUS GG 1 CAPSULE. PO SCH (08:44)
[2018-10-14] MEDS: FINASTERIDE 5 MG TABLET. PO SCH (08:44)
[2018-10-14] MEDS: DEXAMETHASONE 0.1% OPHTH SOLUTION 5ML BOTTLE. OU SCH (08:44)
[2018-10-14] MEDS: LISINOPRIL 5 MG TABLET. PO SCH (08:44)
[2018-10-14] MEDS: DORZOLAMIDE 2% OPHTH SOLUTION 10ML BOTTLE. OU SCH (08:44)
[2018-10-14] MEDS: TAMSULOSIN 0.4 MG CAP.ER.24H. PO SCH (08:44)
[2018-10-14] MEDS ORDERED: LACT1CAP19 PO (09:54)
[2018-10-14] MEDS ORDERED: DOXY100T PO (09:54)
--- NOTE | 2018-10-14 10:20 | PDOC3 ---
Discharge Summary Visit Information Date of Admission: Oct 11, 2018 Date of Discharge: Oct 14, 2018 Admitting Diagnosis Comment: Chest pain - could be 2/2 pneumonia on CXR, however his left arm pain and improvement with NTG and CAD history and cessation of plavix last year for PUD merit further w/u. Trend trops. cont NTG, ASA, consult cardiology LLL Pneumonia - treat as CAP with rocephin + doxy Bilateral LE swelling - particularly concerning with BNP of 305, which is normal for age > 74. Will get US of bilateral LE, more concern for DVT on right , though no provocation is in his history. Lovenox for now CAD - cont meds PUD - cont PPI, carafate. Stopped plavix previously for GI bleed HLD - cont statin Final Diagnosis Problems Medical Problems: (1) Chest pain ACS ruled out most likely due to Pneumonic process with pleuresy Status: Acute (2) Pneumonia left lower lobe bacterial Status: Acute bilateral lower extremity with no evidence of sonographic DVT Dyslipidemia Brief Hospital Course Allergies Allergies Coded Allergies Type Severity Reaction Last Updated Verified No Known Drug Allergies 06/15/16 No Vital Signs Vital Signs Date Time Temp Pulse Resp B/P (MAP) Pulse Ox O2 Delivery O2 Flow Rate FiO2 10/14/18 08:44 78 116/63 10/14/18 08:23 Room Air 10/14/18 07:00 98.3 16 95 98.3 10/13/18 15:33 2.0 Lab Results Laboratory Tests Test 10/13/18 08:40 Prothrombin Time 14.8 SEC (11.7-14.0) Prothromb Time International Ratio 1.2 (0.8-1.1) Brief Hospital Course 78 year old male w/ PMHx HTN, CAD, GERD, PUD, HLD, BPH who presents with mid chest pressure for the last 4 days that comes and goes. Patient states that when he was shoveling snow days ago he feels that it triggered this pressure. Patient denies shortness of air, nausea, vomiting, fever. Patient has a history of stents [address] Piña. Patient states he is also concerned that he's been having worsening extremity edema in his ankles, R>L. BNP 305 In ED found with negative troponin, EKG. CXR revealed a LLL infiltrate and based on his symptoms and mild renal insufficiency was called for inpatient admission for community acquired pneumonia Patient was promptly started on broad-spectrum antibiotics. He was seen in consultation by cardiology as well, given his coronary artery disease risk factors patient was taken for a cardiac catheterization with no evidence of flow limiting lesions. Patient was given reassurance that his heart was in good standing. Most likely the reason for his lower external edema is excessive salt intake with fluid retention. There was no evidence on Doppler ultrasound bilaterally that he had a DVT. Reassurance was provided to the patient he is in good spirits to be dismissed home, the patient did not experience any acute events during his hospital stay. Signs and symptoms of alarm were discussed with the patient prior to dismissal. He has not understanding of all the instructions and all of his concerns were addressed to the best of my abilities Gen.: well-developed well-nourished in no apparent distress Head: Normal shape atraumatic Eyes: Pupils equal reactive to light and accommodation, normal conjunctivae and lids Ears: Normal shape Nose: Normal shape no trauma Mouth: No exudates of the back of throat no thrush no lesions Neck: Supple no JVD no carotid bruit or lymphadenopathy no thyromegaly Chest: Lungs clear to auscultation with good inspiratory effort no crackles rales or rhonchi Cardiovascular: S1-S2 regular rhythm no murmurs gallops or rubs Abdomen: Bowel sounds present soft nontender no hepatosplenomegaly appreciated sign Extremities: No clubbing no cyanosis no edema peripheral pulses palpated bilaterally Neurological: Alert awake oriented in person time place and situation, cranial nerves II through XII intact, no motor or sensory deficits appreciated Psych: Appropriate mood, cooperative Discharge Information Condition at Discharge: Improved Follow Up: Weeks Disposition/Orders: D/C to Home Scheduled Aspirin (Aspirin Ec) 81 Mg Tablet., 81 MG PO DAILYWBK, #30 Ref 3 Prescribed by: MAXIME NASSAR MD on 06/19/161114 Last Action: Continued on 10/11/182115 by RAIN DAMON MD Atorvastatin Calcium (Atorvastatin Calcium) 20 Mg Tablet, 20 MG PO QHS, #30 Ref 1 Prescribed by: MAXIME NASSAR MD on 06/19/161114 Last Action: Continued on 10/11/182115 by RAIN DAMON MD Brimonidine Tartrate/Timolol (Combigan Eye Drops) 5 Ml Drops, 5 ML OP BID, ( Reported) Entered as Reported by: Felecia Rice on 06/16/16216 Last Action: Converted on 10/11/182115 by RAIN DAMON MD Cholecalciferol (Vitamin D3) (D3-50) 50,000 Unit Capsule, 50,000 UNIT PO DAILY, (Reported) Entered as Reported by: ESTHELA LE on 07/13/172042 Last Action: Converted on 10/11/182115 by RAIN DAMON MD Clopidogrel Bisulfate (Clopidogrel) 75 Mg Tablet, 1 TAB PO DAILY, #90 Ref 1 ( Reported) Entered as Reported by: ESTHELA LE on 07/13/172038 Last Action: HELD on 10/11/182115 by RAIN DAMON MD Dorzolamide Hcl (Dorzolamide Hcl) 10 Ml Drops, 1 DROP EACHEYE TID, #30 Ref 3 ( Reported) Entered as Reported by: Felecia Rice on 06/16/16216 Last Action: Continued on 10/11/182115 by RAIN DAMON MD Doxycycline Hyclate (Doxycycline Hyclate) 100 Mg Tablet, 1 TAB PO BID for Pneumonia for 3 Days, #6 Prescribed by: TASIA YI MD on 10/14/18 0954 Finasteride (Finasteride) 5 Mg Tablet, 5 MG PO DAILY, (Reported) Entered as Reported by: Felecia Rice on 06/16/16216 Last Action: Continued on 10/11/182115 by RAIN DAMON MD Lactobacillus Rhamnosus Gg (Culturelle) 1 Each Cap.sprink, 1 CAP PO BID for probiotic for 7 Days, #14 Prescribed by: TASIA YI MD on 10/14/18 0954 Latanoprost (Latanoprost) 2.5 Ml Drops, 1 DROP EACHEYE QHS, #7.5 Ref 3 (Reported ) Entered as Reported by: Felecia Rice on 06/16/16216 Last Action: Converted on 10/11/182115 by RAIN DAMON MD Lisinopril (Lisinopril) 5 Mg Tablet, 5 MG PO DAILY, #30 Ref 1 Prescribed by: MAXIME NASSAR MD on 06/19/16 1115 Last Action: Converted on 10/11/182115 by RAIN DAMON MD Metoprolol Tartrate (Metoprolol Tartrate) 25 Mg Tablet, 12.5 MG PO BID, #30 Ref 1 Prescribed by: MAXIME NASSAR MD on 06/19/16 1115 Last Action: HELD on 10/11/182115 by RAIN DAMON MD Multivitamin (Multivitamins) 1 Each Tablet, 1 TAB PO DAILY, #90 Ref 3 (Reported) Entered as Reported by: ESTHELA LE on 07/13/172042 Last Action: Converted on 10/11/182115 by RAIN DAMON MD Pantoprazole Sodium (Protonix) 20 Mg Tablet.dr, 2 TAB PO DAILY for PUD, #90 Ref 3 Prescribed by: ARASH DYE on 08/17/18 1031 Last Action: Converted on 10/11/182115 by RAIN DAMON MD Prednisolone Acetate (Prednisolone Acetate) 5 Ml Drops.susp, 1 DROP EACHEYE Q2HR , #5 (Reported) Entered as Reported by: ESTHELA LE on 07/13/172157 Last Action: Converted on 10/11/182115 by RAIN DAMON MD Sucralfate (Carafate) 1 Gm Tablet, 1 TAB PO QID for PUD, #120 Ref 1 Prescribed by: ARASH DYE on 08/17/18 1031 Last Action: Converted on 10/11/182115 by RAIN DAMON MD Tamsulosin Hcl (Tamsulosin Hcl) 0.4 Mg Cap.er.24h, 0.4 MG PO BID, (Reported) Entered as Reported by: Felecia Rice on 06/16/16 0217 Last Action: Continued on 10/11/182115 by MD KASSIDY VYAS HECTOR M MD Oct 14, 2018 10:20
[2018-10-14 11:00] VITALS: BP 152/78
--- NOTE | 2018-10-14 12:38 | NUR ---
Discharge Note: [facility] Discharge instructions and discharge home medications reviewed with Patient and Spouseand a copy given. All questions have been answered and understanding verbalized. The following instructions and handouts were given: CP, doxycycline, Culturelle, edema, peripheral edema, pneumonia, post cath Discontinued lines and drains: Peripheral IV intact. Patient discharged to Home or Self Care with Spouse via Wheelchair
== END 2018-10-14 12:35 | disposition home or self-care (01) | DRG 286 ==
LOC: ER 14:14 → 2 SOUTH 15:36
PROVIDERS: ADMIT Internal Medicine; ATTEND Internal Medicine
PROC: 4A023N7 Measurement of Cardiac Sampling and Pressure, Left Heart, Percutaneous Approach (ICD-10-PCS; principal; 2018-10-13)
PROC: B2111ZZ Fluoroscopy of Multiple Coronary Arteries using Low Osmolar Contrast (ICD-10-PCS; 2018-10-13)
PROC: B2151ZZ Fluoroscopy of Left Heart using Low Osmolar Contrast (ICD-10-PCS; 2018-10-13)
DX: I25.10 Atherosclerotic heart disease of native coronary artery without angina pectoris (principal); J18.1 Lobar pneumonia, unspecified organism; I10 Essential (primary) hypertension; E78.00 Pure hypercholesterolemia, unspecified; N40.0 Benign prostatic hyperplasia without lower urinary tract symptoms; K21.9 Gastro-esophageal reflux disease without esophagitis; N28.9 Disorder of kidney and ureter, unspecified; E78.5 Hyperlipidemia, unspecified; Z82.49 Family history of ischemic heart disease and other diseases of the circulatory system; Z95.5 Presence of coronary angioplasty implant and graft; Z87.11 Personal history of peptic ulcer disease
CPT/HCPCS: 36415; 71045; 80048; 80053; 81001; 83605; 83880; 84484; 85025; 85610; 87040; 93005; 93458; 93971; 94640; 96365; 96375; 99152; C1769; C1892; J0696; J1644; J1650; J2250; J3010; J3490; J7620; Q9967; 99285-25

== ENCOUNTER → 2019-01-26 | Outpatient (CLI) | payer MEDICARE ==
[~2019-01-26] MED LIST changes: +DOXY100T PO; +HYDR-3164 PO; +IBUP-1060 PO; +LACT1CAP19 PO; +SULF1TAB24 PO
--- NOTE | 2019-01-26 10:27 | CARD ---
MR#: [id number] Date of Study: 01/26/2019 Ordering Physician: RAGHAV LOPEZ, Referring Physician: RAGHAV LOPEZ, Tech: Luciana Bernal RYLEY APPROVED REPORT EXAM: Two-dimensional and M-mode echocardiogram with Doppler and color Doppler. Other Information Quality : Good INDICATION Cardiac Disease: CAD 2D DIMENSIONS RVDd2.7 (2.9-3.5cm)Left Atrium(2D)3.5 (1.6-4.0cm) IVSd0.7 (0.7-1.1cm)Aortic Root(2D)2.9 (2.0-3.7cm) LVDd4.6 (3.9-5.9cm)LVOT Diameter2.0 (1.8-2.4cm) PWd0.6 (0.7-1.1cm)LVDs3.0 (2.5-4.0cm) FS (%) 34.1 %SV60.6 ml LVEF(%)60.0 (>50%) Aortic Valve AoV Peak Simon.105.1cm/sAoV VTI19.3cm AO Peak GR.4.4mmHgLVOT Peak Simon.89.4cm/s LVOT VTI 16.70cmAO Mean GR.2mmHg KAYLA (VMAX)2.45ow3BMD (VTI)2.72cm2 Mitral Valve MV E Yaifffom46.2cm/sMV DECEL PBDS537kk MV A Ohraloxi94.3cm/sMV XMB79nc E/A Ratio1.1MVA (PHT)4.13cm2 TDI E/Lateral E'8.9E/Medial E'8.3 Tricuspid Valve TR P. Duintcwd872yu/sRAP [id number] TR Peak Gr.69bkShWTAP66utTt Pulmonary Vein S1 Vnwsirbb91.5cm/sD2 Chcglilb79.1cm/s LEFT VENTRICLE The left ventricle is normal size. There is normal left ventricular wall thickness. The left ventricu lar systolic function is normal. The Ejection Fraction is 55-60%. There is normal LV segmental wall m otion. RIGHT VENTRICLE The right ventricle is normal size. The right ventricular systolic function is normal. ATRIA The left atrium size is normal. The right atrium size is normal. The interatrial septum is intact wit h no evidence for an atrial septal defect or patent foramen ovale as noted on 2-D or Doppler imaging. AORTIC VALVE The aortic valve is calcified but opens well. Doppler and Color Flow revealed no significant aortic r egurgitation. There is no significant aortic valvular stenosis. MITRAL VALVE The mitral valve is calcified but opens well. There is no evidence of mitral valve prolapse. There is no mitral valve stenosis. Doppler and Color-flow revealed mild mitral regurgitation. TRICUSPID VALVE The tricuspid valve is normal in structure and function. Doppler and Color Flow revealed mild tricusp id regurgitation. The PA pressure was estimated at 23 mmHg. There is no tricuspid valve stenosis. PULMONIC VALVE The pulmonary valve is normal in structure and function. Doppler and Color Flow revealed mild to mode rate pulmonic valvular regurgitation. There is no pulmonic valvular stenosis. GREAT VESSELS The aortic root is normal in size. The ascending aorta is normal in size. The IVC is normal in size a nd collapses >50% with inspiration. PERICARDIAL EFFUSION There is no evidence of significant pericardial effusion. Critical Notification Critical Value: No <Conclusion> The left ventricular systolic function is normal. The Ejection Fraction is 55-60%. There is normal LV segmental wall motion. Mild mitral regurgitation. Mild tricuspid regurgitation. The PA pressure was estimated at 23 mmHg. There is no evidence of significant pericardial effusion. Signed by : Dionte Hedrick, Electronically Approved : 01/26/2019 10:26:48
== END | disposition home or self-care (01) ==
LOC: ECHO 09:17
PROVIDERS: ATTEND Internal Medicine Cardiovascular Disease
DX: I08.8 Other rheumatic multiple valve diseases (principal); I25.10 Atherosclerotic heart disease of native coronary artery without angina pectoris
CPT/HCPCS: 93306

== ENCOUNTER 2019-01-28 12:09 | Emergency (ER) | payer MEDICARE ==
[~2019-01-28] VITALS: Ht 177.8 cm; Wt 75.3 kg
[~2019-01-28 12:09] MED LIST changes: -HYDR-3164 PO; -IBUP-1060 PO; -SULF1TAB24 PO
[2019-01-28 12:56] LABS: BILIRUBIN,URINE NEGATIVE (NEG); CLARITY,URINE CLEAR; COLOR,URINE YELLOW; NITRITE,URINE NEGATIVE (NEG); PROTEIN,URINE NEGATIVE (NEG-TRACE)
[2019-01-28 13:04] LABS: BACTERIA,URINE MANY /HPF (0-FEW); RBC,URINE TNTC /HPF (0-2); WBC,URINE 20-40 /HPF (0-4)
[2019-01-28 13:05] LABS: SQUAMOUS EPITHELIAL CELL,UR FEW /LPF
[2019-01-28 13:17] LABS: BASO % 0 % (0-3); EOS % 0 % (0-3); HEMATOCRIT 38.9 % (39.0-53.0); HEMOGLOBIN 13.2 g/dL (13.0-17.5); LYMPH # 0.6 x10^3/uL (1.0-4.8); LYMPH % 5 % (24-48); MEAN CORPUSCULAR HEMOGLOBIN 33 pg (25-35); MEAN CORPUSCULAR HGB CONC 34 g/dL (31-37); MEAN CORPUSCULAR VOLUME 96 fL (79-100); MONO # 0.9 x10^3/uL (0.0-1.1); MONO % 8 % (0-9); NEUT # 9.4 x10^3uL (1.8-7.7); NEUT % 86 % (31-73); PLATELET COUNT 222 x10^3/uL (140-400); RED BLOOD COUNT 4.05 x10^6/uL (4.30-5.70); RED CELL DISTRIBUTION WIDTH 15.9 % (11.5-14.5); WHITE BLOOD COUNT 10.8 x10^3/uL (4.0-11.0)
--- NOTE | 2019-01-28 13:25 | RAD ---
Scrotal ultrasound, 01/28/2019: HISTORY: Testicular pain The right testicle measures 3.2 x 2.5 x 1.9 cm while the left testicle measures 2.9 x 2.6 x 1.9 cm. No testicular mass is evident. There is symmetric blood flow in both testicles. No epididymal abnormality is seen. There are bilateral varicoceles. There are small bilateral hydroceles. IMPRESSION: 1. No testicular abnormality is detected. 2. Bilateral varicoceles. 2. Small bilateral hydroceles. Electronically signed by: Juan C Gonzalez MD (01/28/2019 1:22 PM) [facility]
[2019-01-28 13:26] LABS: PROTHROMBIN TIME PATIENT 13.7 SEC (11.7-14.0)
[2019-01-28 13:33] LABS: CALCIUM 9.6 mg/dL (8.5-10.1); CREATININE 1.2 mg/dL (0.7-1.3); GFR 70.9
[2019-01-28 13:39] LABS: ALBUMIN 3.5 g/dL (3.4-5.0); ALBUMIN/GLOBULIN RATIO 0.8 (1.0-1.7); TOTAL BILIRUBIN 0.9 mg/dL (0.2-1.0); TOTAL PROTEIN 7.8 g/dL (6.4-8.2)
[2019-01-28 14:51] LABS: % EOS 1 % (0-5); % LYMPHS 5 % (24-48); % MONOS 15 % (0-10); % SEGS 79 % (35-66); PLT ESTIMATE ADEQUATE (ADEQUATE); TOXIC VACUOLATION SLIGHT
[2019-01-28] MEDS ORDERED: IBUP-1060 PO (14:54)
[2019-01-28] MEDS ORDERED: HYDR-3164 PO (14:54)
[2019-01-28] MEDS ORDERED: SULF1TAB24 PO (14:54)
[2019-01-28] MEDS ORDERED: cefTRIAXone IV Push 1 GM VIAL. IVP ONE (15:00)
--- NOTE | 2019-01-28 15:05 | PHYS DOC ---
Past Medical History Past Medical History: GERD, High Cholesterol, Heart Disease, Hypertension, Other Additional Past Medical Histor: ENLARGED PROSTATE Past Surgical History: Other Additional Past Surgical Histo: Cardiac STENTS x2. Alcohol Use: None Drug Use: None Adult General Chief Complaint Chief Complaint: BLOOD IN URINE [facility] Patient is a 78 year old male who presents with complaining of bloody urine. Patient complaining of one episode of hematuria that started 1 hour prior to arrival to ER with bright red blood. Patient states he had history of BPH with a small amount of bloody urine today but today had complete blood at the end of his urination. Patient complaining of left testicular pain for the last 3 days as a constant pain without injury or purulent discharge or history of the same pain. Patient denies fever and chills, abdominal pain, nausea and vomiting, other bleeding. Review of Systems Review of Systems Constitutional: Denies fever or chills [] Eyes: Denies change in visual acuity, redness, or eye pain [] HENT: Denies nasal congestion or sore throat [] Respiratory: Denies cough or shortness of breath [] Cardiovascular: No additional information not addressed in HPI [] GI: Denies abdominal pain, nausea, vomiting, bloody stools or diarrhea [] : Denies dysuria, reports hematuria [] Musculoskeletal: Denies back pain or joint pain [] Integument: Denies rash or skin lesions [] Neurologic: Denies headache, focal weakness or sensory changes [] Endocrine: Denies polyuria or polydipsia [] All other systems were reviewed and found to be within normal limits, except as documented in this note. Allergies Allergies Allergies Coded Allergies Type Severity Reaction Last Updated Verified No Known Drug Allergies 06/15/16 No Physical Exam Physical Exam Constitutional: Well developed, well nourished, mild distress, non-toxic appearance. [] HENT: Normocephalic, atraumatic, oropharynx moist. Eyes: PERRLA, EOMI, conjunctiva normal, no discharge. [] Neck: Normal range of motion, no tenderness, supple, no stridor. [] Cardiovascular:Heart rate regular rhythm, no murmur [] Lungs & Thorax: Bilateral breath sounds clear to auscultation [] Abdomen: Bowel sounds normal, soft, no tenderness, no masses, no pulsatile masses. Genital exam with present of group leader showed no testicular mass or discharge, tenderness of left testicle.[] Skin: Warm, dry, no erythema, no rash. [] Back: No tenderness, no CVA tenderness. [] Extremities: No tenderness, no cyanosis, no clubbing, ROM intact, no edema. [] Neurologic: Alert and oriented X 3, normal motor function, normal sensory function, no focal deficits noted. [] Psychologic: Affect normal, judgement normal, mood normal. [] Current Patient Data Vital Signs Vital Signs Date Time Temp Pulse Resp B/P (MAP) Pulse Ox O2 Delivery O2 Flow Rate FiO2 01/28/19 12:40 97.3 94 14 120/96 (104) 99 Room Air 97.3 Lab Values Laboratory Tests Test 01/28/19 12:40 01/28/19 13:10 Urine Collection Type Unknown Urine Color Yellow Urine Clarity Clear Urine pH 7.0 Urine Specific [place] 1.015 Urine Protein Negative mg/dL (NEG-TRACE) Urine Glucose (UA) Negative mg/dL (NEG) Urine Ketones (Stick) Negative mg/dL (NEG) Urine Blood Large (NEG) Urine Nitrite Negative (NEG) Urine Bilirubin Negative (NEG) Urine Urobilinogen Dipstick 1.0 mg/dL (0.2 mg/dL) Urine Leukocyte Esterase Large (NEG) Urine RBC Tntc /HPF (0-2) Urine WBC 20-40 /HPF (0-4) Urine Squamous Epithelial Cells Few /LPF Urine Bacteria Many /HPF (0-FEW) White Blood Count 10.8 x10^3/uL (4.0-11.0) Red Blood Count 4.05 x10^6/uL (4.30-5.70) L Hemoglobin 13.2 g/dL (13.0-17.5) Hematocrit 38.9 % (39.0-53.0) L Mean Corpuscular Volume 96 fL (79-100) Mean Corpuscular Hemoglobin 33 pg (25-35) Mean Corpuscular Hemoglobin Concent 34 g/dL (31-37) Red Cell Distribution Width 15.9 % (11.5-14.5) H Platelet Count 222 x10^3/uL (140-400) Neutrophils (%) (Auto) 86 % (31-73) H Lymphocytes (%) (Auto) 5 % (24-48) L Monocytes (%) (Auto) 8 % (0-9) Eosinophils (%) (Auto) 0 % (0-3) Basophils (%) (Auto) 0 % (0-3) Neutrophils # (Auto) 9.4 x10^3uL (1.8-7.7) H Lymphocytes # (Auto) 0.6 x10^3/uL (1.0-4.8) L Monocytes # (Auto) 0.9 x10^3/uL (0.0-1.1) Eosinophils # (Auto) 0.0 x10^3/uL (0.0-0.7) Basophils # (Auto) 0.0 x10^3/uL (0.0-0.2) Platelet Estimate Pending Prothrombin Time 13.7 SEC (11.7-14.0) Prothrombin Time INR 1.1 (0.8-1.1) PTT 28 SEC (24-38) Sodium Level 140 mmol/L (136-145) Potassium Level 4.0 mmol/L (3.5-5.1) Chloride Level 103 mmol/L (98-107) Carbon Dioxide Level 26 mmol/L (21-32) Anion Gap 11 (6-14) Blood Urea Nitrogen 16 mg/dL (8-26) Creatinine 1.2 mg/dL (0.7-1.3) Estimated GFR (Cockcroft-Gault) 70.9 BUN/Creatinine Ratio 13 (6-20) Glucose Level 115 mg/dL (70-99) H Calcium Level 9.6 mg/dL (8.5-10.1) Total Bilirubin 0.9 mg/dL (0.2-1.0) Aspartate Amino Transferase (AST) 29 U/L (15-37) Alanine Aminotransferase (ALT) 44 U/L (16-63) Alkaline Phosphatase 85 U/L (46-116) Total Protein 7.8 g/dL (6.4-8.2) Albumin 3.5 g/dL (3.4-5.0) Albumin/Globulin Ratio 0.8 (1.0-1.7) L Laboratory Tests 01/28/19 13:10 Laboratory Tests 01/28/19 13:10 EKG EKG [] Radiology/Procedures Radiology/Procedures [] Course & Med Decision Making Course & Med Decision Making Pertinent Labs and Imaging studies reviewed. (See chart for details) Evaluation of patient in ER showed 78-year-old male patient with complaining of hematuria prior to arrival to ER and left testicle pain. Patient had unremarkable physical exam for left testicular tenderness is testicular ultrasound showed mild facet and varicocele bilaterally without mass. Labs showed UTI with hematuria. Patient did not want to have pain medication while he was in ER. Plan discharge patient home to diagnose of hemorrhagic cystitis and orchitis. Dragon Disclaimer Dragon Disclaimer This electronic medical record was generated, in whole or in part, using a voice recognition dictation system. Departure Departure Impression: Primary Impression: Urinary tract infection Additional Impressions: Hematuria Orchitis of left testicle Varicocele Hydrocele in adult Disposition: HOME, SELF-CARE (at 1450) Condition: STABLE Referrals: ROSE SAMSON MD (PCP) Patient Instructions: Hematuria, Adult, Orchitis, Urinary Tract Infection Additional Instructions: Drink plenty of liquids Follow-up with your primary care physician in 3-5 days Return to ER if not getting better Scripts Hydrocodone/Apap 5-325 (NORCO 5-325 TABLET) 1 Each Tablet 1 TAB PO PRN Q6HRS PRN for PAIN, #10 TAB 0 Refills Prov: CHELSEA CHRISTENSEN MD 01/28/19 Ibuprofen (IBUPROFEN) 800 Mg Tablet 800 MG PO PRN Q8HRS PRN for INFLAMMATION, #20 TAB Prov: CHELSEA CHRISTENSEN MD 01/28/19 Sulfamethoxazole/Trimethoprim (BACTRIM DS TABLET) 1 Each Tablet 1 TAB PO BID for infection, #14 TAB Prov: CHELSEA CHRISTENSEN MD 01/28/19 Problem Qualifiers Primary Impression: Urinary tract infection Urinary tract infection type: acute cystitis Hematuria presence: with hematuria Qualified Codes: N30.01 - Acute cystitis with hematuria Additional Impressions: Hematuria Hematuria type: gross Qualified Codes: R31.0 - Gross hematuria CHELSEA CHRISTENSEN MD Jan 28, 2019 15:05
[2019-01-28 15:07] VITALS: BP 157/90
== END 2019-01-28 15:15 | disposition home or self-care (01) ==
LOC: ER 12:09
DX: N30.01 Acute cystitis with hematuria (principal); N45.2 Orchitis; I86.1 Scrotal varices; N43.3 Hydrocele, unspecified; K21.9 Gastro-esophageal reflux disease without esophagitis; E78.00 Pure hypercholesterolemia, unspecified; I11.9 Hypertensive heart disease without heart failure; N40.1 Benign prostatic hyperplasia with lower urinary tract symptoms; Z95.5 Presence of coronary angioplasty implant and graft
CPT/HCPCS: 36415; 76870; 80053; 81001; 85007; 85025; 85610; 85730; 87086; 96374; 99285; J0696

== ENCOUNTER 2019-07-13 12:48 | Observation (INO) | payer MEDICARE ==
[~2019-07-13] VITALS: Ht 182.9 cm; Wt 75.8 kg
[~2019-07-13 12:48] MED LIST changes: +HYDR-3164 PO; +IBUP-1060 PO; +SULF1TAB24 PO
--- NOTE | 2019-07-13 13:29 | PHYS DOC ---
Past Medical History Past Medical History: CAD, GERD, High Cholesterol, Heart Disease, Hypertension, Other Additional Past Medical Histor: ENLARGED PROSTATE Past Surgical History: Other Additional Past Surgical Histo: Cardiac STENTS x2. Alcohol Use: None Drug Use: None Adult General Chief Complaint Chief Complaint: CHEST PAIN HPI HPI Patient is a 79-year-old -[place] male, with a history of hypertension, hyperlipidemia, prior coronary disease, who presents to the emergency department for evaluation. He states he had some chest discomfort yesterday, which resolved with the Tylenol, but his chest pain recurred and this morning. His chest pain is described as an ache in the center of his chest, without radiation. The pain is not worse with movement, deep breathing, eating, or physical exertion. It is not associated with nausea, vomiting, shortness of breath, or diaphoresis. However the patient states he has had prior cardiac events, and his current chest pain feels somewhat similar to his prior cardiac pain. There are no alleviating or exacerbating factors to his symptoms otherwise. HEART score is 6. Review of Systems Review of Systems Constitutional: Denies fever or chills [] Eyes: Denies change in visual acuity, redness, or eye pain [] HENT: Denies nasal congestion or sore throat [] Respiratory: Denies cough or shortness of breath [] Cardiovascular: No additional information not addressed in HPI [] GI: Denies abdominal pain, nausea, vomiting, bloody stools or diarrhea [] : Denies dysuria or hematuria [] Musculoskeletal: Denies back pain or joint pain [] Integument: Denies rash or skin lesions [] Neurologic: Denies headache, focal weakness or sensory changes [] Endocrine: Denies polyuria or polydipsia [] All other systems were reviewed and found to be within normal limits, except as documented in this note. Current Medications Current Medications Current Medications Medications (Trade) Dose Ordered Sig/Narcisa Start Time Stop Time Status Last Admin Dose Admin Aspirin (Children'S Aspirin) 324 mg 1X ONCE 07/13/19 13:30 07/13/19 13:31 DC 07/13/19 13:30 324 MG Morphine Sulfate (Morphine Sulfate) 2 mg PRN Q15MIN PRN 07/13/19 13:30 07/14/19 13:29 07/13/19 13:36 2 MG Nitroglycerin (Nitro-Bid Oint) 1 inch 1X ONCE 07/13/19 13:30 07/13/19 13:31 DC 07/13/19 13:30 1 INCH Allergies Allergies Allergies Coded Allergies Type Severity Reaction Last Updated Verified No Known Drug Allergies 06/15/16 No Physical Exam Physical Exam PHYSICAL EXAM: CONSTITUTIONAL: Well developed, well nourished HEAD: normocephalic, atraumatic EENT: PERRL, EOMI. Conjunctivae normal color, sclerae non-icteric; moist mucous membranes. NECK: Supple, non-tender; no meningismus. LUNGS: Lungs CTA, breathing even and unlabored. Normal air movement. HEART: Regular rate and rhythm, no murmur CHEST: No deformity; non-tender ABDOMEN: The abdomen is soft, and non-tender, no masses or bruits. EXTREM: Normal ROM; no deformity, no calf tenderness. Normal pulses palpable in all extremities. There is no pedal edema. SKIN: No rash; no diaphoresis NEURO: Alert; normal speech and cognition; CN's grossly intact; strength grossly intact without focal deficit. BACK: No CVA TTP. Current Patient Data Vital Signs Vital Signs Date Time Temp Pulse Resp B/P (MAP) Pulse Ox O2 Delivery O2 Flow Rate FiO2 07/13/19 13:36 19 97 Room Air 07/13/19 13:30 62 145/73 Lab Values Laboratory Tests Test 07/13/19 13:30 White Blood Count 7.1 x10^3/uL (4.0-11.0) Red Blood Count 4.25 x10^6/uL (4.30-5.70) L Hemoglobin 14.2 g/dL (13.0-17.5) Hematocrit 42.0 % (39.0-53.0) Mean Corpuscular Volume 99 fL (79-100) Mean Corpuscular Hemoglobin 34 pg (25-35) Mean Corpuscular Hemoglobin Concent 34 g/dL (31-37) Red Cell Distribution Width 13.4 % (11.5-14.5) Platelet Count 214 x10^3/uL (140-400) Neutrophils (%) (Auto) 62 % (31-73) Lymphocytes (%) (Auto) 24 % (24-48) Monocytes (%) (Auto) 12 % (0-9) H Eosinophils (%) (Auto) 2 % (0-3) Basophils (%) (Auto) 1 % (0-3) Neutrophils # (Auto) 4.4 x10^3/uL (1.8-7.7) Lymphocytes # (Auto) 1.7 x10^3/uL (1.0-4.8) Monocytes # (Auto) 0.8 x10^3/uL (0.0-1.1) Eosinophils # (Auto) 0.2 x10^3/uL (0.0-0.7) Basophils # (Auto) 0.1 x10^3/uL (0.0-0.2) Prothrombin Time 12.5 SEC (11.7-14.0) Prothrombin Time INR 1.0 (0.8-1.1) Sodium Level 141 mmol/L (136-145) Potassium Level 4.3 mmol/L (3.5-5.1) Chloride Level 104 mmol/L (98-107) Carbon Dioxide Level 30 mmol/L (21-32) Anion Gap 7 (6-14) Blood Urea Nitrogen 15 mg/dL (8-26) Creatinine 1.1 mg/dL (0.7-1.3) Estimated GFR (Cockcroft-Gault) 78.1 BUN/Creatinine Ratio 14 (6-20) Glucose Level 93 mg/dL (70-99) Calcium Level 9.5 mg/dL (8.5-10.1) Total Bilirubin 0.6 mg/dL (0.2-1.0) Aspartate Amino Transferase (AST) 24 U/L (15-37) Alanine Aminotransferase (ALT) 20 U/L (16-63) Alkaline Phosphatase 75 U/L (46-116) Troponin I Quantitative < 0.017 ng/mL (0.000-0.055) SL-Mls-L-Type Natriuretic Peptide 79 pg/mL (0-449) Total Protein 8.1 g/dL (6.4-8.2) Albumin 3.9 g/dL (3.4-5.0) Albumin/Globulin Ratio 0.9 (1.0-1.7) L Lipase 138 U/L (73-393) Laboratory Tests 07/13/19 13:30 Laboratory Tests 07/13/19 13:30 EKG EKG Normal sinus rhythm at a rate of 63 beats for minute, left axis deviation, normal intervals, low voltage is present. There are no acute ischemic ST/T changes. Nonspecific changes are present.[] Radiology/Procedures Radiology/Procedures PROCEDURE: PORTABLE CHEST 1V PORTABLE CHEST 1V History: Chest pain Comparison: 10/11/2018 Findings: Single view of the chest is submitted. There is no infiltrate, pneumothorax, or effusion. The pericardial cardiac silhouette is within normal limits in size. Impression: 1. There is no radiographic evidence of acute cardiopulmonary disease.[] Course & Med Decision Making Course & Med Decision Making Pertinent Labs and Imaging studies reviewed. (See chart for details) [] 2:50 PM: The patient's condition remains stable. I spoke with the hospitalist, who accepted the patient to the hospital for further evaluation and treatment. Dragon Disclaimer Dragon Disclaimer This electronic medical record was generated, in whole or in part, using a voice recognition dictation system. Departure Departure Impression: Primary Impression: Chest pain Additional Impression: CAD (coronary artery disease) Disposition: ADMITTED INPATIENT Admitting Physician: INNA Condition: STABLE Referrals: ROSE SAMSON MD (PCP) Problem Qualifiers DE VELASQUEZ MD Jul 13, 2019 13:29
[2019-07-13] MEDS ORDERED: MORPHINE SULFATE 2 MG/ML VIAL. IV/SQ PRN (13:30)
[2019-07-13] MEDS ORDERED: ASPIRIN CHEWABLE 81 MG TABLET. PO ONE (13:30)
[2019-07-13] MEDS ORDERED: NITROGLYCERIN OINT 1 GM PACKET. TP ONE (13:30)
[2019-07-13 13:42] LABS: BASO # 0.1 x10^3/uL (0.0-0.2); BASO % 1 % (0-3); EOS # 0.2 x10^3/uL (0.0-0.7); EOS % 2 % (0-3); HEMOGLOBIN 14.2 g/dL (13.0-17.5); LYMPH # 1.7 x10^3/uL (1.0-4.8); LYMPH % 24 % (24-48); MEAN CORPUSCULAR HEMOGLOBIN 34 pg (25-35); MEAN CORPUSCULAR HGB CONC 34 g/dL (31-37); MEAN CORPUSCULAR VOLUME 99 fL (79-100); MONO # 0.8 x10^3/uL (0.0-1.1); MONO % 12 % (0-9); NEUT # 4.4 x10^3/uL (1.8-7.7); NEUT % 62 % (31-73); PLATELET COUNT 214 x10^3/uL (140-400); RED BLOOD COUNT 4.25 x10^6/uL (4.30-5.70); RED CELL DISTRIBUTION WIDTH 13.4 % (11.5-14.5); WHITE BLOOD COUNT 7.1 x10^3/uL (4.0-11.0)
--- NOTE | 2019-07-13 13:42 | RAD ---
PORTABLE CHEST 1V History: Chest pain Comparison: 10/11/2018 Findings: Single view of the chest is submitted. There is no infiltrate, pneumothorax, or effusion. The pericardial cardiac silhouette is within normal limits in size. Impression: 1. There is no radiographic evidence of acute cardiopulmonary disease. Electronically signed by: Franklin Hough MD (07/13/2019 1:40 PM) [id number]
[2019-07-13 13:52] LABS: PROTHROMBIN TIME PATIENT 12.5 SEC (11.7-14.0)
--- NOTE | 2019-07-13 13:52 | EKG ---
[facility] [address] [place] [address] Test Date: 2019-07-13 Test Time: 12:57:24 Pat Name: KATHLEEN LUU Department: Room: Gender: M Senior Test Engineer: : 1940 Requested By: DE VELASQUEZ Order Number: [id number] Reading MD: Dionte Hedrick Measurements Intervals [place] Rate: 63 P: 55 ME: 168 QRS: -5 QRSD: 84 T: -19 QT: 364 QTc: 375 Interpretive Statements SINUS RHYTHM LEFTWARD AXIS LOW LIMB LEAD VOLTAGE Electronically Signed On 07-13-2019 13:53:00 PHP MYSQL DEVELOPER by Dionte Hedrick
[2019-07-13 13:55] LABS: CALCIUM 9.5 mg/dL (8.5-10.1); CREATININE 1.1 mg/dL (0.7-1.3); GFR 78.1; POTASSIUM 4.3 mmol/L (3.5-5.1)
[2019-07-13 14:02] LABS: ALBUMIN 3.9 g/dL (3.4-5.0); ALBUMIN/GLOBULIN RATIO 0.9 (1.0-1.7); TOTAL BILIRUBIN 0.6 mg/dL (0.2-1.0); TOTAL PROTEIN 8.1 g/dL (6.4-8.2)
--- NOTE | 2019-07-13 15:17 | PDOC1 ---
History and Physical Date of Admission Date of Admission DATE: 07/13/19 TIME: 14:52 Identification/Chief Complaint Chief Complaint Chest pain Source Source: Patient History of Present Illness History of Present Illness Mr Thompson is a 78 yo male w/ PMHx HTN, CAD, GERD, PUD, HLD, BPH who presents with mid chest pressure for the last 2 days that comes and goes. Patient states that he dose not know what triggered this pressure but he has been under some stress the past 4 days. He also has a great-grandchild due very soon.. Patient denies shortness of air, nausea, vomiting, fever. Patient has a history of stents [address] Piña. Patient states he is also concerned that he's been having worsening extremity edema in his ankles, R>L. BNP negative. In ED found with negative troponin, EKG left axis, no STEMI. CXR no abnormalities Past Medical History Cardiovascular: CAD, HTN Pulmonary: No pertinent hx GI: No pertinent hx Heme/Onc: No pertinent hx Hepatobiliary: No pertinent hx Psych: No pertinent hx Renal/: Benign prostatic enlarg. Past Surgical History Past Surgical History: Other, No pertinent history Family History Family History: Hypertension Social History Smoke: No ALCOHOL: none Drugs: None Current Medications Current Medications Current Medications Aspirin (Children'S Aspirin) 324 mg 1X ONCE PO Last administered on 07/13/19at 13:30; Start 07/13/19 at 13:30; Stop 07/13/19 at 13:31; Status DC Morphine Sulfate (Morphine Sulfate) 2 mg PRN Q15MIN PRN IV/SQ PAIN GREATER THAN 3/10 Last administered on 07/13/19at 13:36; Start 07/13/19 at 13:30; Stop 07/14/19 at 13:29 Nitroglycerin (Nitro-Bid Oint) 1 inch 1X ONCE TP Last administered on 07/13/19at 13:30; Start 07/13/19 at 13:30; Stop 07/13/19 at 13:31; Status DC Active Scripts Active [place] 5-325 Tablet (Acetaminophen/Hydrocodone Bitart) 1 Each Tablet 1 Tab PO PRN Q6HRS PRN Ibuprofen 800 Mg Tablet 800 Mg PO PRN Q8HRS PRN Bactrim Ds Tablet (Sulfamethoxazole/Trimethoprim) 1 Each Tablet 1 Tab PO BID Doxycycline Hyclate 100 Mg Tablet 1 Tab PO BID 3 Days Culturelle (Lactobacillus Rhamnosus Gg) 1 Each Cap.sprink 1 Cap PO BID 7 Days Protonix (Pantoprazole Sodium) 20 Mg Tablet.dr 2 Tab PO DAILY Carafate (Sucralfate) 1 Gm Tablet 1 Tab PO QID Metoprolol Tartrate 25 Mg Tablet 12.5 Mg PO BID Lisinopril 5 Mg Tablet 5 Mg PO DAILY Atorvastatin Calcium 20 Mg Tablet 20 Mg PO QHS Aspirin Ec (Aspirin) 81 Mg Tablet.dr 81 Mg PO DAILYWBKFT Reported Prednisolone Acetate 5 Ml Drops.susp 1 Drop EACHEYE Q2HR Multivitamins (Multivitamin) 1 Each Tablet 1 Tab PO DAILY D3-50 (Cholecalciferol (Vitamin D3)) 50,000 Unit Capsule 50,000 Unit PO DAILY Clopidogrel (Clopidogrel Bisulfate) 75 Mg Tablet 1 Tab PO DAILY Latanoprost 2.5 Ml Drops 1 Drop EACHEYE QHS Dorzolamide Hcl 10 Ml Drops 1 Drop EACHEYE TID Tamsulosin Hcl 0.4 Mg Cap.er.24h 0.4 Mg PO BID Finasteride 5 Mg Tablet 5 Mg PO DAILY Combigan Eye Drops (Brimonidine Tartrate/Timolol) 5 Ml Drops 5 Ml OP BID Allergies Allergies: Coded Allergies: No Known Drug Allergies (Unverified , 06/15/16) ROS General: No: Chills, Night Sweats, Fatigue, Malaise, Appetite, Other PSYCHOLOGICAL ROS: No: Anxiety, Behavioral Disorder, Concentration difficultie, Decreased libido, Depression, Disorientation, Hallucinations, Hostility, Irritablity, Memory difficulties, Mood Swings, Obsessive thoughts, Physical abuse, Sexual abuse, Sleep disturbances, Suicidal ideation, Other Eyes: No Blurry vision, No Decreased vision, No Double vision, No Dry eyes, No Excessive tearing, No Eye Pain, No Itchy Eyes, No Loss of vision, No Photophobia, No Scotomata, No Uses contacts, No Uses glasses, No Other HEENT: No: Heacaches, Visual Changes, Hearing change, Nasal congestion, Nasal discharge, Oral lesions, Sinus pain, Sore Throat, Epistaxis, Sneezing, Snoring, Tinnitus, Vertigo, Vocal changes, Other ALLERGY AND IMMUNOLOGY: No: Hives, Insect Bite Sensitivity, Itchy/Watery Eyes, Nasal Congestion, Post Nasal Drip, Seasonal Allergies, Other Hematological and Lymphatic: No: Bleeding Problems, Blood Clots, Blood Transfusions, Brusing, Night Sweats, Pallor, Swollen Lymph Nodes, Other ENDOCRINE: No: Breast Changes, Galactorrhea, Hair Pattern Changes, Hot Flashes, Malaise/lethargy, Mood Swings, Palpitations, Polydipsia/polyuria, Skin Changes, Temperature Intolerance, Unexpected Weight Changes, Other Breast: No New/Changing Breast Lumps, No Nipple changes, No Nipple discharge, No Other Respiratory: No: Cough, Hemoptysis, Orthopnea, Pleuritic Pain, Shortness of breath, SOB with excertion, Sputum Changes, Stridor, Tachypnea, Wheezing, Other Cardiovascular: yes Chest Pain, yes Edema; No Palpitations, No Orthopnea, No Paroxysmal Noc. Dyspnea, No Lt Headedness, No Other Gastrointestinal: No Nausea, No Vomiting, No Abdominal Pain, No Diarrhea, No Constipation, No Melena, No Hematochezia, No Other Genitourinary: No Dysuria, No Frequency, No Incontinence, No Hematuria, No Retention, No Discharge, No Urgency, No Pain, No Flank Pain, No Other, No , No , No , No , No , No , No Musculoskeletal: No Gait Disturbance, No Joint Pain, No Joint Stiffness, No Joint Swelling, No Muscle Pain, No Muscular Weakness, No Pain In:, No Swelling In:, No Other Neurological: No Behavorial Changes, No Bowel/Bladder ControlChng, No Confusion, No Dizziness, No Gait Disturbance, No Headaches, No Impaired Coord/balance, No Memory Loss, No Numbness/Tingling, No Seizures, No Speech Problems, No Tremors, No Visual Changes, No Weakness, No Other Skin: No Dry Skin, No Eczema, No Hair Changes, No Lumps, No Mole Changes, No Mottling, No Nail Changes, No Pruritus, No Rash, No Skin Lesion Changes, No Other, No Acne Physical Exam General: Alert, Oriented X3, Cooperative, No acute distress HEENT: Atraumatic, PERRLA, EOMI, Mucous membr. moist/pink Lungs: Clear to auscultation, Normal air movement Heart: S1S2, RRR, no thrills, no rubs, no gallops, no murmurs Abdomen: Normal bowel sounds, Soft, No tenderness, No hepatosplenomegaly, No masses Extremities: No clubbing, No cyanosis, No edema, Normal pulses, No tenderness/swelling Skin: No rashes, No breakdown, No significant lesion Neuro: Normal gait, Normal speech, Strength at 5/5 X4 ext, Normal tone, Sensation intact, Cranial nerves 3-12 NL, Reflexes 2+ Psych/Mental Status: Mental status NL, Mood NL Vitals Vitals Vital Signs Date Time Temp Pulse Resp B/P (MAP) Pulse Ox O2 Delivery O2 Flow Rate FiO2 07/13/19 13:36 19 97 Room Air 07/13/19 13:30 62 145/73 Labs Labs Laboratory Tests Test 07/13/19 13:30 White Blood Count 7.1 x10^3/uL (4.0-11.0) Red Blood Count 4.25 x10^6/uL (4.30-5.70) Hemoglobin 14.2 g/dL (13.0-17.5) Hematocrit 42.0 % (39.0-53.0) Mean Corpuscular Volume 99 fL (79-100) Mean Corpuscular Hemoglobin 34 pg (25-35) Mean Corpuscular Hemoglobin Concent 34 g/dL (31-37) Red Cell Distribution Width 13.4 % (11.5-14.5) Platelet Count 214 x10^3/uL (140-400) Neutrophils (%) (Auto) 62 % (31-73) Lymphocytes (%) (Auto) 24 % (24-48) Monocytes (%) (Auto) 12 % (0-9) Eosinophils (%) (Auto) 2 % (0-3) Basophils (%) (Auto) 1 % (0-3) Neutrophils # (Auto) 4.4 x10^3/uL (1.8-7.7) Lymphocytes # (Auto) 1.7 x10^3/uL (1.0-4.8) Monocytes # (Auto) 0.8 x10^3/uL (0.0-1.1) Eosinophils # (Auto) 0.2 x10^3/uL (0.0-0.7) Basophils # (Auto) 0.1 x10^3/uL (0.0-0.2) Prothrombin Time 12.5 SEC (11.7-14.0) Prothromb Time International Ratio 1.0 (0.8-1.1) Sodium Level 141 mmol/L (136-145) Potassium Level 4.3 mmol/L (3.5-5.1) Chloride Level 104 mmol/L (98-107) Carbon Dioxide Level 30 mmol/L (21-32) Anion Gap 7 (6-14) Blood Urea Nitrogen 15 mg/dL (8-26) Creatinine 1.1 mg/dL (0.7-1.3) Estimated GFR (Cockcroft-Gault) 78.1 BUN/Creatinine Ratio 14 (6-20) Glucose Level 93 mg/dL (70-99) Calcium Level 9.5 mg/dL (8.5-10.1) Total Bilirubin 0.6 mg/dL (0.2-1.0) Aspartate Amino Transf (AST/SGOT) 24 U/L (15-37) Alanine Aminotransferase (ALT/SGPT) 20 U/L (16-63) Alkaline Phosphatase 75 U/L (46-116) Troponin I Quantitative < 0.017 ng/mL (0.000-0.055) XK-Jyh-P-Type Natriuretic Peptide 79 pg/mL (0-449) Total Protein 8.1 g/dL (6.4-8.2) Albumin 3.9 g/dL (3.4-5.0) Albumin/Globulin Ratio 0.9 (1.0-1.7) Lipase 138 U/L (73-393) Laboratory Tests Test 07/13/19 13:30 White Blood Count 7.1 x10^3/uL (4.0-11.0) Red Blood Count 4.25 x10^6/uL (4.30-5.70) Hemoglobin 14.2 g/dL (13.0-17.5) Hematocrit 42.0 % (39.0-53.0) Mean Corpuscular Volume 99 fL (79-100) Mean Corpuscular Hemoglobin 34 pg (25-35) Mean Corpuscular Hemoglobin Concent 34 g/dL (31-37) Red Cell Distribution Width 13.4 % (11.5-14.5) Platelet Count 214 x10^3/uL (140-400) Neutrophils (%) (Auto) 62 % (31-73) Lymphocytes (%) (Auto) 24 % (24-48) Monocytes (%) (Auto) 12 % (0-9) Eosinophils (%) (Auto) 2 % (0-3) Basophils (%) (Auto) 1 % (0-3) Neutrophils # (Auto) 4.4 x10^3/uL (1.8-7.7) Lymphocytes # (Auto) 1.7 x10^3/uL (1.0-4.8) Monocytes # (Auto) 0.8 x10^3/uL (0.0-1.1) Eosinophils # (Auto) 0.2 x10^3/uL (0.0-0.7) Basophils # (Auto) 0.1 x10^3/uL (0.0-0.2) Prothrombin Time 12.5 SEC (11.7-14.0) Prothromb Time International Ratio 1.0 (0.8-1.1) Sodium Level 141 mmol/L (136-145) Potassium Level 4.3 mmol/L (3.5-5.1) Chloride Level 104 mmol/L (98-107) Carbon Dioxide Level 30 mmol/L (21-32) Anion Gap 7 (6-14) Blood Urea Nitrogen 15 mg/dL (8-26) Creatinine 1.1 mg/dL (0.7-1.3) Estimated GFR (Cockcroft-Gault) 78.1 BUN/Creatinine Ratio 14 (6-20) Glucose Level 93 mg/dL (70-99) Calcium Level 9.5 mg/dL (8.5-10.1) Total Bilirubin 0.6 mg/dL (0.2-1.0) Aspartate Amino Transf (AST/SGOT) 24 U/L (15-37) Alanine Aminotransferase (ALT/SGPT) 20 U/L (16-63) Alkaline Phosphatase 75 U/L (46-116) Troponin I Quantitative < 0.017 ng/mL (0.000-0.055) MR-Bcx-B-Type Natriuretic Peptide 79 pg/mL (0-449) Total Protein 8.1 g/dL (6.4-8.2) Albumin 3.9 g/dL (3.4-5.0) Albumin/Globulin Ratio 0.9 (1.0-1.7) Lipase 138 U/L (73-393) Images Images CXR - No abnormalities 09/2018 Left heart cath: 1. No significant coronary artery stenosis with patent previously placed stents in left anterior descending artery and obtuse marginal branch of left circumflex artery 2. Normal left ventricle systolic function with ejection fraction estimated at 65%. VTE Prophylaxis Ordered VTE Prophylaxis Devices: Yes VTE Pharmacological Prophylaxi: Yes Assessment/Plan Assessment/Plan A/P: Chest pain - could be 2/2 unstable angina, however his left arm pain and improvement with NTG and CAD history and cessation of plavix last year for PUD merit further w/u. Trend trops. cont NTG, ASA, consult cardiology Bilateral LE swelling - better than prior CAD - cont meds PUD - cont PPI, carafate. Stopped plavix previously for GI bleed HLD - cont statin FEN - Cardiac diet PPX - lovenox FULL CODE Dispo - chest pain observation RAIN DAMON MD Jul 13, 2019 15:17
[2019-07-13 16:30] VITALS: BP 118/73
[2019-07-13] MEDS ORDERED: ACET325T9 PO (17:18)
[2019-07-13] MEDS ORDERED: ACETAMINOPHEN 325 MG TABLET. PO SCH (18:00)
[2019-07-13] MEDS ORDERED: ACETAMINOPHEN 325 MG TABLET. PO PRN (18:45)
[2019-07-13 19:48] VITALS: BP 93/52
[2019-07-13] MEDS: METOPROLOL TART IMMED RELEASE 25 MG TABLET. PO SCH (20:39)
[2019-07-13] MEDS: TIMOLOL 0.5% OPHTH SOLUTION 5ML BOTTLE. OU SCH ×2 (20:41→20:42)
[2019-07-13] MEDS: BRIMONIDINE 0.2% OPHTH SOLUTION 5ML BOTTLE. OU SCH (20:42)
[2019-07-13] MEDS ORDERED: ATORVASTATIN CALCIUM 20 MG TABLET PO SCH (21:00)
[2019-07-13] MEDS: DORZOLAMIDE 2% OPHTH SOLUTION 10ML BOTTLE. OU SCH (21:00)
[2019-07-13 22:44] VITALS: BP 114/60
[2019-07-14 02:13] VITALS: BP 100/59
[2019-07-14 06:52] VITALS: BP 126/68
--- NOTE | 2019-07-14 07:33 | PDOC ---
PROGRESS NOTES Chief Complaint Chief Complaint A/P: Chest pain - could be 2/2 unstable angina, however his left arm pain and improvement with NTG and CAD history and cessation of plavix last year for PUD merit further w/u. Trend trops. cont NTG, ASA, consult cardiology Bilateral LE swelling - better than prior CAD - cont meds PUD - cont PPI, carafate. Stopped plavix previously for GI bleed HLD - cont statin FEN - Cardiac diet PPX - lovenox FULL CODE Dispo - chest pain observation History of Present Illness History of Present Illness Mr Thompson is a 78 yo male w/ PMHx HTN, CAD, GERD, PUD, HLD, BPH who presents with mid chest pressure for the last 2 days that comes and goes. Patient states that he dose not know what triggered this pressure but he has been under some stress the past 4 days. He also has a great-grandchild due very soon.. Patient denies shortness of air, nausea, vomiting, fever. Patient has a history of stents [address] Piña. Patient states he is also concerned that he's been having worsening extremity edema in his ankles, R>L. BNP negative. In ED found with negative troponin, EKG left axis, no STEMI. CXR no abnormalities. Seen by cardiology, ruled out for AMI. No further CP, no SOB today. Will have outpatient f/u. Given relaxation exercises. Vitals Vitals Vital Signs Date Time Temp Pulse Resp B/P (MAP) Pulse Ox O2 Delivery O2 Flow Rate FiO2 07/14/19 06:52 97.9 57 16 126/68 (87) 93 Room Air 97.9 Physical Exam General: Alert, Oriented X3, Cooperative, No acute distress Lungs: Clear Abdomen: Normal bowel sounds, Soft, No tenderness, No hepatosplenomegaly, No masses Extremities: No clubbing, No cyanosis, No edema, Normal pulses, No tenderness/swelling Skin: No rashes, No breakdown, No significant lesion Labs LABS Laboratory Tests Test 07/13/19 13:30 07/13/19 18:00 07/13/19 20:54 White Blood Count 7.1 x10^3/uL (4.0-11.0) Red Blood Count 4.25 x10^6/uL (4.30-5.70) Hemoglobin 14.2 g/dL (13.0-17.5) Hematocrit 42.0 % (39.0-53.0) Mean Corpuscular Volume 99 fL (79-100) Mean Corpuscular Hemoglobin 34 pg (25-35) Mean Corpuscular Hemoglobin Concent 34 g/dL (31-37) Red Cell Distribution Width 13.4 % (11.5-14.5) Platelet Count 214 x10^3/uL (140-400) Neutrophils (%) (Auto) 62 % (31-73) Lymphocytes (%) (Auto) 24 % (24-48) Monocytes (%) (Auto) 12 % (0-9) Eosinophils (%) (Auto) 2 % (0-3) Basophils (%) (Auto) 1 % (0-3) Neutrophils # (Auto) 4.4 x10^3/uL (1.8-7.7) Lymphocytes # (Auto) 1.7 x10^3/uL (1.0-4.8) Monocytes # (Auto) 0.8 x10^3/uL (0.0-1.1) Eosinophils # (Auto) 0.2 x10^3/uL (0.0-0.7) Basophils # (Auto) 0.1 x10^3/uL (0.0-0.2) Prothrombin Time 12.5 SEC (11.7-14.0) Prothromb Time International Ratio 1.0 (0.8-1.1) Sodium Level 141 mmol/L (136-145) Potassium Level 4.3 mmol/L (3.5-5.1) Chloride Level 104 mmol/L (98-107) Carbon Dioxide Level 30 mmol/L (21-32) Anion Gap 7 (6-14) Blood Urea Nitrogen 15 mg/dL (8-26) Creatinine 1.1 mg/dL (0.7-1.3) Estimated GFR (Cockcroft-Gault) 78.1 BUN/Creatinine Ratio 14 (6-20) Glucose Level 93 mg/dL (70-99) Calcium Level 9.5 mg/dL (8.5-10.1) Total Bilirubin 0.6 mg/dL (0.2-1.0) Aspartate Amino Transf (AST/SGOT) 24 U/L (15-37) Alanine Aminotransferase (ALT/SGPT) 20 U/L (16-63) Alkaline Phosphatase 75 U/L (46-116) Troponin I Quantitative < 0.017 ng/mL (0.000-0.055) < 0.017 ng/mL (0.000-0.055) < 0.017 ng/mL (0.000-0.055) CN-Thm-D-Type Natriuretic Peptide 79 pg/mL (0-449) Total Protein 8.1 g/dL (6.4-8.2) Albumin 3.9 g/dL (3.4-5.0) Albumin/Globulin Ratio 0.9 (1.0-1.7) Lipase 138 U/L (73-393) Assessment and Plan Assessmemt and Plan Problems Medical Problems: (1) CAD (coronary artery disease) Status: Acute (2) Chest pain Status: Acute Comment Review of Relevant I have reviewed the following items khoa (where applicable) has been applied. Labs Laboratory Tests Test 07/13/19 13:30 07/13/19 18:00 07/13/19 20:54 White Blood Count 7.1 x10^3/uL (4.0-11.0) Red Blood Count 4.25 x10^6/uL (4.30-5.70) Hemoglobin 14.2 g/dL (13.0-17.5) Hematocrit 42.0 % (39.0-53.0) Mean Corpuscular Volume 99 fL (79-100) Mean Corpuscular Hemoglobin 34 pg (25-35) Mean Corpuscular Hemoglobin Concent 34 g/dL (31-37) Red Cell Distribution Width 13.4 % (11.5-14.5) Platelet Count 214 x10^3/uL (140-400) Neutrophils (%) (Auto) 62 % (31-73) Lymphocytes (%) (Auto) 24 % (24-48) Monocytes (%) (Auto) 12 % (0-9) Eosinophils (%) (Auto) 2 % (0-3) Basophils (%) (Auto) 1 % (0-3) Neutrophils # (Auto) 4.4 x10^3/uL (1.8-7.7) Lymphocytes # (Auto) 1.7 x10^3/uL (1.0-4.8) Monocytes # (Auto) 0.8 x10^3/uL (0.0-1.1) Eosinophils # (Auto) 0.2 x10^3/uL (0.0-0.7) Basophils # (Auto) 0.1 x10^3/uL (0.0-0.2) Prothrombin Time 12.5 SEC (11.7-14.0) Prothromb Time International Ratio 1.0 (0.8-1.1) Sodium Level 141 mmol/L (136-145) Potassium Level 4.3 mmol/L (3.5-5.1) Chloride Level 104 mmol/L (98-107) Carbon Dioxide Level 30 mmol/L (21-32) Anion Gap 7 (6-14) Blood Urea Nitrogen 15 mg/dL (8-26) Creatinine 1.1 mg/dL (0.7-1.3) Estimated GFR (Cockcroft-Gault) 78.1 BUN/Creatinine Ratio 14 (6-20) Glucose Level 93 mg/dL (70-99) Calcium Level 9.5 mg/dL (8.5-10.1) Total Bilirubin 0.6 mg/dL (0.2-1.0) Aspartate Amino Transf (AST/SGOT) 24 U/L (15-37) Alanine Aminotransferase (ALT/SGPT) 20 U/L (16-63) Alkaline Phosphatase 75 U/L (46-116) Troponin I Quantitative < 0.017 ng/mL (0.000-0.055) < 0.017 ng/mL (0.000-0.055) < 0.017 ng/mL (0.000-0.055) TC-Rcf-O-Type Natriuretic Peptide 79 pg/mL (0-449) Total Protein 8.1 g/dL (6.4-8.2) Albumin 3.9 g/dL (3.4-5.0) Albumin/Globulin Ratio 0.9 (1.0-1.7) Lipase 138 U/L (73-393) Laboratory Tests Test 07/13/19 13:30 07/13/19 18:00 07/13/19 20:54 White Blood Count 7.1 x10^3/uL (4.0-11.0) Red Blood Count 4.25 x10^6/uL (4.30-5.70) Hemoglobin 14.2 g/dL (13.0-17.5) Hematocrit 42.0 % (39.0-53.0) Mean Corpuscular Volume 99 fL (79-100) Mean Corpuscular Hemoglobin 34 pg (25-35) Mean Corpuscular Hemoglobin Concent 34 g/dL (31-37) Red Cell Distribution Width 13.4 % (11.5-14.5) Platelet Count 214 x10^3/uL (140-400) Neutrophils (%) (Auto) 62 % (31-73) Lymphocytes (%) (Auto) 24 % (24-48) Monocytes (%) (Auto) 12 % (0-9) Eosinophils (%) (Auto) 2 % (0-3) Basophils (%) (Auto) 1 % (0-3) Neutrophils # (Auto) 4.4 x10^3/uL (1.8-7.7) Lymphocytes # (Auto) 1.7 x10^3/uL (1.0-4.8) Monocytes # (Auto) 0.8 x10^3/uL (0.0-1.1) Eosinophils # (Auto) 0.2 x10^3/uL (0.0-0.7) Basophils # (Auto) 0.1 x10^3/uL (0.0-0.2) Prothrombin Time 12.5 SEC (11.7-14.0) Prothromb Time International Ratio 1.0 (0.8-1.1) Sodium Level 141 mmol/L (136-145) Potassium Level 4.3 mmol/L (3.5-5.1) Chloride Level 104 mmol/L (98-107) Carbon Dioxide Level 30 mmol/L (21-32) Anion Gap 7 (6-14) Blood Urea Nitrogen 15 mg/dL (8-26) Creatinine 1.1 mg/dL (0.7-1.3) Estimated GFR (Cockcroft-Gault) 78.1 BUN/Creatinine Ratio 14 (6-20) Glucose Level 93 mg/dL (70-99) Calcium Level 9.5 mg/dL (8.5-10.1) Total Bilirubin 0.6 mg/dL (0.2-1.0) Aspartate Amino Transf (AST/SGOT) 24 U/L (15-37) Alanine Aminotransferase (ALT/SGPT) 20 U/L (16-63) Alkaline Phosphatase 75 U/L (46-116) Troponin I Quantitative < 0.017 ng/mL (0.000-0.055) < 0.017 ng/mL (0.000-0.055) < 0.017 ng/mL (0.000-0.055) AK-Wwd-C-Type Natriuretic Peptide 79 pg/mL (0-449) Total Protein 8.1 g/dL (6.4-8.2) Albumin 3.9 g/dL (3.4-5.0) Albumin/Globulin Ratio 0.9 (1.0-1.7) Lipase 138 U/L (73-393) Medications Current Medications Aspirin (Children'S Aspirin) 324 mg 1X ONCE PO Last administered on 07/13/19at 13:30; Start 07/13/19 at 13:30; Stop 07/13/19 at 13:31; Status DC Morphine Sulfate (Morphine Sulfate) 2 mg PRN Q15MIN PRN IV/SQ PAIN GREATER THAN 3/10 Last administered on 07/13/19at 13:36; Start 07/13/19 at 13:30; Stop 07/14/19 at 13:29 Nitroglycerin (Nitro-Bid Oint) 1 inch 1X ONCE TP Last administered on 07/13/19at 13:30; Start 07/13/19 at 13:30; Stop 07/13/19 at 13:31; Status DC Acetaminophen (Tylenol) 325 mg Q6HRS PO ; Start 07/13/19 at 18:00; Stop 07/13/19 at 18:41; Status DC Aspirin (Ecotrin) 81 mg DAILYWBKFT PO ; Start 07/14/19 at 08:00 Atorvastatin Calcium (Lipitor) 20 mg QHS PO Last administered on 07/13/19at 20:39; Start 07/13/19 at 21:00 Dorzolamide HCl (Trusopt) 1 drop TID OU ; Start 07/13/19 at 21:00 Finasteride (Proscar) 5 mg DAILY PO ; Start 07/14/19 at 09:00 Lisinopril (Prinivil) 5 mg DAILY PO ; Start 07/14/19 at 09:00 Metoprolol Tartrate (Lopressor) 12.5 mg BID PO Last administered on 07/13/19at 20:39; Start 07/13/19 at 21:00 Tamsulosin HCl (Flomax) 0.4 mg DAILY PO ; Start 07/14/19 at 09:00 Brimonidine Tartrate (Alphagan) 1 drop BID OU ; Start 07/13/19 at 21:00 Timolol Maleate (Timoptic 0.5% Ophth) 1 drop BID OU Last administered on 07/13/19at 20:41; Start 07/13/19 at 21:00 Acetaminophen (Tylenol) 325 mg Q6HRS PRN PO pain; Start 07/13/19 at 18:45 Active Scripts Active Metoprolol Tartrate 25 Mg Tablet 12.5 Mg PO BID Lisinopril 5 Mg Tablet 5 Mg PO DAILY Atorvastatin Calcium 20 Mg Tablet 20 Mg PO QHS Aspirin Ec (Aspirin) 81 Mg Tablet.dr 81 Mg PO DAILYWBKFT Reported Tylenol (Acetaminophen) 325 Mg Tablet 325 Mg PO Q6HRS PRN Dorzolamide Hcl 10 Ml Drops 1 Drop EACHEYE TID Tamsulosin Hcl 0.4 Mg Cap.er.24h 0.4 Mg PO DAILY Finasteride 5 Mg Tablet 5 Mg PO DAILY Combigan Eye Drops (Brimonidine Tartrate/Timolol) 5 Ml Drops 1 Drp OP BID Vitals/I & O Vital Sign - Last 24 Hours 07/13/19 07/13/19 07/13/19 07/13/19 12:53 13:27 13:30 13:36 Temp 97.7 97.7 Pulse 69 64 62 Resp 18 B/P (MAP) 159/72 (101) 145/73 (97) 145/73 Pulse Ox 98 95 97 O2 Delivery Room Air Room Air Room Air 07/13/19 07/13/19 07/13/19 07/13/19 13:57 14:22 14:57 15:27 Pulse 64 72 66 68 Resp 18 17 19 B/P (MAP) 137/68 (91) 154/125 (135) 120/72 (88) 114/75 (88) Pulse Ox 97 95 94 98 O2 Delivery Room Air Room Air Room Air Room Air 07/13/19 07/13/19 07/13/19 07/13/19 15:57 16:27 16:30 17:30 Temp 97.4 97.4 Pulse 70 66 68 Resp 18 17 18 B/P (MAP) 122/76 (91) 113/61 (78) 118/73 (88) Pulse Ox 98 98 99 O2 Delivery Room Air Room Air Room Air Room Air 07/13/19 07/13/19 07/13/19 07/13/19 19:48 19:48 20:39 22:44 Temp 97.6 97.5 97.6 97.5 Pulse 72 72 70 Resp 18 18 B/P (MAP) 93/52 (66) 93/52 114/60 (78) Pulse Ox 98 97 O2 Delivery Room Air Room Air Room Air 07/14/19 07/14/19 02:13 06:52 Temp 97.9 97.9 97.9 97.9 Pulse 56 57 Resp 16 16 B/P (MAP) 100/59 (73) 126/68 (87) Pulse Ox 98 93 O2 Delivery Room Air Room Air Intake and Output 07/13/19 07/13/19 07/14/19 15:00 23:00 07:00 Intake Total 200 ml 840 ml Output Total 300 ml Balance 200 ml 540 ml RAIN DAMON MD Jul 14, 2019 07:33
[2019-07-14] MEDS ORDERED: ASPIRIN ENTERIC COATED 81 MG TABLET.DR. PO SCH (08:00)
[2019-07-14] MEDS ORDERED: FINASTERIDE 5 MG TABLET. PO SCH (09:00)
[2019-07-14] MEDS ORDERED: LISINOPRIL 5 MG TABLET. PO SCH (09:00)
[2019-07-14] MEDS: BRIMONIDINE 0.2% OPHTH SOLUTION 5ML BOTTLE. OU SCH (09:00)
[2019-07-14] MEDS ORDERED: TAMSULOSIN 0.4 MG CAP.ER.24H. PO SCH (09:00)
[2019-07-14] MEDS: DORZOLAMIDE 2% OPHTH SOLUTION 10ML BOTTLE. OU SCH (09:11)
[2019-07-14] MEDS: METOPROLOL TART IMMED RELEASE 25 MG TABLET. PO SCH (09:12)
[2019-07-14 10:14] VITALS: BP 118/66
--- NOTE | 2019-07-14 10:46 | PDOC2 ---
CARDIAC CONSULT DATE OF CONSULT Date of Consult DATE: 07/14/19 TIME: 10:35 REASON FOR CONSULT Reason for Consult: CP known CAD REFERRING PHYSICIAN Referring Physician: Blair SOURCE Source: Chart review, Patient HISTORY OF PRESENT ILLNESS HISTORY OF PRESENT ILLNESS This is a pleasant 79 yo male admitted for complains of chest discomfort. This is not chest pain per se but more like his heart was beating hard and having palpitations. No nausea or vomiting or any significant SOA. No changes to his activity tolerance and definitely no BERUMEN or exertional CP. 4 days ago his first cousin who is very close to him of heart attack. Since then he has been having problems with sleep and felt grief and anxiety. Reports that he is ok but felt saddened about it and just worried and stress about his symptoms that m oswald him come in. No recent falls or injury. No leg swelling or pain or any intractable coughing episodes. NO frequent dizziness or passing out. He has been complaint with his medications and his BP has been controlled. PAST MEDICAL HISTORY Cardiovascular: CAD, HTN, Hyperlipidemia Pulmonary: No pertinent hx CENTRAL NERVOUS SYSTEM: Other (No pertinent history) GI: Peptic Ulcer disease (ERNESTO Blue) Heme/Onc: Anemia NOS Hepatobiliary: No pertinent hx Psych: Anxiety Musculoskeletal: Osteoarthritis Rheumatologic: No pertinent hx ENT: No pertinent hx Renal/: Benign prostatic enlarg. Endocrine: No pertinent hx Dermatology: No pertinent hx PAST SURGICAL HISTORY Past Surgical History: Other (PCI) FAMILY HISTORY Family History: Hypertension SOCIAL HISTORY Smoke: No ALCOHOL: none Drugs: None Lives: with Family CURRENT MEDICATIONS CURRENT MEDICATIONS Current Medications Medications (Trade) Dose Ordered Sig/Narcisa Route PRN Reason Start Time Stop Time Status Last Admin Dose Admin Aspirin (Children'S Aspirin) 324 mg 1X ONCE PO 07/13/19 13:30 07/13/19 13:31 DC 07/13/19 13:30 Morphine Sulfate (Morphine Sulfate) 2 mg PRN Q15MIN PRN IV/SQ PAIN GREATER THAN 3/10 07/13/19 13:30 07/14/19 13:29 07/13/19 13:36 Nitroglycerin (Nitro-Bid Oint) 1 inch 1X ONCE TP 07/13/19 13:30 07/13/19 13:31 DC 07/13/19 13:30 Aspirin (Ecotrin) 81 mg DAILYWBKFT PO 07/14/19 08:00 07/14/19 09:11 Atorvastatin Calcium (Lipitor) 20 mg QHS PO 07/13/19 21:00 07/13/19 20:39 Dorzolamide HCl (Trusopt) 1 drop TID OU 07/13/19 21:00 07/14/19 09:11 Finasteride (Proscar) 5 mg DAILY PO 07/14/19 09:00 07/14/19 09:11 Lisinopril (Prinivil) 5 mg DAILY PO 07/14/19 09:00 07/14/19 09:12 Metoprolol Tartrate (Lopressor) 12.5 mg BID PO 07/13/19 21:00 07/14/19 09:12 Tamsulosin HCl (Flomax) 0.4 mg DAILY PO 07/14/19 09:00 07/14/19 09:12 Timolol Maleate (Timoptic 0.5% Oph) 1 drop BID OU 07/13/19 21:00 07/13/19 20:41 ALLERGIES ALLERGIES: Coded Allergies: No Known Drug Allergies (Unverified , 06/15/16) ROS Review of System 14 point ROS evaluated with pertinent positives noted per HPI PHYSICAL EXAM General: Alert, Oriented X3, Cooperative, No acute distress HEENT: Atraumatic, Mucous membr. moist/pink Lungs: Clear to auscultation, Normal air movement Heart: Regular rate (SR), Normal S1, Normal S2, No murmurs Abdomen: Soft, No tenderness Extremities: No cyanosis, No edema Skin: No breakdown, No significant lesion Neuro: Normal speech, Sensation intact Psych/Mental Status: Mental status NL, Mood NL MUSCULOSKELETAL: Osteoarthritic changes both hands VITALS/I&O VITALS/I&O: Vital Signs Date Time Temp Pulse Resp B/P (MAP) Pulse Ox O2 Delivery O2 Flow Rate FiO2 07/14/19 10:14 97.5 63 16 118/66 (83) 99 Room Air 97.5 I & O 07/13/19 07/13/19 07/14/19 15:00 23:00 07:00 Intake Total 200 ml 840 ml Output Total 300 ml Balance 200 ml 540 ml LABS Lab: Laboratory Tests Test 07/13/19 13:30 07/13/19 18:00 07/13/19 20:54 White Blood Count 7.1 x10^3/uL (4.0-11.0) Red Blood Count 4.25 x10^6/uL (4.30-5.70) L Hemoglobin 14.2 g/dL (13.0-17.5) Hematocrit 42.0 % (39.0-53.0) Mean Corpuscular Volume 99 fL (79-100) Mean Corpuscular Hemoglobin 34 pg (25-35) Mean Corpuscular Hemoglobin Concent 34 g/dL (31-37) Red Cell Distribution Width 13.4 % (11.5-14.5) Platelet Count 214 x10^3/uL (140-400) Neutrophils (%) (Auto) 62 % (31-73) Lymphocytes (%) (Auto) 24 % (24-48) Monocytes (%) (Auto) 12 % (0-9) H Eosinophils (%) (Auto) 2 % (0-3) Basophils (%) (Auto) 1 % (0-3) Neutrophils # (Auto) 4.4 x10^3/uL (1.8-7.7) Lymphocytes # (Auto) 1.7 x10^3/uL (1.0-4.8) Monocytes # (Auto) 0.8 x10^3/uL (0.0-1.1) Eosinophils # (Auto) 0.2 x10^3/uL (0.0-0.7) Basophils # (Auto) 0.1 x10^3/uL (0.0-0.2) Prothrombin Time 12.5 SEC (11.7-14.0) Prothrombin Time INR 1.0 (0.8-1.1) Sodium Level 141 mmol/L (136-145) Potassium Level 4.3 mmol/L (3.5-5.1) Chloride Level 104 mmol/L (98-107) Carbon Dioxide Level 30 mmol/L (21-32) Anion Gap 7 (6-14) Blood Urea Nitrogen 15 mg/dL (8-26) Creatinine 1.1 mg/dL (0.7-1.3) Estimated GFR (Cockcroft-Gault) 78.1 BUN/Creatinine Ratio 14 (6-20) Glucose Level 93 mg/dL (70-99) Calcium Level 9.5 mg/dL (8.5-10.1) Total Bilirubin 0.6 mg/dL (0.2-1.0) Aspartate Amino Transferase (AST) 24 U/L (15-37) Alanine Aminotransferase (ALT) 20 U/L (16-63) Alkaline Phosphatase 75 U/L (46-116) Troponin I Quantitative < 0.017 ng/mL (0.000-0.055) < 0.017 ng/mL (0.000-0.055) < 0.017 ng/mL (0.000-0.055) WN-Gwf-Y-Type Natriuretic Peptide 79 pg/mL (0-449) Total Protein 8.1 g/dL (6.4-8.2) Albumin 3.9 g/dL (3.4-5.0) Albumin/Globulin Ratio 0.9 (1.0-1.7) L Lipase 138 U/L (73-393) Laboratory Tests 07/13/19 13:30 Laboratory Tests 07/13/19 13:30 ECHOCARDIOGRAM ECHOCARDIOGRAM <Conclusion> The left ventricular systolic function is normal. The Ejection Fraction is 55-60%. There is normal LV segmental wall motion. Mild mitral regurgitation. Mild tricuspid regurgitation. The PA pressure was estimated at 23 mmHg. There is no evidence of significant pericardial effusion. DATE: 01/26/19 1026 HEART CATH HEART CATH FINDINGS 1. Hemodynamics: Left ventricular end-diastolic pressure of 12 mmHg. No pullback gradient across the aortic valve. 2. Left ventriculography: Normal left ventricle systolic function with ej ection fraction estimated at 65%. No significant mitral regurgitation seen. 3. Coronary angiography: a. The left main coronary artery arose from the left sinus of Valsalva, gave rise to the left anterior descending and left circumflex arteries and did not show any significant stenosis. b. The left anterior descending artery showed patent stent in the midsegment. c. The left circumflex artery showed patent stent in the mid to distal segment of obtuse marginal branch. d. The right coronary artery was a large and dominant vessel arising from the right sinus of Valsalva that did not show any significant stenosis. Conclusion 1. No significant coronary artery stenosis with patent previously placed stents in left anterior descending artery and obtuse marginal branch of left circumflex artery 2. Normal left ventricle systolic function with ejection fraction estimated at 65%. Recommendations Medical Therapy DATE: 10/13/18 1556 ASSESSMENT/PLAN ASSESSMENT/PLAN 1. Atypical CP: more from sensation of palpitations likely induced by anxiety 2. CAD: past stents. clinically stable 3. HTN: controlled 4. HLP 5. Anxiety/Grief: family member of CT 4 days ago Recommendations 1. He does consume heavy amount of pepsi at least 1 L. Discussed decreasing amount 2. Continue secondary prevention measures. 3. Nothing further cardiac paulson. Follow up in office on 07/30 at 11 AM with HANS Moffett APRN Jul 14, 2019 10:46
--- NOTE | 2019-07-14 10:51 | PDOC3 ---
Discharge Summary Visit Information Date of Admission: Jul 13, 2019 Date of Discharge: Jul 14, 2019 Admitting Diagnosis: Chest pain Final Diagnosis Problems Medical Problems: (1) CAD (coronary artery disease) Status: Acute (2) Chest pain Status: Acute Brief Hospital Course Allergies Allergies Coded Allergies Type Severity Reaction Last Updated Verified No Known Drug Allergies 06/15/16 No Vital Signs Vital Signs Date Time Temp Pulse Resp B/P (MAP) Pulse Ox O2 Delivery O2 Flow Rate FiO2 07/14/19 10:14 97.5 63 16 118/66 (83) 99 Room Air 97.5 Lab Results Laboratory Tests Test 07/13/19 13:30 07/13/19 18:00 07/13/19 20:54 White Blood Count 7.1 x10^3/uL (4.0-11.0) Red Blood Count 4.25 x10^6/uL (4.30-5.70) Hemoglobin 14.2 g/dL (13.0-17.5) Hematocrit 42.0 % (39.0-53.0) Mean Corpuscular Volume 99 fL (79-100) Mean Corpuscular Hemoglobin 34 pg (25-35) Mean Corpuscular Hemoglobin Concent 34 g/dL (31-37) Red Cell Distribution Width 13.4 % (11.5-14.5) Platelet Count 214 x10^3/uL (140-400) Neutrophils (%) (Auto) 62 % (31-73) Lymphocytes (%) (Auto) 24 % (24-48) Monocytes (%) (Auto) 12 % (0-9) Eosinophils (%) (Auto) 2 % (0-3) Basophils (%) (Auto) 1 % (0-3) Neutrophils # (Auto) 4.4 x10^3/uL (1.8-7.7) Lymphocytes # (Auto) 1.7 x10^3/uL (1.0-4.8) Monocytes # (Auto) 0.8 x10^3/uL (0.0-1.1) Eosinophils # (Auto) 0.2 x10^3/uL (0.0-0.7) Basophils # (Auto) 0.1 x10^3/uL (0.0-0.2) Prothrombin Time 12.5 SEC (11.7-14.0) Prothromb Time International Ratio 1.0 (0.8-1.1) Sodium Level 141 mmol/L (136-145) Potassium Level 4.3 mmol/L (3.5-5.1) Chloride Level 104 mmol/L (98-107) Carbon Dioxide Level 30 mmol/L (21-32) Anion Gap 7 (6-14) Blood Urea Nitrogen 15 mg/dL (8-26) Creatinine 1.1 mg/dL (0.7-1.3) Estimated GFR (Cockcroft-Gault) 78.1 BUN/Creatinine Ratio 14 (6-20) Glucose Level 93 mg/dL (70-99) Calcium Level 9.5 mg/dL (8.5-10.1) Total Bilirubin 0.6 mg/dL (0.2-1.0) Aspartate Amino Transf (AST/SGOT) 24 U/L (15-37) Alanine Aminotransferase (ALT/SGPT) 20 U/L (16-63) Alkaline Phosphatase 75 U/L (46-116) Troponin I Quantitative < 0.017 ng/mL (0.000-0.055) < 0.017 ng/mL (0.000-0.055) < 0.017 ng/mL (0.000-0.055) CC-Iwy-H-Type Natriuretic Peptide 79 pg/mL (0-449) Total Protein 8.1 g/dL (6.4-8.2) Albumin 3.9 g/dL (3.4-5.0) Albumin/Globulin Ratio 0.9 (1.0-1.7) Lipase 138 U/L (73-393) Laboratory Tests Test 07/13/19 13:30 07/13/19 18:00 07/13/19 20:54 White Blood Count 7.1 x10^3/uL (4.0-11.0) Red Blood Count 4.25 x10^6/uL (4.30-5.70) Hemoglobin 14.2 g/dL (13.0-17.5) Hematocrit 42.0 % (39.0-53.0) Mean Corpuscular Volume 99 fL (79-100) Mean Corpuscular Hemoglobin 34 pg (25-35) Mean Corpuscular Hemoglobin Concent 34 g/dL (31-37) Red Cell Distribution Width 13.4 % (11.5-14.5) Platelet Count 214 x10^3/uL (140-400) Neutrophils (%) (Auto) 62 % (31-73) Lymphocytes (%) (Auto) 24 % (24-48) Monocytes (%) (Auto) 12 % (0-9) Eosinophils (%) (Auto) 2 % (0-3) Basophils (%) (Auto) 1 % (0-3) Neutrophils # (Auto) 4.4 x10^3/uL (1.8-7.7) Lymphocytes # (Auto) 1.7 x10^3/uL (1.0-4.8) Monocytes # (Auto) 0.8 x10^3/uL (0.0-1.1) Eosinophils # (Auto) 0.2 x10^3/uL (0.0-0.7) Basophils # (Auto) 0.1 x10^3/uL (0.0-0.2) Prothrombin Time 12.5 SEC (11.7-14.0) Prothromb Time International Ratio 1.0 (0.8-1.1) Sodium Level 141 mmol/L (136-145) Potassium Level 4.3 mmol/L (3.5-5.1) Chloride Level 104 mmol/L (98-107) Carbon Dioxide Level 30 mmol/L (21-32) Anion Gap 7 (6-14) Blood Urea Nitrogen 15 mg/dL (8-26) Creatinine 1.1 mg/dL (0.7-1.3) Estimated GFR (Cockcroft-Gault) 78.1 BUN/Creatinine Ratio 14 (6-20) Glucose Level 93 mg/dL (70-99) Calcium Level 9.5 mg/dL (8.5-10.1) Total Bilirubin 0.6 mg/dL (0.2-1.0) Aspartate Amino Transf (AST/SGOT) 24 U/L (15-37) Alanine Aminotransferase (ALT/SGPT) 20 U/L (16-63) Alkaline Phosphatase 75 U/L (46-116) Troponin I Quantitative < 0.017 ng/mL (0.000-0.055) < 0.017 ng/mL (0.000-0.055) < 0.017 ng/mL (0.000-0.055) IL-Cjr-I-Type Natriuretic Peptide 79 pg/mL (0-449) Total Protein 8.1 g/dL (6.4-8.2) Albumin 3.9 g/dL (3.4-5.0) Albumin/Globulin Ratio 0.9 (1.0-1.7) Lipase 138 U/L (73-393) Brief Hospital Course Mr Thompson is a 78 yo male w/ PMHx HTN, CAD, GERD, PUD, HLD, BPH who presents with mid chest pressure for the last 2 days that comes and goes. Patient states that he dose not know what triggered this pressure but he has been under some stress the past 4 days. He also has a great-grandchild due very soon.. Patient denies shortness of air, nausea, vomiting, fever. Patient has a history of stents [address] Piña. Patient states he is also concerned that he's been having worsening extremity edema in his ankles, R>L. BNP negative. In ED found with negative troponin, EKG left axis, no STEMI. CXR no abnormalities. Seen by cardiology, ruled out for AMI. No further CP, no SOB today. Will have outpatient f/u. Given relaxation exercises. Problem list - A/P: Chest pain - could be 2/2 unstable angina, however his left arm pain and improvement with NTG and CAD history and cessation of plavix last year for PUD merit further w/u. Trend trops. cont NTG, ASA, consult cardiology Bilateral LE swelling - better than prior CAD - cont meds PUD - cont PPI, carafate. Stopped plavix previously for GI bleed HLD - cont statin Greater than 30 minutes spent on d/c Discharge Information Condition at Discharge: Improved Follow Up: Weeks (1) Disposition/Orders: D/C to Home Scheduled Aspirin (Aspirin Ec) 81 Mg Tablet., 81 MG PO DAILYWBK, #30 Ref 3 Prescribed by: MAXIME NASSAR MD on 06/19/161114 Last Action: Continued on 07/13/191740 by MARGIE BARRETT Atorvastatin Calcium (Atorvastatin Calcium) 20 Mg Tablet, 20 MG PO QHS, #30 Ref 1 Prescribed by: MAXIME NASSAR MD on 06/19/165 Last Action: Continued on 07/13/191740 by MARGIE J NENA Brimonidine Tartrate/Timolol (Combigan Eye Drops) 5 Ml Drops, 1 DRP OP BID for glacoma, (Reported) Entered as Reported by: Felecia Rice on 06/16/16216 Last Action: Converted on 07/13/191740 by MARGIE BARRETT Dorzolamide Hcl (Dorzolamide Hcl) 10 Ml Drops, 1 DROP EACHEYE TID, #30 Ref 3 (Reported) Entered as Reported by: Felecia Rice on 06/16/16216 Last Action: Continued on 07/13/191740 by MARGIE BARRETT Finasteride (Finasteride) 5 Mg Tablet, 5 MG PO DAILY, (Reported) Entered as Reported by: Felecia Rice on 06/16/16216 Last Action: Continued on 07/13/191740 by MARGIE BARRETT Lisinopril (Lisinopril) 5 Mg Tablet, 5 MG PO DAILY, #30 Ref 1 Prescribed by: MAXIME NASSAR MD on 06/19/161114 Last Action: Continued on 07/13/191740 by MARGIE BARRETT Metoprolol Tartrate (Metoprolol Tartrate) 25 Mg Tablet, 12.5 MG PO BID, #30 Ref 1 Prescribed by: MAXIME NASSAR MD on 06/19/161114 Last Action: Continued on 07/13/191740 by MARGIE BARRETT Tamsulosin Hcl (Tamsulosin Hcl) 0.4 Mg Cap.er.24h, 0.4 MG PO DAILY for BPH, (Reported) Entered as Reported by: Felecia Rice on 06/16/16216 Last Action: Continued on 07/13/191740 by MARGIE BARRETT Scheduled PRN Acetaminophen (Tylenol) 325 Mg Tablet, 325 MG PO Q6HRS PRN for PAIN, (Reported) Entered as Reported by: MARGIE BARRETT on 07/13/191717 Last Action: Edited on 07/13/191838 by RAIN FAITH MD Jul 14, 2019 10:51
[2019-07-14] MEDS ORDERED: MAG HYDROX/ALUMINUM HYD/SIMETH 30 ML ORAL.SUSP PO ONE (11:30)
--- NOTE | 2019-07-14 11:40 | NUR ---
SS following for discharge planning. SS reviewed pt chart. Pt is from home with spouse and is currently on room air. Discharge order on the chart for home with self care.
--- NOTE | 2019-07-14 12:44 | NUR ---
Discharge Note: KATHLEEN LUU Discharge instructions and discharge home medications reviewed with Patient and a copy given. All questions have been answered and understanding verbalized. The following instructions and handouts were given: chest pain and cardiac diet Discontinued lines and drains: Peripheral IV intact. Patient discharged to Home or Self Care with Spouse via Wheelchair
== END 2019-07-14 12:40 | disposition home or self-care (01) ==
LOC: ER 12:48 → 2 SOUTH 14:45
PROVIDERS: ADMIT Internal Medicine; ATTEND Internal Medicine
DX: R07.89 Other chest pain (principal); I25.10 Atherosclerotic heart disease of native coronary artery without angina pectoris; K21.9 Gastro-esophageal reflux disease without esophagitis; E78.5 Hyperlipidemia, unspecified; N40.0 Benign prostatic hyperplasia without lower urinary tract symptoms; K27.9 Peptic ulcer, site unspecified, unspecified as acute or chronic, without hemorrhage or perforation; M79.89 Other specified soft tissue disorders; E78.00 Pure hypercholesterolemia, unspecified; I11.9 Hypertensive heart disease without heart failure; F06.4 Anxiety disorder due to known physiological condition; Z95.5 Presence of coronary angioplasty implant and graft; Z79.82 Long term (current) use of aspirin; Z79.899 Other long term (current) drug therapy
CPT/HCPCS: 36415; 71045; 80053; 83690; 83880; 84484; 85025; 85610; 93005; 96374; 99284; G0378; J2270; G0379

== ENCOUNTER 2020-12-25 18:49 | Emergency (ER) | payer MEDICARE ==
[~2020-12-25] VITALS: Ht 182.9 cm; Wt 80.0 kg
[~2020-12-25 18:49] MED LIST changes: +ACET325T9 PO; -ASPI-612 PO; +ASPI-886 PO; -LISI-338 PO; +LISI-517 PO; +MULT-445 PO; -MULT1TAB52 PO
--- NOTE | 2020-12-25 19:24 | EKG ---
[facility] [address] [place] [address] Test Date: 2020-12-25 Test Time: 19:06:32 Pat Name: KATHLEEN LUU Department: Room: Gender: M Youth Support Worker: : 1940 Requested By: CRYSTAL NEW Order Number: [id number] Reading MD: Measurements Intervals [place]in Rate: 65 P: 57 GA: 172 QRS: -12 QRSD: 84 T: -142 QT: 368 QTc: 383 Interpretive Statements SINUS RHYTHM LEFTWARD AXIS LOW LIMB LEAD VOLTAGE QRS(T) CONTOUR ABNORMALITY CONSIDER ANTEROLATERAL MYOCARDIAL DAMAGE T ABNORMALITY IN INFEROLATERAL LEADS ABNORMAL ECG RI6.01 No previous ECG available for comparison
[2020-12-25 19:26] LABS: BASO % 1 % (0-3); EOS # 0.1 x10^3/uL (0.0-0.7); EOS % 2 % (0-3); HEMATOCRIT 43.4 % (39.0-53.0); HEMOGLOBIN 14.6 g/dL (13.0-17.5); LYMPH # 1.3 x10^3/uL (1.0-4.8); LYMPH % 21 % (24-48); MEAN CORPUSCULAR HEMOGLOBIN 33 pg (25-35); MEAN CORPUSCULAR HGB CONC 34 g/dL (31-37); MEAN CORPUSCULAR VOLUME 100 fL (79-100); MONO # 0.7 x10^3/uL (0.0-1.1); MONO % 11 % (0-9); NEUT % 65 % (31-73); PLATELET COUNT 193 x10^3/uL (140-400); RED BLOOD COUNT 4.36 x10^6/uL (4.30-5.70); RED CELL DISTRIBUTION WIDTH 13.7 % (11.5-14.5); WHITE BLOOD COUNT 6.2 x10^3/uL (4.0-11.0)
--- NOTE | 2020-12-25 19:26 | PHYS DOC ---
Past Medical History Past Medical History: CAD, GERD, High Cholesterol, Heart Disease, Hypertension, Other Additional Past Medical Histor: ENLARGED PROSTATE (CRYSTAL NEW James WATERMELON INSPECTOR) Past Surgical History: No Surgical History Additional Past Surgical Histo: Cardiac STENTS x2. (CRYSTAL NEW WATERMELON INSPECTOR) Smoking Status: Former Smoker Alcohol Use: None Drug Use: None (CRYSTAL NEW WATERMELON INSPECTOR) General Adult EDM: Chief Complaint: HYPERTENSION HPI: HPI: Patient is a 80 year old male with history of hypertension, high cholesterol, CAD, BPH, presenting to the ED today complaining of high blood pressure patient states for the last 1 week his diet has been bad and his blood pressure has been in the 150s over 80s. He states this is not normal for him. He states his blood pressure systolic numbers usually runs in the 120s to 130s though he does not remember his diastolic number. Patient denies any chest pain or shortness of breath. He states occasionally has dizziness, and intermittent mild headaches but he has been taking aspirin for twice a day with good relief. Denies any dizziness on position change or ambulation. Denies any sensation of the room spinning or him spinning. Denies any nausea or vomiting. (CRYSTAL NEW WATERMELON INSPECTOR) Review of Systems: Review of Systems: Constitutional: Denies fever or chills. [] Eyes: Denies change in visual acuity. [] HENT: Denies nasal congestion or sore throat. [] Respiratory: Denies cough or shortness of breath. [] Cardiovascular: Reports high blood pressure. Denies chest pain or edema. [] GI: Denies abdominal pain, nausea, vomiting, bloody stools or diarrhea. [] : Denies dysuria. [] Musculoskeletal: Denies back pain or joint pain. [] Integument: Denies rash. [] Neurologic: Reports dizziness and headaches, denies focal weakness or sensory changes. [] Psychiatric: Denies depression or anxiety. [] (CRYSTAL NEW James WATERMELON INSPECTOR) Heart Score: C/O Chest Pain: N/A Risk Factors: Risk Factors: DM, Current or recent (<one month) smoker, HTN, HLP, family history of CAD, obesity. Risk Scores: Score 0 - 3: 2.5% MACE over next 6 weeks - Discharge Home Score 4 - 6: 20.3% MACE over next 6 weeks - Admit for Clinical Observation Score 7 - 10: 72.7% MACE over next 6 weeks - Early Invasive Strategies (CRYSTAL NEW WATERMELON INSPECTOR) Current Medications: Current Medications Medications (Trade) Dose Ordered Sig/Narcisa Start Time Stop Time Status Last Admin Dose Admin Sodium Chloride 1,000 ml @ 1,000 mls/hr 1X ONCE 12/25/20 19:30 12/25/20 20:29 12/25/20 19:17 1,000 MLS/HR (CRYSTAL NEW WATERMELON INSPECTOR) Allergies: Allergies: Allergies Coded Allergies Type Severity Reaction Last Updated Verified No Known Drug Allergies 06/15/16 No (CRYSTAL NEW WATERMELON INSPECTOR) Physical Exam: PE: Constitutional: Well developed, well nourished, no acute distress, non-toxic appearance. [] HENT: Normocephalic, atraumatic, bilateral external ears normal, oropharynx moist, no oral exudates, nose normal. [] Eyes: PERRLA, EOMI, conjunctiva normal, no discharge. [] Neck: Normal range of motion, no tenderness, supple, no stridor. [] Cardiovascular:Heart rate regular rhythm, no murmur [] Lungs & Thorax: Bilateral breath sounds clear to auscultation [] Abdomen: Bowel sounds normal, soft, no tenderness, no masses, no pulsatile masses. [] Skin: Warm, dry, no erythema, no rash. [] Back: No tenderness, no CVA tenderness. [] Extremities: No tenderness, no cyanosis, no clubbing, ROM intact, no edema. [] Neurologic: Alert and oriented X 3, normal motor function, normal sensory function, no focal deficits noted. Cranial nerves II through XII intact Psychologic: Affect normal, judgement normal, mood normal. [] (CRYSTAL NEW WATERMELON INSPECTOR) Current Patient Data: Vital Signs: Vital Signs Date Time Temp Pulse Resp B/P (MAP) Pulse Ox O2 Delivery O2 Flow Rate FiO2 12/25/20 18:50 98.7 67 18 164/83 (110) 94 Room Air 98.7 (CRYSTAL NEW WATERMELON INSPECTOR) EKG: EK interpreted by Dr. Whitfield sinus rhythm heart rate 65 no STEMI [] (CRYSTAL NEW WATERMELON INSPECTOR) Radiology/Procedures: Radiology/Procedures: []PROCEDURE: PORTABLE CHEST 1V Single view chest dated 12/25/2020: No comparison available. Clinical Indication: High blood pressure. Findings: Single upright portable exam of the chest was performed. Heart size and mediastinal contours are within normal limits given technique. The lungs are clear without evidence of focal consolidation. Vascular interstitium is within normal limits. Impression:: Negative portable chest. Electronically signed by: Anuel Mora MD (12/25/2020 7:35 PM) [facility] DICTATED and SIGNED BY: ANUEL MORA MD DATE: 12/25/[id number] 0 PROCEDURE: CT HEAD WO CONTRAST CT head without contrast dated 12/25/2020. No comparison available. Clinical data indication: High blood pressure. TECHNIQUE: Contiguous axial imaging the head was performed from skull base to vertex. No contrast administered. One or more of the following individualized dose reduction techniques were utilized for this examination: 1. Automated exposure control 2. Adjustment of the mA and/or kV according to patient size 3. Use of iterative reconstruction technique. FINDINGS: Ventricles and sulci are mildly prominent for age. No midline shift or mass effect. Mild patchy low density in the deep/subcortical periventricular white matter. No hemorrhage or extra axial collection. Posterior fossa and brainstem unremarkable. Visualized paranasal sinuses and mastoid air cells are clear. No apparent calvarial abnormality. IMPRESSION: 1. No evidence of acute intracranial hemorrhage or mass. 2. Mild chronic small vessel ischemic changes and atrophy. Electronically signed by: Anuel Mora MD (12/25/2020 7:40 PM) [facility] DICTATED and SIGNED BY: ANUEL MORA MD DATE: 12/25/[id number] 0 (CRYSTAL NEW APRN) Course & Med Decision Making: Course & Med Decision Making Pertinent Labs and Imaging studies reviewed. (See chart for details) This is a 80-year-old male patient with history of hypertension presenting today complaining of high blood pressure. Patient states his blood pressures have been running in the 150s over 80s which is not normal for him. He is on several blood pressure medications including lisinopril and metoprolol. He states his BP normally runs around 1 20-130 systolic, he does not remember diastolic numbers. Also complaining of headaches and dizziness. Reports his diet has been bad for the last 1 week. Patient has no chest pain or shortness of breath. Blood pressure on arrival to the ED was 164/83 with a heart rate of 67. EKG is negative. Chest x-ray is negative, CT of the head is negative. CBC CMP troponin with no acute findings. UA is negative. BP is in 140s over 70s. Discharge to home. Follow-up with PCP (CRYSTAL NEW APRN) Dragon Disclaimer: Dragon Disclaimer: This electronic medical record was generated, in whole or in part, using a voice recognition dictation system. (CRYSTAL NEW APRN) Departure Departure Impression: Primary Impression: High blood pressure Qualified Codes: I10 - Essential (primary) hypertension Additional Impressions: Dizziness Headache Qualified Codes: R51.9 - Headache, unspecified Disposition: HOME / SELF CARE / HOMELESS Condition: STABLE Referrals: ROSE SAMSON MD (PCP) Follow-up in 1 week Patient Instructions: Dizziness, Hypertension Additional Instructions: You were evaluated in the emergency room, your blood pressure by the time we discharged you was in the 140s over 70s this is not bad. Please continue taking your blood pressure medicines and follow-up with your primary care doctor. Come back to the ED at any point symptoms are concerning Scripts Ondansetron (ONDANSETRON ODT) 4 Mg Tab.rapdis 1 TAB PO PRN Q6-8HRS, #16 TAB Prov: CRYSTAL NEW APRN 12/25/20 Attending Signature Attending Signature I have reviewed the PA/BEAD PICKER's note and plan of care. I was available for co nsultation as needed during the patient's visit in the emergency department. I agree with the clinical impression, plan, and disposition. (ANUEL WHITFIELD DO) CRYSTAL NEW APRN December 25, 2020 19:26 ANUEL WHITFIELD DO December 25, 2020 23:01
[2020-12-25] MEDS ORDERED: IV NORMAL SALINE 1000ML BAG 1,000 ML IV ONE (19:30)
[2020-12-25 19:33] LABS: CALCIUM 9.5 mg/dL (8.5-10.1); CREATININE 1.1 mg/dL (0.7-1.3); GFR 77.9; POTASSIUM 4.2 mmol/L (3.5-5.1)
--- NOTE | 2020-12-25 19:37 | RAD ---
Single view chest dated 12/25/2020: No comparison available. Clinical Indication: High blood pressure. Findings: Single upright portable exam of the chest was performed. Heart size and mediastinal contours are with in normal limits given technique. The lungs are clear without evidence of focal consolidation. Vascul ar interstitium is within normal limits. Impression:: Negative portable chest. Electronically signed by: Anuel Mora MD (12/25/2020 7:35 PM) [facility]
[2020-12-25 19:39] LABS: ALBUMIN 4.3 g/dL (3.4-5.0); ALBUMIN/GLOBULIN RATIO 1.4 (1.0-1.7); MAGNESIUM 2.2 mg/dL (1.8-2.4); TOTAL BILIRUBIN 0.8 mg/dL (0.2-1.0); TOTAL PROTEIN 7.4 g/dL (6.4-8.2)
--- NOTE | 2020-12-25 19:42 | RAD ---
CT head without contrast dated 12/25/2020. No comparison available. Clinical data indication: High blood pressure. TECHNIQUE: Contiguous axial imaging the head was performed from skull base to vertex. No contrast administered. One or more of the following individualized dose reduction techniques were utilized for this examinat ion: 1. Automated exposure control 2. Adjustment of the mA and/or kV according to patient size 3. Use of iterative reconstruction technique. FINDINGS: Ventricles and sulci are mildly prominent for age. No midline shift or mass effect. Mild patchy low d ensity in the deep/subcortical periventricular white matter. No hemorrhage or extra axial collection. Posterior fossa and brainstem unremarkable. Visualized paranasal sinuses and mastoid air cells are clear. No apparent calvarial abnormality. IMPRESSION: 1. No evidence of acute intracranial hemorrhage or mass. 2. Mild chronic small vessel ischemic changes and atrophy. Electronically signed by: Anuel Mora MD (12/25/2020 7:40 PM) [facility]
[2020-12-25 20:18] LABS: BILIRUBIN,URINE NEGATIVE (NEG); CLARITY,URINE CLEAR; COLOR,URINE YELLOW; NITRITE,URINE NEGATIVE (NEG); PROTEIN,URINE NEGATIVE (NEG-TRACE); UROBILINOGEN,URINE 0.2 mg/dL (0.2 mg/dL)
[2020-12-25 20:23] LABS: BARBITURATES NEG (NEG); BENZODIAZEPINES NEG (NEG); CANNABINOIDS NEG (NEG); COCAINE NEG (NEG); METHADONE NEG (NEG); OPIATES NEG (NEG); PHENCYCLIDINE NEG (NEG)
[2020-12-25 20:24] LABS: AMPHETAMINE/METHAMPHETAMINE NEG (NEG)
[2020-12-25 20:26] LABS: BACTERIA,URINE 0 /HPF (0-FEW); RBC,URINE OCC /HPF (0-2); WBC,URINE 0 /HPF (0-4)
[2020-12-25 20:30] VITALS: BP 159/77
[2020-12-25] MEDS ORDERED: ONDA4TAB12 PO (20:44)
== END 2020-12-25 20:40 | disposition home or self-care (01) ==
LOC: ER 18:49
DX: I10 Essential (primary) hypertension (principal); R42 Dizziness and giddiness; R51.9 Headache, unspecified; K21.9 Gastro-esophageal reflux disease without esophagitis; E78.00 Pure hypercholesterolemia, unspecified; I11.9 Hypertensive heart disease without heart failure; I25.10 Atherosclerotic heart disease of native coronary artery without angina pectoris; Z87.891 Personal history of nicotine dependence
CPT/HCPCS: 36415; 70450; 71045; 80053; 80307; 81001; 83735; 83880; 84484; 85025; 93005; 96360; 99285; J7030

== ENCOUNTER 2021-07-06 18:26 | Emergency (ER) | payer MEDICARE ==
[~2021-07-06] VITALS: Ht 188 cm; Wt 79.8 kg
[~2021-07-06 18:26] MED LIST changes: -LISI-517 PO; +LISI5TAB15 PO; +ONDA4TAB12 PO
--- NOTE | 2021-07-06 19:50 | RAD ---
EXAMINATION: Chest radiograph. VIEWS: Single AP view of the chest COMPARISON: 12/25/2020 INDICATION:81 years, Male, hypertension. FINDINGS: Normal cardiomediastinal silhouette. No focal consolidation. No pleural effusion or pneumothorax. No acute osseous process. IMPRESSION: No acute cardiopulmonary process. Electronically signed by: Devan Bunn DO (07/06/2021 7:48 PM) [facility]
[2021-07-06 19:51] LABS: BASO % 1 % (0-3); EOS # 0.1 x10^3/uL (0.0-0.7); EOS % 2 % (0-3); HEMOGLOBIN 14.7 g/dL (13.0-17.5); LYMPH % 15 % (24-48); MEAN CORPUSCULAR HEMOGLOBIN 33 pg (25-35); MEAN CORPUSCULAR HGB CONC 33 g/dL (31-37); MEAN CORPUSCULAR VOLUME 100 fL (79-100); MONO # 0.6 x10^3/uL (0.0-1.1); MONO % 9 % (0-9); NEUT # 4.9 x10^3/uL (1.8-7.7); NEUT % 74 % (31-73); PLATELET COUNT 175 x10^3/uL (140-400); RED CELL DISTRIBUTION WIDTH 13.4 % (11.5-14.5); WHITE BLOOD COUNT 6.6 x10^3/uL (4.0-11.0)
[2021-07-06 20:02] LABS: CALCIUM 9.5 mg/dL (8.5-10.1); CREATININE 1.1 mg/dL (0.7-1.3); GFR 77.7; POTASSIUM 3.5 mmol/L (3.5-5.1)
[2021-07-06 20:08] LABS: BACTERIA,URINE FEW /HPF (0-FEW); BILIRUBIN,URINE NEGATIVE (NEG); CLARITY,URINE CLEAR; COLOR,URINE YELLOW; NITRITE,URINE NEGATIVE (NEG); PH,URINE 6.5 (<5.0-8.0); PROTEIN,URINE NEGATIVE (NEG-TRACE); RBC,URINE 0 /HPF (0-2); UROBILINOGEN,URINE 0.2 mg/dL (0.2 mg/dL)
[2021-07-06 20:08] LABS: ALBUMIN 3.9 g/dL (3.4-5.0); ALBUMIN/GLOBULIN RATIO 1.1 (1.0-1.7); TOTAL BILIRUBIN 0.7 mg/dL (0.2-1.0); TOTAL PROTEIN 7.3 g/dL (6.4-8.2)
[2021-07-06] MEDS ORDERED: CEPH500C PO (20:31)
--- NOTE | 2021-07-06 20:32 | PHYS DOC ---
Past Medical History Past Medical History: CAD, GERD, High Cholesterol, Heart Disease, Hypertension, Other Additional Past Medical Histor: ENLARGED PROSTATE,NSTEMI Past Surgical History: No Surgical History, Angioplasty Additional Past Surgical Histo: Cardiac STENTS x2. Smoking Status: Former Smoker Alcohol Use: None Drug Use: None General Adult EDM: Chief Complaint: HYPERTENSION HPI: HPI: Patient is a 81 year old male with history of hypertension who presents with reports of increased blood pressure over the past day and a half. Patient states that yesterday, he had [employer] n[employer]. He noticed afterward that his systolic blood pressure was around 140. Since that time, he is rechecked multiple times and has noticed a steady increase in his systolic blood pressure. He reports his diastolic blood pressure is somewhere between 80 and 90 when he checks at home. Patient denies headache, chest pain, palpitations, shortness of breath, cough, dysuria, hematuria, flank pain, abdominal pain, N/V/D. Patient has no other complaints at this time. Review of Systems: Review of Systems: 12 systems reviewed. ROS negative except as mentioned in HPI. Heart Score: C/O Chest Pain: No Allergies: Allergies: Allergies Coded Allergies Type Severity Reaction Last Updated Verified No Known Drug Allergies 06/15/16 No Physical Exam: PE: Constitutional: Well developed, well nourished, no acute distress, non-toxic appearance. HENT: Normocephalic, atraumatic, bilateral external ears normal, oropharynx moist, no oral exudates, nose normal. Eyes: PERRLA, EOMI, conjunctiva normal, no discharge, arcus senilis bilaterally. Cardiovascular: Heart rate regular rhythm, no murmur. No JVD. Lungs & Thorax: Bilateral breath sounds clear to auscultation. Abdomen: Bowel sounds normal, soft, no tenderness, no masses, no pulsatile masses. Extremities: No tenderness, no cyanosis, no clubbing, ROM intact, no edema. Neurologic: Alert and oriented x4, normal motor function, normal sensory function, no focal deficits noted. Current Patient Data: Labs: Laboratory Tests Test 07/06/21 19:35 07/06/21 19:40 White Blood Count 6.6 x10^3/uL (4.0-11.0) Red Blood Count 4.40 x10^6/uL (4.30-5.70) Hemoglobin 14.7 g/dL (13.0-17.5) Hematocrit 44.0 % (39.0-53.0) Mean Corpuscular Volume 100 fL (79-100) Mean Corpuscular Hemoglobin 33 pg (25-35) Mean Corpuscular Hemoglobin Concent 33 g/dL (31-37) Red Cell Distribution Width 13.4 % (11.5-14.5) Platelet Count 175 x10^3/uL (140-400) Neutrophils (%) (Auto) 74 % (31-73) H Lymphocytes (%) (Auto) 15 % (24-48) L Monocytes (%) (Auto) 9 % (0-9) Eosinophils (%) (Auto) 2 % (0-3) Basophils (%) (Auto) 1 % (0-3) Neutrophils # (Auto) 4.9 x10^3/uL (1.8-7.7) Lymphocytes # (Auto) 1.0 x10^3/uL (1.0-4.8) Monocytes # (Auto) 0.6 x10^3/uL (0.0-1.1) Eosinophils # (Auto) 0.1 x10^3/uL (0.0-0.7) Basophils # (Auto) 0.0 x10^3/uL (0.0-0.2) Sodium Level 144 mmol/L (136-145) Potassium Level 3.5 mmol/L (3.5-5.1) Chloride Level 105 mmol/L (98-107) Carbon Dioxide Level 27 mmol/L (21-32) Anion Gap 12 (6-14) Blood Urea Nitrogen 13 mg/dL (8-26) Creatinine 1.1 mg/dL (0.7-1.3) Estimated GFR (Cockcroft-Gault) 77.7 BUN/Creatinine Ratio 12 (6-20) Glucose Level 105 mg/dL (70-99) H Calcium Level 9.5 mg/dL (8.5-10.1) Total Bilirubin 0.7 mg/dL (0.2-1.0) Aspartate Amino Transferase (AST) 31 U/L (15-37) Alanine Aminotransferase (ALT) 43 U/L (16-63) Alkaline Phosphatase 80 U/L (46-116) Total Protein 7.3 g/dL (6.4-8.2) Albumin 3.9 g/dL (3.4-5.0) Albumin/Globulin Ratio 1.1 (1.0-1.7) Urine Collection Type Unknown Urine Color Yellow Urine Clarity Clear Urine pH 6.5 (<5.0-8.0) Urine Specific [place] <=1.005 (1.000-1.030) Urine Protein Negative mg/dL (NEG-TRACE) Urine Glucose (UA) Negative mg/dL (NEG) Urine Ketones (Stick) Negative mg/dL (NEG) Urine Blood Negative (NEG) Urine Nitrite Negative (NEG) Urine Bilirubin Negative (NEG) Urine Urobilinogen Dipstick 0.2 mg/dL (0.2 mg/dL) Urine Leukocyte Esterase Small (NEG) Urine RBC 0 /HPF (0-2) Urine WBC 5-10 /HPF (0-4) Urine Squamous Epithelial Cells Few /LPF Urine Bacteria Few /HPF (0-FEW) Laboratory Tests 07/06/21 19:35 Laboratory Tests 07/06/21 19:35 Vital Signs: Vital Signs Date Time Temp Pulse Resp B/P (MAP) Pulse Ox O2 Delivery O2 Flow Rate FiO2 07/06/21 18:40 97.8 75 17 173/91 (118) 100 Room Air 97.8 Repeat blood pressure 168/85 while in room with patient. EKG: EKG: EKG Interpreted by Dr. Paz 1846: Regular rate and rhythm 74 bpm with no ectopic beats. Diffuse ST depressions and T wave inversions. No STEMI. Radiology/Procedures: Radiology/Procedures: PROCEDURE: PORTABLE CHEST 1V EXAMINATION: Chest radiograph. VIEWS: Single AP view of the chest COMPARISON: 12/25/2020 INDICATION:81 years, Male, hypertension. FINDINGS: Normal cardiomediastinal silhouette. No focal consolidation. No pleural effusion or pneumothorax. No acute osseous process. IMPRESSION: No acute cardiopulmonary process. Electronically signed by: Devan Bunn DO (07/06/2021 7:48 PM) [facility] Course & Med Decision Making: Course & Med Decision Making Pertinent Labs and Imaging studies reviewed. (See chart for details) Patient work-up consists of EKG, chest x-ray and lab work. Work-up today is largely unremarkable. There is no evidence of end-organ damage. Had discussion with patient about systolic versus diastolic blood pressures, and the effects that stress and anxiety can have on blood pressure. Patient reports he thinks that he may need to adjust his medication regimen, but that his primary care provider is now a hospitalist, so he no longer sees him. Patient will be provided with a list of providers to resume primary care. Advised patient to keep a daily blood pressure log, checking his blood pressure once in the morning and once at night. He should log these in a notebook and bring it with him to his PCP visit. At that time, they can discuss his medication regimen. Patient understands and is agreeable to discharge plan. Dragon Disclaimer: [employer] Disclaimer: This electronic medical record was generated, in whole or in part, using a voice recognition dictation system. Departure Departure Impression: Primary Impression: Elevated systolic blood pressure reading with diagnosis of hypertension Additional Impression: UTI (urinary tract infection) Qualified Codes: N39.0 - Urinary tract infection, site not specified Disposition: HOME / SELF CARE / HOMELESS Condition: STABLE Referrals: ROSE SAMSON MD (PCP) Patient Instructions: Hypertension, [id number], Urinary Tract Infection, Jrns-eb-Wilm Additional Instructions: EMERGENCY DEPARTMENT GENERAL DISCHARGE INSTRUCTIONS Thank you for coming to [facility] Emergency Department (ED) today and trusting us with you care. We trust that you had a positive experience in our Emergency Department. If you wish to speak to the department management, you may call the Director at [phone]. YOUR FOLLOW UP INSTRUCTIONS ARE FOLLOWS: 1. You were provided with a resource list of physicians or clinics that may be able to assist you with follow up care. Please schedule an appointment as soon as possible. 2. The Emergency provider has interpreted your x-rays. The X-Ray specialist also reviewed them. 3. A lab test or culture has been done, your results will be reviewed and you will be notified if you need a change in treatment. ADDITIONAL INSTRUCTIONS AND INFORMATION: 1. Your care today has been supervised by a physician who is specially trained in emergency care. Many problems require more than one evaluation for a complete diagnosis and treatment. We recommend that you schedule your follow up appointment as recommended to ensure complete treatment of you illness or injury. If you are unable to obtain follow up care and continue to have a problem, or if your condition worsens, we recommend that you return to the ED. 2. We are not able to safely determine your condition over the phone nor are we able to give sound medical advice over the phone. For these safety reasons, if you call for medical advice we will ask you to come to the ED for further evaluation. 3. If you have any questions regarding these discharge instructions please call the ED at [phone]. SAFETY INFORMATION: In the interest of safety, wellness, and injury prevention; we encourage you to wear your sealbelt, if you smoke; quite smoking, and we encourage family to use a protective helmet for bicycling and other sporting events that present an increased risk for head injury. IF YOUR SYMPTOMS WORSEN OR NEW SYMPTOMS DEVELOP, OR YOU HAVE CONCERNS ABOUT YOUR CONDITION; OR IF YOUR CONDITION WORSENS WHILE YOU ARE WAITING FOR YOUR FOLLOW UP APPOINTMENT; EITHER CONTACT YOUR PRIMARY CARE DOCTOR, THE PHYSICIAN WHOSE NAME AND NUMBER YOU WERE GIVEN, OR RETURN TO THE ED IMMEDIATELY. Scripts Cephalexin (KEFLEX) 500 Mg Capsule 1 CAP PO QID, #40 CAP Prov: MIMI TIERNEY 07/06/21 MIMI TIERNEY Jul 06, 2021 20:32
[2021-07-06 21:08] VITALS: BP 146/84
--- NOTE | 2021-07-07 04:50 | EKG ---
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
== END 2021-07-06 21:21 | disposition home or self-care (01) ==
LOC: ER 18:26
DX: I11.9 Hypertensive heart disease without heart failure (principal); N39.0 Urinary tract infection, site not specified; I25.10 Atherosclerotic heart disease of native coronary artery without angina pectoris; K21.9 Gastro-esophageal reflux disease without esophagitis; E78.00 Pure hypercholesterolemia, unspecified
CPT/HCPCS: 36415; 71045; 80053; 81001; 85025; 87086; 93005; 99285

== ENCOUNTER 2021-07-16 19:02 | Emergency (ER) | payer MEDICARE ==
[~2021-07-16 19:02] MED LIST changes: +CEPH500C PO
== END 2021-07-16 19:55 | disposition left against medical advice (07) ==
LOC: ER 19:02
DX: I10 Essential (primary) hypertension (principal); Z53.21 Procedure and treatment not carried out due to patient leaving prior to being seen by health care provider

== ENCOUNTER 2021-11-02 15:39 | Emergency (ER) | payer MEDICARE ==
[~2021-11-02] VITALS: Ht 182.9 cm; Wt 81.7 kg
--- NOTE | 2021-11-02 16:13 | ED.ADGEN ---
Past Medical History Past Medical History: CAD, GERD, High Cholesterol, Heart Disease, Hypertension, Other Additional Past Medical Histor: ENLARGED PROSTATE,NSTEMI Past Surgical History: No Surgical History, Angioplasty Additional Past Surgical Histo: Cardiac STENTS x2. Smoking Status: Former Smoker Alcohol Use: None Drug Use: None General Adult EDM: Chief Complaint: CHEST PAIN HPI: HPI: Patient is a 81 year old male coming into the emergency department for evaluation of chest pain is been having over the past few days. Patient states the pain started when he was cleaning his for parasitic pain is worse with exertion. Describes as a dull pressure-like pain over his left chest. This does not radiate. Is a couple times when he is exerting himself he gets a little diaphoretic. Patient has a history of 2 cardiac stents placed 5 years ago. Has been taking aspirin intermittently for the pain. States he does not have any pain now while he is at rest. Review of Systems: Review of Systems: All other systems within normal limits except for as noted in the HPI Current Medications: Current Medications Medications (Trade) Dose Ordered Sig/Narcisa Start Time Stop Time Status Last Admin Dose Admin Aspirin (Aspirin Chewable) 162 mg 1X ONCE 11/02/21 16:15 11/02/21 16:16 DC 11/02/21 16:16 162 MG Allergies: Allergies: Allergies Coded Allergies Type Severity Reaction Last Updated Verified No Known Drug Allergies 06/15/16 No Physical Exam: PE: Constitutional: Well developed, well nourished, no acute distress, non-toxic appearance. [] HENT: Normocephalic, atraumatic, bilateral external ears normal, nose normal. [] Eyes: PERRLA, conjunctiva normal, no discharge. [] Neck: No rigidity, supple, no stridor. [] Cardiovascular: Regular rate and rhythm, brisk cap refill. Symmetric radial pulses, no murmurs or gallop [] Lungs & Thorax: Non labored symmetric respirations, no tachypnea or respiratory distress. Lungs clear to auscultation [] Abdomen: Soft, nondistended. Skin: Warm, dry, no erythema, no rash. [] Back: Unremarkable Extremities: No deformities, range of motion grossly intact, no lower extremity edema [] Neurologic: Alert and oriented X 3, no focal deficits noted. [] Psychologic: Affect normal, judgement normal, mood normal. [] Current Patient Data: Labs: Laboratory Tests Test 11/02/21 15:49 11/02/21 16:45 11/02/21 16:50 White Blood Count 6.4 x10^3/uL (4.0-11.0) Red Blood Count 4.25 x10^6/uL (4.30-5.70) L Hemoglobin 14.0 g/dL (13.0-17.5) Hematocrit 42.3 % (39.0-53.0) Mean Corpuscular Volume 100 fL (79-100) Mean Corpuscular Hemoglobin 33 pg (25-35) Mean Corpuscular Hemoglobin Concent 33 g/dL (31-37) Red Cell Distribution Width 13.4 % (11.5-14.5) Platelet Count 202 x10^3/uL (140-400) Neutrophils (%) (Auto) 54 % (31-73) Lymphocytes (%) (Auto) 29 % (24-48) Monocytes (%) (Auto) 13 % (0-9) H Eosinophils (%) (Auto) 4 % (0-3) H Basophils (%) (Auto) 1 % (0-3) Neutrophils # (Auto) 3.4 x10^3/uL (1.8-7.7) Lymphocytes # (Auto) 1.9 x10^3/uL (1.0-4.8) Monocytes # (Auto) 0.8 x10^3/uL (0.0-1.1) Eosinophils # (Auto) 0.2 x10^3/uL (0.0-0.7) Basophils # (Auto) 0.0 x10^3/uL (0.0-0.2) Prothrombin Time 13.0 SEC (11.7-14.0) Prothrombin Time INR 1.0 (0.8-1.1) Urine Collection Type Unknown Urine Color Yellow Urine Clarity Clear Urine pH 6.5 (<5.0-8.0) Urine Specific [place] 1.010 (1.000-1.030) Urine Protein Negative mg/dL (NEG-TRACE) Urine Glucose (UA) Negative mg/dL (NEG) Urine Ketones (Stick) Negative mg/dL (NEG) Urine Blood Negative (NEG) Urine Nitrite Negative (NEG) Urine Bilirubin Negative (NEG) Urine Urobilinogen Dipstick 0.2 mg/dL (0.2 mg/dL) Urine Leukocyte Esterase Negative (NEG) Urine RBC 0 /HPF (0-2) Urine WBC 0 /HPF (0-4) Urine Squamous Epithelial Cells Few /LPF Urine Bacteria 0 /HPF (0-FEW) Sodium Level 137 mmol/L (136-145) Potassium Level 3.6 mmol/L (3.5-5.1) Chloride Level 105 mmol/L (98-107) Carbon Dioxide Level 29 mmol/L (21-32) Anion Gap 3 (6-14) L Blood Urea Nitrogen 15 mg/dL (8-26) Creatinine 1.3 mg/dL (0.7-1.3) Estimated GFR (Cockcroft-Gault) 64.1 BUN/Creatinine Ratio 12 (6-20) Glucose Level 95 mg/dL (70-99) Calcium Level 8.9 mg/dL (8.5-10.1) Magnesium Level 1.9 mg/dL (1.8-2.4) Total Bilirubin 0.7 mg/dL (0.2-1.0) Aspartate Amino Transferase (AST) 27 U/L (15-37) Alanine Aminotransferase (ALT) 33 U/L (16-63) Alkaline Phosphatase 74 U/L (46-116) Troponin I High Sensitivity 13 ng/L (4-75) BG-Vbr-Q-Type Natriuretic Peptide 281 pg/mL (0-449) Total Protein 7.6 g/dL (6.4-8.2) Albumin 3.8 g/dL (3.4-5.0) Albumin/Globulin Ratio 1.0 (1.0-1.7) Laboratory Tests 11/02/21 15:49 Laboratory Tests 11/02/21 16:50 Vital Signs: Vital Signs Date Time Temp Pulse Resp B/P (MAP) Pulse Ox O2 Delivery O2 Flow Rate FiO2 11/02/21 16:46 82 15 159/84 (109) 99 Room Air 11/02/21 15:40 98.2 98.2 EKG: EK: Sinus rhythm, left axis deviation, no STEMI, T wave inversions in V5 and V6 that are new when compared to EKG from 07-13-19 1640: NSR, HR 64. No change[] Heart Score: C/O Chest Pain: Yes HEART Score for Chest Pain: HEART Score for Chest Pain Response (Comments) Value History Moderately Suspicious 1 ECG Normal 0 Age > 65 2 Risk Factors >3 Risk Factors or Hx CAD 2 Troponin < Normal Limit 0 Total 5 Risk Factors: Risk Factors: DM, Current or recent (<one month) smoker, HTN, HLP, family history of CAD, obesity. Risk Scores: Score 0 - 3: 2.5% MACE over next 6 weeks - Discharge Home Score 4 - 6: 20.3% MACE over next 6 weeks - Admit for Clinical Observation Score 7 - 10: 72.7% MACE over next 6 weeks - Early Invasive Strategies Radiology/Procedures: Radiology/Procedures: [facility] [address] [place], [place] [id number] IMAGING REPORT Signed PATIENT: KATHLEEN LUU ACCOUNT: [id number] : 1940 LOCATION: ER AGE: 81 SEX: M EXAM STATUS: REG ER ORD. PHYSICIAN: JÚNIOR HER MD REASON: chest pain PROCEDURE: PORTABLE CHEST 1V Exam: Chest one view INDICATION: Chest pain TECHNIQUE: Frontal view of the chest Comparisons: 07/06/2021 FINDINGS: Heart is mildly enlarged. Pulmonary vessels are within normal limits. The lung and pleural spaces are clear. IMPRESSION: No acute pulmonary process. Electronically signed by: Eunice Casper MD (11/02/2021 4:33 PM) [facility] DICTATED and SIGNED BY: EUNICE CASPER MD DATE: 11/02/211631 [] Course & Med Decision Making: Course & Med Decision Making Pertinent Labs and Imaging studies reviewed. (See chart for details) Negative troponin despite 2 days of symptoms. Patient states he has been lifting weights the next he might have overexerted himself. Offered admission for stress test and cardiology consult. 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 Discussed strict return precautions [] Dragon Disclaimer: [employer] Disclaimer: This electronic medical record was generated, in whole or in part, using a voice recognition dictation system. Departure Departure Impression: Primary Impression: Chest pain Disposition: 01 HOME / SELF CARE / HOMELESS Condition: STABLE Referrals: ROSE SAMSON MD (PCP) Patient Instructions: Chest Pain (Nonspecific) JÚNIOR HER MD Nov 02, 2021 16:13
[2021-11-02] MEDS ORDERED: ASPIRIN CHEWABLE 81 MG TABLET. PO ONE (16:15)
--- NOTE | 2021-11-02 16:16 | EKG ---
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
[2021-11-02 16:34] LABS: BASO % 1 % (0-3); EOS # 0.2 x10^3/uL (0.0-0.7); EOS % 4 % (0-3); HEMATOCRIT 42.3 % (39.0-53.0); LYMPH # 1.9 x10^3/uL (1.0-4.8); LYMPH % 29 % (24-48); MEAN CORPUSCULAR HEMOGLOBIN 33 pg (25-35); MEAN CORPUSCULAR HGB CONC 33 g/dL (31-37); MEAN CORPUSCULAR VOLUME 100 fL (79-100); MONO # 0.8 x10^3/uL (0.0-1.1); MONO % 13 % (0-9); NEUT # 3.4 x10^3/uL (1.8-7.7); NEUT % 54 % (31-73); PLATELET COUNT 202 x10^3/uL (140-400); RED BLOOD COUNT 4.25 x10^6/uL (4.30-5.70); RED CELL DISTRIBUTION WIDTH 13.4 % (11.5-14.5); WHITE BLOOD COUNT 6.4 x10^3/uL (4.0-11.0)
--- NOTE | 2021-11-02 16:35 | RAD ---
Exam: Chest one view INDICATION: Chest pain TECHNIQUE: Frontal view of the chest Comparisons: 07/06/2021 FINDINGS: Heart is mildly enlarged. Pulmonary vessels are within normal limits. The lung and pleural spaces are clear. IMPRESSION: No acute pulmonary process. Electronically signed by: Eunice Carranza MD (11/02/2021 4:33 PM) [facility]
[2021-11-02 16:46] VITALS: BP 159/84
[2021-11-02 17:26] LABS: CALCIUM 8.9 mg/dL (8.5-10.1); CREATININE 1.3 mg/dL (0.7-1.3); GFR 64.1; POTASSIUM 3.6 mmol/L (3.5-5.1)
[2021-11-02 17:27] LABS: BILIRUBIN,URINE NEGATIVE (NEG); CLARITY,URINE CLEAR; COLOR,URINE YELLOW; NITRITE,URINE NEGATIVE (NEG); PH,URINE 6.5 (<5.0-8.0); PROTEIN,URINE NEGATIVE (NEG-TRACE); UROBILINOGEN,URINE 0.2 mg/dL (0.2 mg/dL)
[2021-11-02 17:28] LABS: BACTERIA,URINE 0 /HPF (0-FEW); RBC,URINE 0 /HPF (0-2); WBC,URINE 0 /HPF (0-4)
[2021-11-02 17:33] LABS: ALBUMIN 3.8 g/dL (3.4-5.0); MAGNESIUM 1.9 mg/dL (1.8-2.4); TOTAL BILIRUBIN 0.7 mg/dL (0.2-1.0); TOTAL PROTEIN 7.6 g/dL (6.4-8.2)
--- NOTE | 2021-11-03 05:00 | EKG ---
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
== END 2021-11-02 18:10 | disposition home or self-care (01) ==
LOC: ER 15:39
DX: R07.89 Other chest pain (principal); K21.9 Gastro-esophageal reflux disease without esophagitis; I25.10 Atherosclerotic heart disease of native coronary artery without angina pectoris; E78.00 Pure hypercholesterolemia, unspecified; I11.9 Hypertensive heart disease without heart failure; Z87.891 Personal history of nicotine dependence; Z95.5 Presence of coronary angioplasty implant and graft
CPT/HCPCS: 36415; 71045; 80053; 81001; 83735; 83880; 84484; 85025; 85610; 93005; 99285-25